=== PATIENT | female | born 1955 | race Two or more races ===

== ENCOUNTER 2019-03-14 18:17 | Inpatient (IN) | payer OTHER ==
[~2019-03-14] VITALS: Ht 167.6 cm; Wt 127.6 kg
[2019-03-14] MEDS ORDERED: ATOR40TA59 PO (18:44)
[2019-03-14] MEDS ORDERED: BENZ0.5T32 PEG (18:44)
[2019-03-14] MEDS ORDERED: TRAM50TA PEG (18:44)
[2019-03-14] MEDS ORDERED: POTA20TA4 PEG (18:44)
[2019-03-14] MEDS ORDERED: CETI10TA16 PEG (18:44)
[2019-03-14] MEDS ORDERED: AMLO10TA8 PEG (18:44)
[2019-03-14] MEDS ORDERED: ASEN10TA9 SL (18:44)
[2019-03-14] MEDS ORDERED: MIRT30TA PEG (18:44)
[2019-03-14] MEDS ORDERED: CLOT15CR4 TP (18:44)
[2019-03-14] MEDS ORDERED: RANI150C PO (18:44)
[2019-03-14] MEDS ORDERED: ROPI1TAB2 PEG (18:44)
[2019-03-14] MEDS ORDERED: METF500T16 PEG (18:44)
[2019-03-14] MEDS ORDERED: LEVO125T5 PEG (18:44)
[2019-03-14] MEDS ORDERED: POLY17PO5 PEG (18:44)
[2019-03-14] MEDS ORDERED: FLUO10CA14 PO (18:44)
[2019-03-14] MEDS ORDERED: INSU100I13 SQ (18:44)
[2019-03-14] MEDS ORDERED: GABA-586 PO (18:44)
[2019-03-14] MEDS ORDERED: MELA3TAB56 PEG (18:44)
[2019-03-14] MEDS ORDERED: METO10TA81 PEG (18:44)
[2019-03-14] MEDS ORDERED: CHOL10003 PEG (18:44)
[2019-03-14] MEDS ORDERED: GABA250S6 PEG (19:45)
[2019-03-14] MEDS ORDERED: FLUO20SO2 PO (19:45)
[2019-03-14] MEDS ORDERED: ATOR20TA58 PEG (19:45)
[2019-03-14] MEDS ORDERED: RANI15SY PEG (19:45)
[2019-03-14] MEDS ORDERED: POLYETHYLENE GLYCOL 3350 17 GM PACKET. PEG PRN (19:45)
[2019-03-14] MEDS ORDERED: INSU100V31 SQ (19:45)
[2019-03-14] MEDS ORDERED: MAGNESIUM HYDROXIDE 2,400 MG/30 ML ORAL.SUSP. PEG PRN (20:00)
[2019-03-14] MEDS ORDERED: MAG HYDROX/AL HYDROX/SIMETH 30 ML ORAL.SUSP PO PRN (20:00)
--- NOTE | 2019-03-14 20:41 | PDOC ---
Exam Note: Bradford Note: Please also refer to the separate dictated note~for this date of service dictated separately. Discussed the patient with Nursing staff reviewed the chart.~Reviewed interim history and current functioning. Reviewed vital signs,~Labs/ Radiology~and current medications noted below. Continue current treatment with the changes noted in the dictated addendum note Current Medications: I have reviewed the current psychotropics carefully including drug interactions. Risk benefit ratio favors no change other than as noted in my dictated progress note. KADEN ROSSI MD Mar 14, 2019 20:41
[2019-03-14] MEDS ORDERED: ATORVASTATIN CALCIUM 20 MG TABLET PO SCH (21:00)
[2019-03-14 21:11] LABS: BASO # 0.1 x10^3/uL (0.0-0.2); BASO % 1 % (0-3); EOS # 0.2 x10^3/uL (0.0-0.7); EOS % 2 % (0-3); HEMOGLOBIN 15.5 g/dL (12.0-15.5); LYMPH % 23 % (24-48); MEAN CORPUSCULAR HEMOGLOBIN 32 pg (25-35); MEAN CORPUSCULAR HGB CONC 33 g/dL (31-37); MEAN CORPUSCULAR VOLUME 96 fL (79-100); MONO # 0.7 x10^3/uL (0.0-1.1); MONO % 8 % (0-9); NEUT # 5.7 x10^3uL (1.8-7.7); NEUT % 66 % (31-73); PLATELET COUNT 235 x10^3/uL (140-400); RED BLOOD COUNT 4.91 x10^6/uL (3.50-5.40); RED CELL DISTRIBUTION WIDTH 14.8 % (11.5-14.5); WHITE BLOOD COUNT 8.6 x10^3/uL (4.0-11.0)
[2019-03-14 21:20] LABS: ALBUMIN 3.4 g/dL (3.4-5.0); ALBUMIN/GLOBULIN RATIO 0.7 (1.0-1.7); CREATININE 1.2 mg/dL (0.6-1.0); GFR 45.7; MAGNESIUM 1.6 mg/dL (1.8-2.4); POTASSIUM 4.2 mmol/L (3.5-5.1); TOTAL BILIRUBIN 1.2 mg/dL (0.2-1.0); TOTAL PROTEIN 8.3 g/dL (6.4-8.2)
[2019-03-14 21:31] LABS: BACTERIA,URINE MOD /HPF (0-FEW); BILIRUBIN,URINE NEG (NEG); CLARITY,URINE HAZY; COLOR,URINE YELLOW; GLUCOSE,URINE >=1000 mg/dL (NEG); NITRITE,URINE NEG (NEG); SQUAMOUS EPITHELIAL CELL,UR MOD /LPF; UROBILINOGEN,URINE 0.2 mg/dL (0.2 mg/dL)
[2019-03-14] MEDS: MELATONIN 3 MG TABLET PEG SCH (21:46)
[2019-03-14] MEDS: BENZTROPINE MESYLATE 0.5 MG TABLET PEG SCH (21:46)
[2019-03-14] MEDS: ATORVASTATIN CALCIUM 20 MG TABLET PEG SCH (21:46)
[2019-03-14] MEDS: rOPINIRole 1 MG TABLET. PEG SCH (21:46)
[2019-03-14] MEDS: GABAPENTIN 250 MG/5 ML ORAL SOLUTION. PO SCH (21:46)
[2019-03-14] MEDS: MIRTAZAPINE 30 MG TABLET PEG SCH (21:46)
[2019-03-14] MEDS: CLOTRIMAZOLE 1% TOPICAL CREAM 30GM TUBE. TP SCH (21:47)
[2019-03-14] MEDS: traMADol 50 MG TABLET PEG PRN (21:47)
[2019-03-14] MEDS: INSULIN GLARGINE SYRINGE. SQ SCH (21:48)
[2019-03-15] MEDS: LEVOTHYROXINE 125 MCG TABLET PEG SCH (05:41)
[2019-03-15 05:58] VITALS: BP 167/81
[2019-03-15] MEDS: GABAPENTIN 250 MG/5 ML ORAL SOLUTION. PO SCH ×2 (07:41→20:37)
[2019-03-15] MEDS: POTASSIUM BICARB 20 MEQ EFFERVESCENT TABLET. PEG SCH (07:41)
[2019-03-15] MEDS: metFORMIN 500 MG TABLET PO SCH ×2 (07:41→17:31)
[2019-03-15] MEDS: CHOLECALCIFEROL (VITAMIN D3) 1,000 UNIT TABLET PEG SCH (07:42)
[2019-03-15] MEDS: CETIRIZINE HCL 10 MG TABLET PEG SCH (07:42)
[2019-03-15] MEDS: METOCLOPRAMIDE 5 MG TABLET PEG SCH ×3 (07:42→17:31)
[2019-03-15] MEDS: FAMOTIDINE 20 MG TABLET PEG SCH ×2 (07:42→17:31)
[2019-03-15] MEDS: amLODIPine BESYLATE 5 MG TABLET PEG SCH (07:42)
[2019-03-15] MEDS: CLOTRIMAZOLE 1% TOPICAL CREAM 30GM TUBE. TP SCH ×2 (07:43→20:37)
[2019-03-15] MEDS: INSULIN LISPRO 300 UNITS/3 ML VIAL. SQ SCH ×3 (08:12→17:33)
[2019-03-15] MEDS ORDERED: FLU VAX QS 2019-20 (36MOS+)/PF 0.5 ML SYRINGE. VAX IM ONE (09:00)
[2019-03-15] MEDS: traMADol 50 MG TABLET PEG PRN ×2 (10:12→20:37)
[2019-03-15 11:30] VITALS: BP 136/68
[2019-03-15 11:55] LABS: BGAS PH 7.49 (7.35-7.45)
[2019-03-15 11:57] LABS: HEMATOCRIT 42.9 % (36.0-47.0); HEMOGLOBIN 14.2 g/dL (12.0-15.5); RED BLOOD COUNT 4.48 x10^6/uL (3.50-5.40); RED CELL DISTRIBUTION WIDTH 14.6 % (11.5-14.5); WHITE BLOOD COUNT 6.6 x10^3/uL (4.0-11.0)
[2019-03-15 12:04] LABS: ALBUMIN 3.1 g/dL (3.4-5.0); ALBUMIN/GLOBULIN RATIO 0.7 (1.0-1.7); CALCIUM 9.1 mg/dL (8.5-10.1); CREATININE 1.2 mg/dL (0.6-1.0); GFR 45.7; POTASSIUM 4.3 mmol/L (3.5-5.1); TOTAL BILIRUBIN 1.5 mg/dL (0.2-1.0); TOTAL PROTEIN 7.5 g/dL (6.4-8.2)
[2019-03-15 13:12] LABS: THYROID STIM HORMONE (TSH) 4.152 uIU/mL (0.358-3.740)
--- NOTE | 2019-03-15 16:07 | RAD ---
CT HEAD WO CONTRAST History: Partially resected brain tumor for follow-up. Comparison: None. Technique: Noncontrast CT imaging was performed of the head. Exposure: One or more of the following individualized dose reduction techniques were utilized for this examination: 1. Automated exposure control 2. Adjustment of the mA and/or kV according to patient size 3. Use of iterative reconstruction technique. Findings: No intracranial hemorrhage. No mass effect. No hydrocephalus. Extra-axial spaces are unremarkable. Imaged orbits are unremarkable. Imaged paranasal sinuses are clear. Right mastoid air cells are clear. Postoperative changes left mastoidectomy with surgical clips in the region of the left jugular foramen. Permeative appearance of the left jugular foramen and skull base. Erosive changes extending into the middle ear. Impression: 1. No acute intracranial abnormality. 2. Postoperative changes left mastoidectomy and jugular foramen mass resection with permeative appearance of the skull base. Recommend compares with prior imaging studies. MRI with and without contrast can further better assess if indicated after comparison is made. Electronically signed by: Jamir Arriola DO (03/15/2019 4:04 PM) [id number]
[2019-03-15 16:17] VITALS: BP 118/79
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
[2019-03-15] MEDS: INSULIN GLARGINE SYRINGE. SQ SCH (20:31)
[2019-03-15] MEDS: MELATONIN 3 MG TABLET PEG SCH (20:36)
[2019-03-15] MEDS: MIRTAZAPINE 30 MG TABLET PEG SCH (20:36)
[2019-03-15] MEDS: BENZTROPINE MESYLATE 0.5 MG TABLET PEG SCH (20:37)
[2019-03-15] MEDS: rOPINIRole 1 MG TABLET. PEG SCH (20:37)
--- NOTE | 2019-03-15 20:53 | PDOC ---
Exam Note: Bradford Note: Please also refer to the separate dictated note~for this date of service dictated separately.~Patient seen individually. Discussed the patient with Nursing staff reviewed the chart.~Reviewed interim history and current functioning. Reviewed vital signs,~Labs/ Radiology~and current medications noted below. Continue current treatment with the changes noted in the dictated addendum note Assessment: Vital Signs/I&O: Vital Signs Date Time Temp Pulse Resp B/P (MAP) Pulse Ox O2 Delivery O2 Flow Rate FiO2 03/15/19 20:37 99 03/15/19 16:17 97.6 98 18 118/79 (92) 03/15/19 11:30 NonRebreather Mask 5.0 I & O 03/14/19 03/14/19 03/15/19 15:00 23:00 07:00 Intake Total 120 ml Balance 120 ml Labs: Laboratory Tests Test 03/14/19 20:53 03/14/19 21:46 03/15/19 08:05 03/15/19 11:35 White Blood Count 8.6 x10^3/uL (4.0-11.0) 6.6 x10^3/uL (4.0-11.0) Red Blood Count 4.91 x10^6/uL (3.50-5.40) 4.48 x10^6/uL (3.50-5.40) Hemoglobin 15.5 g/dL (12.0-15.5) 14.2 g/dL (12.0-15.5) Hematocrit 47.0 % (36.0-47.0) 42.9 % (36.0-47.0) Mean Corpuscular Volume 96 fL (79-100) 96 fL (79-100) Mean Corpuscular Hemoglobin 32 pg (25-35) 32 pg (25-35) Mean Corpuscular Hemoglobin Concent 33 g/dL (31-37) 33 g/dL (31-37) Red Cell Distribution Width 14.8 % (11.5-14.5) H 14.6 % (11.5-14.5) H Platelet Count 235 x10^3/uL (140-400) 192 x10^3/uL (140-400) Neutrophils (%) (Auto) 66 % (31-73) Lymphocytes (%) (Auto) 23 % (24-48) L Monocytes (%) (Auto) 8 % (0-9) Eosinophils (%) (Auto) 2 % (0-3) Basophils (%) (Auto) 1 % (0-3) Neutrophils # (Auto) 5.7 x10^3uL (1.8-7.7) Lymphocytes # (Auto) 2.0 x10^3/uL (1.0-4.8) Monocytes # (Auto) 0.7 x10^3/uL (0.0-1.1) Eosinophils # (Auto) 0.2 x10^3/uL (0.0-0.7) Basophils # (Auto) 0.1 x10^3/uL (0.0-0.2) Sodium Level 139 mmol/L (136-145) 138 mmol/L (136-145) Potassium Level 4.2 mmol/L (3.5-5.1) 4.3 mmol/L (3.5-5.1) Chloride Level 101 mmol/L (98-107) 99 mmol/L (98-107) Carbon Dioxide Level 28 mmol/L (21-32) 29 mmol/L (21-32) Anion Gap 10 (6-14) 10 (6-14) Blood Urea Nitrogen 22 mg/dL (7-20) H 21 mg/dL (7-20) H Creatinine 1.2 mg/dL (0.6-1.0) H 1.2 mg/dL (0.6-1.0) H Estimated GFR (Cockcroft-Gault) 45.7 45.7 BUN/Creatinine Ratio 18 (6-20) 18 (6-20) Glucose Level 262 mg/dL (70-99) H 223 mg/dL (70-99) H Calcium Level 9.0 mg/dL (8.5-10.1) 9.1 mg/dL (8.5-10.1) Magnesium Level 1.6 mg/dL (1.8-2.4) L Iron Level 54 ug/dL (50-170) Total Iron Binding Capacity 310 ug/dL (250-450) Iron Saturation 17 % (15-34) Total Bilirubin 1.2 mg/dL (0.2-1.0) H 1.5 mg/dL (0.2-1.0) H Aspartate Amino Transferase (AST) 17 U/L (15-37) 15 U/L (15-37) Alanine Aminotransferase (ALT) 18 U/L (14-59) 15 U/L (14-59) Alkaline Phosphatase 101 U/L (46-116) 85 U/L (46-116) Total Protein 8.3 g/dL (6.4-8.2) H 7.5 g/dL (6.4-8.2) Albumin 3.4 g/dL (3.4-5.0) 3.1 g/dL (3.4-5.0) L Albumin/Globulin Ratio 0.7 (1.0-1.7) L 0.7 (1.0-1.7) L Triglycerides Level 141 mg/dL (0-150) Cholesterol Level 153 mg/dL (0-200) LDL Cholesterol, Calculated 59 mg/dL (0-100) VLDL Cholesterol, Calculated 28 mg/dL (0-40) Non-HDL Cholesterol Calculated 87 mg/dL (0-129) HDL Cholesterol 66 mg/dL (40-60) H Cholesterol/HDL Ratio 2.0 Vitamin B12 Level 284 pg/mL (247-911) 25-Hydroxy Vitamin D Total 21.3 ng/mL (30-100) L Thyroid Stimulating Hormone (TSH) 4.152 uIU/mL (0.358-3.740) Treponema pallidum Antibody Nonreactive (Nonreactive) Glucose (Fingerstick) 304 mg/dL (70-99) H 298 mg/dL (70-99) H Test 03/15/19 11:40 03/15/19 12:43 03/15/19 17:17 03/15/19 19:05 Blood pH 7.49 (7.35-7.45) H Blood Gas PCO2 33 mmHg (35-45) L Blood Gas PO2 90 mmHg (80-100) Blood Gas HCO3 25 mmol/L (22-26) Arterial Bld O2 Saturation (Calc) 98 % (92-99) FiO2 21 % Glucose (Fingerstick) 164 mg/dL (70-99) H 155 mg/dL (70-99) H 208 mg/dL (70-99) H Current Medications: Meds: Current Medications Medications (Trade) Dose Ordered Sig/Earnest Route PRN Reason Start Time Stop Time Status Last Admin Dose Admin Amlodipine Besylate (Norvasc) 5 mg DAILY PEG 03/15/19 09:00 03/15/19 07:42 Cetirizine HCl (ZyrTEC) 10 mg DAILY PEG 03/15/19 09:00 03/15/19 07:42 Vitamin D (Vitamin D3) 2,000 unit DAILY PEG 03/15/19 09:00 03/15/19 07:42 Clotrimazole (Lotrimin) 1 kleber BID TP 03/14/19 21:00 03/15/19 20:37 Gabapentin (Neurontin Oral Soln) 500 mg BID PO 03/14/19 21:00 03/15/19 20:37 Levothyroxine Sodium (Synthroid) 125 mcg DAILY06 PEG 03/15/19 06:00 03/15/19 05:41 Metformin HCl (Glucophage) 500 mg BIDWMEALS PO 03/15/19 08:00 03/15/19 17:31 Metoclopramide HCl (Reglan) 5 mg TIDAC PEG 03/15/19 07:30 03/15/19 17:31 Potassium Bicarbonate (Potassium Effervescent Tablet) 20 meq DAILY PEG 03/15/19 09:00 03/15/19 07:41 Ropinirole HCl (Requip) 1 mg QHS PEG 03/14/19 21:00 03/15/19 20:37 Insulin Human Lispro (HumaLOG) 4 units TIDAC SQ 03/15/19 07:30 03/15/19 17:33 Insulin Glargine (Lantus Syringe) 6 unit QHS SQ 03/14/19 21:00 03/15/19 20:31 Famotidine (Pepcid) 20 mg BIDBFRMEAL PEG 03/15/19 07:30 03/15/19 17:31 Benztropine Mesylate (Cogentin) 0.5 mg QHS PEG 03/14/19 21:00 03/15/19 20:37 Fluoxetine HCl (PROzac ORAL SOLN) 10 mg DAILY PEG 03/15/19 09:00 03/15/19 07:43 Melatonin (Melatonin) 3 mg QHS PEG 03/14/19 21:00 03/15/19 20:36 Mirtazapine (Remeron) 30 mg QHS PEG 03/14/19 21:00 03/15/19 20:36 Atorvastatin Calcium (Lipitor) 20 mg QHS PEG 03/14/19 21:14 03/14/19 21:46 I have reviewed the current psychotropics carefully including drug interactions. Risk benefit ratio favors no change other than as noted in my dictated progress note. Diagnosis: Problems: (1) Major depressive disorder, recurrent episode (2) Anxiety disorder KADEN ROSSI MD Mar 15, 2019 20:53
[2019-03-16 00:48] VITALS: BP 0/81
[2019-03-16 06:00] VITALS: BP 173/90
[2019-03-16] MEDS: LEVOTHYROXINE 125 MCG TABLET PEG SCH (06:01)
[2019-03-16 06:07] LABS: HEMOGLOBIN A1C 8.7 % (4.8-5.6); THYROXINE 9.3 ug/dL (4.5-12.0)
[2019-03-16] MEDS: amLODIPine BESYLATE 5 MG TABLET PEG SCH (08:34)
[2019-03-16] MEDS: metFORMIN 500 MG TABLET PO SCH ×2 (08:34→17:00)
[2019-03-16] MEDS: FAMOTIDINE 20 MG TABLET PEG SCH ×2 (08:34→16:30)
[2019-03-16] MEDS: CETIRIZINE HCL 10 MG TABLET PEG SCH (08:34)
[2019-03-16] MEDS: METOCLOPRAMIDE 5 MG TABLET PEG SCH ×3 (08:35→16:30)
[2019-03-16] MEDS: CHOLECALCIFEROL (VITAMIN D3) 1,000 UNIT TABLET PEG SCH (08:35)
[2019-03-16] MEDS: POTASSIUM BICARB 20 MEQ EFFERVESCENT TABLET. PEG SCH (08:35)
[2019-03-16] MEDS: CLOTRIMAZOLE 1% TOPICAL CREAM 30GM TUBE. TP SCH ×2 (08:36→21:00)
[2019-03-16] MEDS: INSULIN LISPRO 300 UNITS/3 ML VIAL. SQ SCH ×3 (08:39→16:30)
[2019-03-16] MEDS: GABAPENTIN 250 MG/5 ML ORAL SOLUTION. PO SCH ×2 (08:44→20:05)
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
--- NOTE | 2019-03-16 15:13 | RAD ---
Esophagram 03/16/2019 CLINICAL HISTORY: The patient tried hanging herself yesterday with difficulty swallowing today. TECHNIQUE: An esophagram was performed under fluoroscopic control. The total fluoroscopic time is 3.5 minutes. 36 digital spot radiographs were obtained. FINDINGS: A PA radiograph of the chest was obtained as a clinical dermatologist. This demonstrates the cardiac silhouette to be borderline enlarged. The thoracic aorta is mildly tortuous. Left lower lobe subsegmental atelectasis and/or infiltrate is noted. There may be a small left pleural effusion. No pneumothorax is seen. Degenerative changes are seen involving the thoracic spine. The mucosal pattern of the hypopharynx and esophagus is within normal limits. The patient demonstrates mild penetration with swallowing the thin liquid barium. No aspiration is seen. Surgical clips are seen throughout the neck. There is prominence of the cricopharyngeus muscle without evidence of obstruction of flow of the barium into the cervical esophagus. Tertiary contractions of the esophagus are seen consistent with moderate to severe esophageal dysmotility. The GE junction is within normal limits. The patient was unable to be evaluated for reflux due to her limited mobility. IMPRESSION: 1. Mild laryngeal penetration. 2. Moderate to severe esophageal dysmotility. Electronically signed by: Minh Rothman MD (03/16/2019 3:10 PM) [id number]
[2019-03-16 16:01] VITALS: BP 149/85
[2019-03-16] MEDS: MIRTAZAPINE 30 MG TABLET PEG SCH (20:04)
[2019-03-16] MEDS: BENZTROPINE MESYLATE 0.5 MG TABLET PEG SCH (20:04)
[2019-03-16] MEDS: MELATONIN 3 MG TABLET PEG SCH (20:05)
[2019-03-16] MEDS: ATORVASTATIN CALCIUM 20 MG TABLET PEG SCH (20:05)
[2019-03-16] MEDS: rOPINIRole 1 MG TABLET. PEG SCH (20:05)
[2019-03-16] MEDS: INSULIN GLARGINE SYRINGE. SQ SCH (20:06)
--- NOTE | 2019-03-16 20:25 | PDOC ---
Exam Note: Bradford Note: Please also refer to the separate dictated note~for this date of service dictated separately.~Patient seen individually. Discussed the patient with Nursing staff reviewed the chart.~Reviewed interim history and current functioning. Reviewed vital signs,~Labs/ Radiology~and current medications noted below. Continue current treatment with the changes noted in the dictated addendum note Assessment: Vital Signs/I&O: Vital Signs Date Time Temp Pulse Resp B/P (MAP) Pulse Ox O2 Delivery O2 Flow Rate FiO2 03/16/19 16:01 98.1 116 20 149/85 (106) 94 03/15/19 11:30 NonRebreather Mask 5.0 I & O 03/15/19 03/15/19 03/16/19 15:00 23:00 07:00 Intake Total 300 ml 320 ml 80 ml Balance 300 ml 320 ml 80 ml Labs: Laboratory Tests Test 03/16/19 07:36 03/16/19 13:24 03/16/19 17:25 03/16/19 19:10 Glucose (Fingerstick) 176 mg/dL (70-99) H 248 mg/dL (70-99) H 255 mg/dL (70-99) H 323 mg/dL (70-99) H Current Medications: I have reviewed the current psychotropics carefully including drug interactions. Risk benefit ratio favors no change other than as noted in my dictated progress note. Diagnosis: Problems: (1) Anxiety disorder (2) Major depressive disorder, recurrent episode KADEN ROSSI MD Mar 16, 2019 20:25
[2019-03-17 05:33] VITALS: BP 168/74
[2019-03-17] MEDS: LEVOTHYROXINE 125 MCG TABLET PEG SCH (05:48)
[2019-03-17] MEDS: INSULIN LISPRO 300 UNITS/3 ML VIAL. SQ SCH ×3 (07:30→16:30)
[2019-03-17] MEDS: POTASSIUM BICARB 20 MEQ EFFERVESCENT TABLET. PEG SCH (08:47)
[2019-03-17] MEDS: metFORMIN 500 MG TABLET PO SCH ×2 (08:48→17:00)
[2019-03-17] MEDS: CETIRIZINE HCL 10 MG TABLET PEG SCH (08:48)
[2019-03-17] MEDS: METOCLOPRAMIDE 5 MG TABLET PEG SCH ×3 (08:48→16:30)
[2019-03-17] MEDS: FAMOTIDINE 20 MG TABLET PEG SCH ×2 (08:48→16:30)
[2019-03-17] MEDS: CHOLECALCIFEROL (VITAMIN D3) 1,000 UNIT TABLET PEG SCH (08:48)
[2019-03-17] MEDS: amLODIPine BESYLATE 5 MG TABLET PEG SCH (08:48)
[2019-03-17] MEDS: ARIPiprazole 5 MG TABLET PO SCH (08:55)
[2019-03-17] MEDS: GABAPENTIN 250 MG/5 ML ORAL SOLUTION. PO SCH ×2 (08:55→23:39)
[2019-03-17] MEDS: CLOTRIMAZOLE 1% TOPICAL CREAM 30GM TUBE. TP SCH ×2 (09:00→21:00)
[2019-03-17 15:47] VITALS: BP 157/73
[2019-03-17] MEDS: BENZTROPINE MESYLATE 0.5 MG TABLET PEG SCH (21:00)
[2019-03-17] MEDS: INSULIN GLARGINE SYRINGE. SQ SCH (21:00)
[2019-03-17] MEDS: ATORVASTATIN CALCIUM 20 MG TABLET PEG SCH (21:00)
[2019-03-17] MEDS: MELATONIN 3 MG TABLET PEG SCH (23:40)
[2019-03-17] MEDS: MIRTAZAPINE 30 MG TABLET PEG SCH (23:40)
[2019-03-17] MEDS: rOPINIRole 1 MG TABLET. PEG SCH (23:40)
[2019-03-18] MEDS: LEVOTHYROXINE 125 MCG TABLET PEG SCH (05:49)
[2019-03-18 05:58] VITALS: BP 166/89
[2019-03-18] MEDS: INSULIN LISPRO 300 UNITS/3 ML VIAL. SQ SCH ×3 (07:30→16:30)
[2019-03-18] MEDS: CLOTRIMAZOLE 1% TOPICAL CREAM 30GM TUBE. TP SCH ×2 (09:00→21:17)
[2019-03-18] MEDS: POTASSIUM BICARB 20 MEQ EFFERVESCENT TABLET. PEG SCH (09:00)
[2019-03-18] MEDS: GABAPENTIN 250 MG/5 ML ORAL SOLUTION. PO SCH ×2 (10:07→21:17)
[2019-03-18] MEDS: ARIPiprazole 5 MG TABLET PO SCH (10:07)
[2019-03-18] MEDS: FAMOTIDINE 20 MG TABLET PEG SCH ×2 (10:07→16:30)
[2019-03-18] MEDS: CHOLECALCIFEROL (VITAMIN D3) 1,000 UNIT TABLET PEG SCH (10:07)
[2019-03-18] MEDS: amLODIPine BESYLATE 5 MG TABLET PEG SCH (10:07)
[2019-03-18] MEDS: CETIRIZINE HCL 10 MG TABLET PEG SCH (10:07)
[2019-03-18] MEDS: metFORMIN 500 MG TABLET PO SCH ×2 (10:07→17:00)
[2019-03-18] MEDS: METOCLOPRAMIDE 5 MG TABLET PEG SCH ×3 (10:08→16:30)
[2019-03-18 16:11] VITALS: BP 145/82
[2019-03-18] MEDS: MELATONIN 3 MG TABLET PEG SCH (21:17)
[2019-03-18] MEDS: rOPINIRole 1 MG TABLET. PEG SCH (21:18)
[2019-03-18] MEDS: ATORVASTATIN CALCIUM 20 MG TABLET PEG SCH (21:18)
[2019-03-18] MEDS: MIRTAZAPINE 30 MG TABLET PEG SCH (21:18)
[2019-03-18] MEDS: BENZTROPINE MESYLATE 0.5 MG TABLET PEG SCH (21:18)
[2019-03-18] MEDS: traMADol 50 MG TABLET PEG PRN (21:21)
[2019-03-18] MEDS: INSULIN GLARGINE SYRINGE. SQ SCH (21:21)
--- NOTE | 2019-03-18 21:51 | PDOC ---
Exam Note: Bradford Note: This is a late entry for DOS 03/17/2019. Please also refer to the separate dictated note~for this date of service dictated separately.~Patient seen individually. Discussed the patient with Nursing staff reviewed the chart.~Reviewed interim history and current functioning. Reviewed vital signs,~Labs/ Radiology~and current medications noted below. Continue current treatment with the changes noted in the dictated addendum note Assessment: Vital Signs/I&O: Vital Signs Date Time Temp Pulse Resp B/P (MAP) Pulse Ox O2 Delivery O2 Flow Rate FiO2 03/18/19 16:11 97.4 85 20 145/82 (103) 98 03/17/19 05:33 Room Air 03/15/19 11:30 5.0 I & O 03/17/19 03/17/19 03/18/19 15:00 23:00 07:00 Intake Total 120 ml 0 ml 240 ml Balance 120 ml 0 ml 240 ml Labs: Laboratory Tests Test 03/18/19 07:26 03/18/19 12:37 03/18/19 17:54 03/18/19 20:10 Glucose (Fingerstick) 270 mg/dL (70-99) H 338 mg/dL (70-99) H 291 mg/dL (70-99) H 293 mg/dL (70-99) H Current Medications: I have reviewed the current psychotropics carefully including drug interactions. Risk benefit ratio favors no change other than as noted in my dictated progress note. Diagnosis: Problems: (1) Anxiety disorder (2) Major depressive disorder, recurrent episode KADEN ROSSI MD Mar 18, 2019 21:51
[2019-03-19 05:53] VITALS: BP 159/93
[2019-03-19] MEDS: LEVOTHYROXINE 125 MCG TABLET PEG SCH (06:00)
[2019-03-19] MEDS: CLOTRIMAZOLE 1% TOPICAL CREAM 30GM TUBE. TP SCH ×2 (09:00→21:27)
[2019-03-19] MEDS: metFORMIN 500 MG TABLET PO SCH ×2 (09:35→17:20)
[2019-03-19] MEDS: FAMOTIDINE 20 MG TABLET PEG SCH ×2 (09:35→17:20)
[2019-03-19] MEDS: INSULIN LISPRO 300 UNITS/3 ML VIAL. SQ SCH ×3 (09:35→17:17)
[2019-03-19] MEDS: METOCLOPRAMIDE 5 MG TABLET PEG SCH ×3 (09:35→17:20)
[2019-03-19] MEDS: amLODIPine BESYLATE 5 MG TABLET PEG SCH (09:36)
[2019-03-19] MEDS: POTASSIUM BICARB 20 MEQ EFFERVESCENT TABLET. PEG SCH (09:37)
[2019-03-19] MEDS: CHOLECALCIFEROL (VITAMIN D3) 1,000 UNIT TABLET PEG SCH (09:38)
[2019-03-19] MEDS: ARIPiprazole 5 MG TABLET PO SCH (09:39)
[2019-03-19] MEDS: GABAPENTIN 250 MG/5 ML ORAL SOLUTION. PO SCH ×2 (09:39→21:28)
--- NOTE | 2019-03-19 10:33 | PN ---
DATE: 03/16/2019 PSYCHIATRIC PROGRESS NOTE This late entry 03/16/2019 covers elements not covered in my initial note. SUBJECTIVE: I met with the patient evening of 03/16/2019. Per JOSETTE Walker, the patient slept 7-1/2 hours previous night. She has a PEG tube. Albumin 5. She has been somewhat withdrawn, depressed. Complains of feeling hopeless. Denies active suicidal ideation. REVIEW OF SYSTEMS: Impaired ambulation in wheelchair, difficulty swallowing due to her esophageal problems. No CV, system symptoms on review. MENTAL STATUS EXAM: Reasonably oriented. Speech has some latency, low in volume, coherent, abstraction fair, computation impaired, language function intact, attention span short. Mood and affect still somewhat withdrawn. LABORATORY DATA: Reviewed. IMPRESSION: Major depressive disorder with psychotic features; anxiety disorder, unspecified. PLAN: The patient is currently on Prozac 10 mg a day. We will increase to 20 mg a day. Maintain Remeron 30 mg at bedtime, melatonin 3 mg at bedtime. She is on benztropine 0.5 mg at bedtime, may add Abilify to augment the Prozac and as an atypical antipsychotic that we could use via the PEG tube. KADEN ROSSI MD DR: LAWSON/dimitri JOB#: [id number] / [id number]
[2019-03-19] MEDS: LORazepam INTENSOL 2 MG/ML BOTTLE SL PRN ×2 (13:06→20:57)
[2019-03-19 16:02] VITALS: BP 137/90
--- NOTE | 2019-03-19 20:24 | PDOC ---
Exam Note: Bradford Note: Please also refer to the separate dictated note~for this date of service dictated separately.~Patient seen individually. Discussed the patient with Nursing staff reviewed the chart.~Reviewed interim history and current functioning. Reviewed vital signs,~Labs/ Radiology~and current medications noted below. Continue current treatment with the changes noted in the dictated addendum note Assessment: Vital Signs/I&O: Vital Signs Date Time Temp Pulse Resp B/P (MAP) Pulse Ox O2 Delivery O2 Flow Rate FiO2 03/19/19 16:02 97.6 111 16 137/90 (106) 98 03/17/19 05:33 Room Air 03/15/19 11:30 5.0 I & O 0 03/18/19 03/18/19 03/19/19 15:00 23:00 07:00 Intake Total 480 ml 0 ml Balance 480 ml 0 ml Labs: Laboratory Tests Test 03/19/19 08:04 03/19/19 11:50 03/19/19 17:10 Glucose (Fingerstick) 261 mg/dL (70-99) H 309 mg/dL (70-99) H 192 mg/dL (70-99) H Current Medications: Meds: Current Medications Medications (Trade) Dose Ordered Sig/Earnest Route PRN Reason Start Time Stop Time Status Last Admin Dose Admin Lorazepam (Ativan Intensol) 0.5 mg PRN Q2HR PRN SL ANXIETY / AGITATION 03/19/19 11:15 03/19/19 13:06 I have reviewed the current psychotropics carefully including drug interactions. Risk benefit ratio favors no change other than as noted in my dictated progress note. Diagnosis: Problems: (1) Anxiety disorder (2) Major depressive disorder, recurrent episode KADEN ROSSI MD Mar 19, 2019 20:24
[2019-03-19] MEDS: INSULIN GLARGINE SYRINGE. SQ SCH (21:02)
[2019-03-19] MEDS: MIRTAZAPINE ODT 30 MG TAB.RAPDIS. PEG SCH (21:27)
[2019-03-19] MEDS: BENZTROPINE MESYLATE 0.5 MG TABLET PEG SCH (21:27)
[2019-03-19] MEDS: rOPINIRole 1 MG TABLET. PEG SCH (21:27)
[2019-03-19] MEDS: ATORVASTATIN CALCIUM 20 MG TABLET PEG SCH (21:27)
[2019-03-19] MEDS: MELATONIN 3 MG TABLET PEG SCH (21:28)
[2019-03-19] MEDS: traMADol 50 MG TABLET PEG PRN (21:30)
--- NOTE | 2019-03-20 03:11 | PN ---
DATE: 03/18/2019 PSYCHIATRIC PROGRESS NOTE This late entry 03/18/2019 covers elements not covered in my initial note. SUBJECTIVE: I met with the patient at length the evening of 03/18/2019. Discussed with nursing staff at length, reviewed the chart. The patient has again had a very dramatic day. She took some silverware from the dining room and tried to cut her wrist under the table despite being on one-on-one status. She continues to minimize and rationalize this and her judgment remains impaired. She is wanting to leave the hospital because she states she signed herself in. She has previously tried to strangulate herself and now tried to slash her wrists and in between refusing all treatments and interventions because staff would not permit her to eat orally consequent to marked aspiration risk and secondary to esophageal problems. As previously mentioned, her power of manager multimedia, which she has previously designated, should be activated to help for the health decisions. REVIEW OF SYSTEMS: Ambulation impaired, in wheelchair. No CV, or pulmonary system symptoms on review. MENTAL STATUS EXAM: Reasonably oriented. Speech has some latency, coherent. Abstraction fair, computation impaired, language function intact, attention span short. Mood and affect withdrawn, depressed. LABORATORY DATA: Reviewed. IMPRESSION: Major depressive disorder, recurrent with possible psychotic features; anxiety disorder, unspecified. Rest unchanged. PLAN: Increase Abilify to 10 mg a day. Continue rest of the psychotropics. Prozac was previously increased. Social service staff to coordinate power of manager multimedia activation or transfer back to the [facility]. We initially took the patient since the [facility] had no beds available for her. MAN Lennox ROSSI MD DR: LAWSON/dimitri JOB#: [id number] / [id number]
--- NOTE | 2019-03-20 03:51 | PN ---
DATE: 03/17/2019 PSYCHIATRIC PROGRESS NOTE This late entry of 03/17 covers elements not covered in my initial note. SUBJECTIVE: I met with the patient at length on the evening of 03/17. The patient slept 6-1/2 hours the previous night. She refused her meds and labs, and refusing to get her PEG tube feeding because staff had contacted [facility] and they informed the staff that the patient was not to have anything orally. The patient states she just wants some food in her mouth to taste and spit out. She states she understands the risks of aspiration, but does not care about this. She remains on one-on-one status, but is extremely depressed, has great difficulty accepting the consequences of her actions, and her judgment in this respect is impaired. It would be beneficial to activate her power of cooler conveyor loader that has been previously designated to help her make rational decisions in her own care. She did try to strangulate herself shortly after admission, following which she was placed on one-on-one status. She rationalizes this, minimizes what she did, limited insight. REVIEW OF SYSTEMS: Impaired ambulation. No CV, , pulmonary, eye system symptoms on review. MENTAL STATUS EXAMINATION: Reasonably oriented. Speech is coherent, abstraction fair, computation somewhat impaired, language function intact. Mood and affect depressed. She is quite paranoid of the staff. LABORATORY DATA: Reviewed. IMPRESSION: Major depressive disorder, recurrent, severe with possible psychotic features; anxiety disorder, unspecified; posttraumatic stress disorder. PLAN: I had a lengthy discussion with the patient. I have discussed with Johnie RN, nursing staff that she is permitted to have ice cubes, perhaps we could make these flavored to help satisfy some of her need to be able to taste something, and staff will work with the related specialty staff to come up with a plan about this. We continue to encourage her to take her psychotropics. Prozac was increased and she is on Abilify to augment the Prozac and, as an atypical antipsychotic, Remeron and melatonin; we will adjust as clinically indicated. MAN Lennox ROSSI MD DR: LAWSON/dimitri JOB#: [id number] / [id number]
[2019-03-20] MEDS: LEVOTHYROXINE 125 MCG TABLET PEG SCH (05:55)
[2019-03-20 06:18] VITALS: BP 170/92
[2019-03-20] MEDS: GABAPENTIN 250 MG/5 ML ORAL SOLUTION. PO SCH ×2 (10:05→21:07)
[2019-03-20] MEDS: CETIRIZINE 5 MG/5 ML ORAL SOLUTION. PEG SCH (10:05)
[2019-03-20] MEDS: amLODIPine BESYLATE 5 MG TABLET PEG SCH (10:06)
[2019-03-20] MEDS: ARIPiprazole 10 MG TABLET PO SCH (10:06)
[2019-03-20] MEDS: FAMOTIDINE 20 MG TABLET PEG SCH ×2 (10:06→18:05)
[2019-03-20] MEDS: POTASSIUM BICARB 20 MEQ EFFERVESCENT TABLET. PEG SCH (10:06)
[2019-03-20] MEDS: CHOLECALCIFEROL (VITAMIN D3) 1,000 UNIT TABLET PEG SCH (10:06)
[2019-03-20] MEDS: METOCLOPRAMIDE 5 MG TABLET PEG SCH ×3 (10:07→18:05)
[2019-03-20] MEDS: CLOTRIMAZOLE 1% TOPICAL CREAM 30GM TUBE. TP SCH ×2 (10:07→21:08)
[2019-03-20] MEDS: metFORMIN 500 MG TABLET PO SCH ×2 (10:07→18:06)
[2019-03-20] MEDS: LORazepam INTENSOL 2 MG/ML BOTTLE SL PRN ×3 (10:11→18:36)
[2019-03-20] MEDS: INSULIN LISPRO 300 UNITS/3 ML VIAL. SQ SCH ×3 (10:12→18:10)
[2019-03-20 15:47] VITALS: BP 138/81
--- NOTE | 2019-03-20 20:48 | PDOC ---
Exam Note: Bradford Note: Please also refer to the separate dictated note~for this date of service dictated separately.~Patient seen individually. Discussed the patient with Nursing staff reviewed the chart.~Reviewed interim history and current functioning. Reviewed vital signs,~Labs/ Radiology~and current medications noted below. Continue current treatment with the changes noted in the dictated addendum note Assessment: Vital Signs/I&O: Vital Signs Date Time Temp Pulse Resp B/P (MAP) Pulse Ox O2 Delivery O2 Flow Rate FiO2 03/20/19 15:47 97.6 97 16 138/81 (100) 97 03/20/19 06:18 Room Air 03/15/19 11:30 5.0 I & O 0 03/19/19 03/19/19 03/20/19 15:00 23:00 07:00 Intake Total 0 ml 0 ml Balance 0 ml 0 ml Labs: Laboratory Tests Test 03/20/19 07:31 03/20/19 13:33 03/20/19 18:06 03/20/19 19:11 Glucose (Fingerstick) 243 mg/dL (70-99) H 210 mg/dL (70-99) H 142 mg/dL (70-99) H 158 mg/dL (70-99) H Current Medications: Meds: Current Medications Medications (Trade) Dose Ordered Sig/Earnest Route PRN Reason Start Time Stop Time Status Last Admin Dose Admin Cetirizine HCl (ZyrTEC ORAL SOLN) 10 mg DAILY PEG 03/20/19 09:00 03/20/19 10:05 Mirtazapine (Remeron Jes-Tab) 30 mg QHS PEG 03/19/19 21:00 03/19/19 21:27 Aripiprazole (Abilify) 10 mg DAILY PO 03/20/19 09:00 03/22/19 23:00 03/20/19 10:06 Fluvoxamine Maleate (Luvox) 25 mg DAILY PO 03/20/19 09:00 03/23/19 08:59 03/20/19 10:05 I have reviewed the current psychotropics carefully including drug interactions. Risk benefit ratio favors no change other than as noted in my dictated progress note. Diagnosis: Problems: (1) Anxiety disorder (2) Major depressive disorder, recurrent episode KADEN ROSSI MD Mar 20, 2019 20:48
[2019-03-20] MEDS: INSULIN GLARGINE SYRINGE. SQ SCH (21:06)
[2019-03-20] MEDS: ATORVASTATIN CALCIUM 20 MG TABLET PEG SCH (21:08)
[2019-03-20] MEDS: BENZTROPINE MESYLATE 0.5 MG TABLET PEG SCH (21:08)
[2019-03-20] MEDS: MIRTAZAPINE ODT 30 MG TAB.RAPDIS. PEG SCH (21:08)
[2019-03-20] MEDS: MELATONIN 3 MG TABLET PEG SCH (21:08)
[2019-03-20] MEDS: rOPINIRole 1 MG TABLET. PEG SCH (21:08)
[2019-03-21 05:53] VITALS: BP 163/83
[2019-03-21] MEDS: LEVOTHYROXINE 125 MCG TABLET PEG SCH (06:05)
[2019-03-21 08:11] LABS: BASO % 1 % (0-3); EOS # 0.1 x10^3/uL (0.0-0.7); EOS % 3 % (0-3); HEMATOCRIT 40.5 % (36.0-47.0); HEMOGLOBIN 13.3 g/dL (12.0-15.5); LYMPH # 1.2 x10^3/uL (1.0-4.8); LYMPH % 28 % (24-48); MEAN CORPUSCULAR HEMOGLOBIN 32 pg (25-35); MEAN CORPUSCULAR HGB CONC 33 g/dL (31-37); MEAN CORPUSCULAR VOLUME 96 fL (79-100); MONO # 0.4 x10^3/uL (0.0-1.1); MONO % 10 % (0-9); NEUT # 2.6 x10^3uL (1.8-7.7); NEUT % 59 % (31-73); PLATELET COUNT 163 x10^3/uL (140-400); RED BLOOD COUNT 4.22 x10^6/uL (3.50-5.40); WHITE BLOOD COUNT 4.4 x10^3/uL (4.0-11.0)
[2019-03-21 08:16] LABS: ALBUMIN/GLOBULIN RATIO 0.8 (1.0-1.7); CREATININE 1.1 mg/dL (0.6-1.0); GFR 50.5; POTASSIUM 3.8 mmol/L (3.5-5.1); TOTAL BILIRUBIN 0.9 mg/dL (0.2-1.0)
[2019-03-21] MEDS: CETIRIZINE 5 MG/5 ML ORAL SOLUTION. PEG SCH (09:00)
[2019-03-21] MEDS: LORazepam INTENSOL 2 MG/ML BOTTLE SL PRN ×3 (09:06→17:59)
[2019-03-21] MEDS: GABAPENTIN 250 MG/5 ML ORAL SOLUTION. PO SCH ×2 (09:07→20:52)
[2019-03-21] MEDS: POTASSIUM BICARB 20 MEQ EFFERVESCENT TABLET. PEG SCH (09:07)
[2019-03-21] MEDS: CHOLECALCIFEROL (VITAMIN D3) 1,000 UNIT TABLET PEG SCH (09:08)
[2019-03-21] MEDS: ARIPiprazole 10 MG TABLET PO SCH (09:09)
[2019-03-21] MEDS: METOCLOPRAMIDE 5 MG TABLET PEG SCH ×3 (09:09→18:12)
[2019-03-21] MEDS: FAMOTIDINE 20 MG TABLET PEG SCH ×2 (09:09→18:12)
[2019-03-21] MEDS: amLODIPine BESYLATE 5 MG TABLET PEG SCH (09:09)
[2019-03-21] MEDS: metFORMIN 500 MG TABLET PO SCH ×2 (09:09→18:12)
[2019-03-21] MEDS: CLOTRIMAZOLE 1% TOPICAL CREAM 30GM TUBE. TP SCH ×2 (09:10→20:51)
[2019-03-21] MEDS: INSULIN LISPRO 300 UNITS/3 ML VIAL. SQ SCH ×3 (09:13→18:02)
[2019-03-21 16:04] VITALS: BP 153/76
--- NOTE | 2019-03-21 19:05 | PN ---
DATE: 03/19/2019 PSYCHIATRIC PROGRESS NOTE This late entry 03/19/2019 covers elements not covered in my initial note. SUBJECTIVE: I met with the patient evening of 03/19/2019. Discussed with nursing staff throughout the day. The patient had tried to cut her wrist the day before. She remains on one-on-one status, was complaining regarding one of the male nursing surgical services director's room has been changed. She remains extremely obsessive, anxious, minimizes, being depressed, rationalizes her behaviors and blames others for it and only she does is react to what is thrown at her. REVIEW OF SYSTEMS: Ambulation impaired. No CV, , pulmonary, eye system symptoms on review. MENTAL STATUS EXAM: Reasonably oriented. Speech is coherent, abstraction fair, computation impaired, language function intact, attention span short. Mood and affect remains anxious, labile. LABORATORY DATA: Reviewed. IMPRESSION: Unchanged from initial note. PLAN: Change Prozac to Luvox 25 mg a day for 3 days, then 50 mg a day. Abilify is currently 10 mg a day, may need to increase this further. Rest unchanged for now. MAN Lennox ROSSI MD DR: LAWSON/dimitri JOB#: [id number] / [id number]
--- NOTE | 2019-03-21 19:06 | PN ---
DATE: 03/20/2019 PSYCHIATRIC PROGRESS NOTE This late entry 03/20/2019 covers elements not covered in my initial note. SUBJECTIVE: I met with the patient in the evening of 03/20/2019. Per JOSETTE Young, the patient slept 6-1/4 hours previous night. She has been anxious, received Ativan x 2, and is being given a stress ball to help with this. She complains of hearing voices in her left ear and states these are command hallucinations telling her to end her life, but she does not follow through with it. She remains on one-on-one status. REVIEW OF SYSTEMS: Ambulation impaired, in wheelchair. No CV, , pulmonary, eye system symptoms on review. Reliability varies. MENTAL STATUS EXAM: Oriented reasonably. Speech has some latency, low in volume, coherent, abstraction fair, computation impaired, language function intact, attention span short. Mood and affect quite obsessive, anxious, labile, but subjectively states she feels better. LABORATORY DATA: Reviewed. IMPRESSION: Major depressive disorder with psychotic features, obsessive-compulsive disorder; anxiety disorder, unspecified; rule out bipolar disorder, mixed. PLAN: Continue to gradually increase the Luvox. Maintain rest of the psychotropics. Increase Abilify to 15 mg a day after 2 days of 10 mg. Rest unchanged. MAN Lennox ROSSI MD DR: LAWSON/dimitri JOB#: [id number] / [id number]
--- NOTE | 2019-03-21 20:38 | PDOC ---
Exam Note: Bradford Note: Please also refer to the separate dictated note~for this date of service dictated separately.~Patient seen individually. Discussed the patient with Nursing staff reviewed the chart.~Reviewed interim history and current functioning. Reviewed vital signs,~Labs/ Radiology~and current medications noted below. Continue current treatment with the changes noted in the dictated addendum note Assessment: Vital Signs/I&O: Vital Signs Date Time Temp Pulse Resp B/P (MAP) Pulse Ox O2 Delivery O2 Flow Rate FiO2 03/21/19 16:04 97.3 116 16 153/76 (101) 97 03/20/19 06:18 Room Air 03/15/19 11:30 5.0 I & O 03/20/19 03/20/19 03/21/19 15:00 23:00 07:00 Intake Total 372 ml 375 ml Balance 372 ml 375 ml Labs: Laboratory Tests Test 03/21/19 06:40 03/21/19 08:07 03/21/19 12:19 03/21/19 16:49 White Blood Count 4.4 x10^3/uL (4.0-11.0) Red Blood Count 4.22 x10^6/uL (3.50-5.40) Hemoglobin 13.3 g/dL (12.0-15.5) Hematocrit 40.5 % (36.0-47.0) Mean Corpuscular Volume 96 fL (79-100) Mean Corpuscular Hemoglobin 32 pg (25-35) Mean Corpuscular Hemoglobin Concent 33 g/dL (31-37) Red Cell Distribution Width 14.0 % (11.5-14.5) Platelet Count 163 x10^3/uL (140-400) Neutrophils (%) (Auto) 59 % (31-73) Lymphocytes (%) (Auto) 28 % (24-48) Monocytes (%) (Auto) 10 % (0-9) H Eosinophils (%) (Auto) 3 % (0-3) Basophils (%) (Auto) 1 % (0-3) Neutrophils # (Auto) 2.6 x10^3uL (1.8-7.7) Lymphocytes # (Auto) 1.2 x10^3/uL (1.0-4.8) Monocytes # (Auto) 0.4 x10^3/uL (0.0-1.1) Eosinophils # (Auto) 0.1 x10^3/uL (0.0-0.7) Basophils # (Auto) 0.0 x10^3/uL (0.0-0.2) Sodium Level 141 mmol/L (136-145) Potassium Level 3.8 mmol/L (3.5-5.1) Chloride Level 103 mmol/L (98-107) Carbon Dioxide Level 29 mmol/L (21-32) Anion Gap 9 (6-14) Blood Urea Nitrogen 27 mg/dL (7-20) H Creatinine 1.1 mg/dL (0.6-1.0) H Estimated GFR (Cockcroft-Gault) 50.5 BUN/Creatinine Ratio 25 (6-20) H Glucose Level 175 mg/dL (70-99) H Calcium Level 9.0 mg/dL (8.5-10.1) Magnesium Level 2.0 mg/dL (1.8-2.4) Total Bilirubin 0.9 mg/dL (0.2-1.0) Aspartate Amino Transferase (AST) 19 U/L (15-37) Alanine Aminotransferase (ALT) 12 U/L (14-59) L Alkaline Phosphatase 67 U/L (46-116) Total Protein 7.0 g/dL (6.4-8.2) Albumin 3.0 g/dL (3.4-5.0) L Albumin/Globulin Ratio 0.8 (1.0-1.7) L Glucose (Fingerstick) 193 mg/dL (70-99) H 184 mg/dL (70-99) H 115 mg/dL (70-99) H Test 03/21/19 19:16 Glucose (Fingerstick) 151 mg/dL (70-99) H Current Medications: I have reviewed the current psychotropics carefully including drug interactions. Risk benefit ratio favors no change other than as noted in my dictated progress note. Diagnosis: Problems: (1) Anxiety disorder (2) Major depressive disorder, recurrent episode KADEN ROSSI MD Mar 21, 2019 20:38
[2019-03-21] MEDS: INSULIN GLARGINE SYRINGE. SQ SCH (20:50)
[2019-03-21] MEDS: BENZTROPINE MESYLATE 0.5 MG TABLET PEG SCH (20:52)
[2019-03-21] MEDS: rOPINIRole 1 MG TABLET. PEG SCH (20:52)
[2019-03-21] MEDS: ATORVASTATIN CALCIUM 20 MG TABLET PEG SCH (20:52)
[2019-03-21] MEDS: MELATONIN 3 MG TABLET PEG SCH (20:52)
[2019-03-21] MEDS: MIRTAZAPINE ODT 30 MG TAB.RAPDIS. PEG SCH (20:52)
[2019-03-21] MEDS: traMADol 50 MG TABLET PEG PRN (20:53)
[2019-03-22 05:57] VITALS: BP 166/89
[2019-03-22] MEDS: LEVOTHYROXINE 125 MCG TABLET PEG SCH (06:03)
[2019-03-22] MEDS: CETIRIZINE 5 MG/5 ML ORAL SOLUTION. PEG SCH (09:00)
[2019-03-22] MEDS: GABAPENTIN 250 MG/5 ML ORAL SOLUTION. PO SCH ×2 (09:34→20:56)
[2019-03-22] MEDS: POTASSIUM BICARB 20 MEQ EFFERVESCENT TABLET. PEG SCH (09:34)
[2019-03-22] MEDS: ARIPiprazole 10 MG TABLET PO SCH (09:35)
[2019-03-22] MEDS: METOCLOPRAMIDE 5 MG TABLET PEG SCH ×3 (09:36→17:35)
[2019-03-22] MEDS: CHOLECALCIFEROL (VITAMIN D3) 1,000 UNIT TABLET PEG SCH (09:36)
[2019-03-22] MEDS: FAMOTIDINE 20 MG TABLET PEG SCH ×2 (09:37→17:35)
[2019-03-22] MEDS: metFORMIN 500 MG TABLET PO SCH ×2 (09:37→17:35)
[2019-03-22] MEDS: amLODIPine BESYLATE 5 MG TABLET PEG SCH (09:37)
[2019-03-22] MEDS: CLOTRIMAZOLE 1% TOPICAL CREAM 30GM TUBE. TP SCH ×2 (09:38→20:56)
[2019-03-22] MEDS: INSULIN LISPRO 300 UNITS/3 ML VIAL. SQ SCH ×3 (09:44→17:41)
[2019-03-22] MEDS: LORazepam INTENSOL 2 MG/ML BOTTLE SL PRN ×2 (09:53→17:35)
[2019-03-22 16:41] VITALS: BP 147/79
--- NOTE | 2019-03-22 20:38 | PDOC ---
Exam Note: Bradford Note: Please also refer to the separate dictated note~for this date of service dictated separately.~Patient seen individually. Discussed the patient with Nursing staff reviewed the chart.~Reviewed interim history and current functioning. Reviewed vital signs,~Labs/ Radiology~and current medications noted below. Continue current treatment with the changes noted in the dictated addendum note Assessment: Vital Signs/I&O: Vital Signs Date Time Temp Pulse Resp B/P (MAP) Pulse Ox O2 Delivery O2 Flow Rate FiO2 03/22/19 16:41 98.2 96 20 147/79 (101) 97 03/22/19 05:57 Room Air I & O 03/21/19 03/21/19 03/22/19 15:00 23:00 07:00 Intake Total 422 ml 357 ml Balance 422 ml 357 ml Labs: Laboratory Tests Test 03/22/19 07:17 03/22/19 13:00 03/22/19 16:49 03/22/19 19:12 Glucose (Fingerstick) 148 mg/dL (70-99) H 212 mg/dL (70-99) H 167 mg/dL (70-99) H 214 mg/dL (70-99) H Current Medications: I have reviewed the current psychotropics carefully including drug interactions. Risk benefit ratio favors no change other than as noted in my dictated progress note. Diagnosis: Problems: (1) Anxiety disorder (2) Major depressive disorder, recurrent episode KADEN ROSSI MD Mar 22, 2019 20:38
[2019-03-22] MEDS: ATORVASTATIN CALCIUM 20 MG TABLET PEG SCH (20:55)
[2019-03-22] MEDS: MIRTAZAPINE ODT 30 MG TAB.RAPDIS. PEG SCH (20:55)
[2019-03-22] MEDS: MELATONIN 3 MG TABLET PEG SCH (20:55)
[2019-03-22] MEDS: BENZTROPINE MESYLATE 0.5 MG TABLET PEG SCH (20:55)
[2019-03-22] MEDS: rOPINIRole 1 MG TABLET. PEG SCH (20:55)
[2019-03-22] MEDS: INSULIN GLARGINE SYRINGE. SQ SCH (21:00)
[2019-03-23] MEDS: LEVOTHYROXINE 125 MCG TABLET PEG SCH (06:30)
[2019-03-23 07:00] VITALS: BP 118/79
[2019-03-23] MEDS: ARIPiprazole 15 MG TABLET PO SCH (09:00)
[2019-03-23] MEDS: POTASSIUM BICARB 20 MEQ EFFERVESCENT TABLET. PEG SCH (09:17)
[2019-03-23] MEDS: metFORMIN 500 MG TABLET PO SCH ×2 (09:17→17:29)
[2019-03-23] MEDS: amLODIPine BESYLATE 5 MG TABLET PEG SCH (09:17)
[2019-03-23] MEDS: CHOLECALCIFEROL (VITAMIN D3) 1,000 UNIT TABLET PEG SCH (09:18)
[2019-03-23] MEDS: FAMOTIDINE 20 MG TABLET PEG SCH ×2 (09:18→17:30)
[2019-03-23] MEDS: METOCLOPRAMIDE 5 MG TABLET PEG SCH ×3 (09:18→17:29)
[2019-03-23] MEDS: GABAPENTIN 250 MG/5 ML ORAL SOLUTION. PO SCH ×2 (09:18→20:19)
[2019-03-23] MEDS: CLOTRIMAZOLE 1% TOPICAL CREAM 30GM TUBE. TP SCH ×2 (09:19→20:18)
[2019-03-23] MEDS: CETIRIZINE 5 MG/5 ML ORAL SOLUTION. PEG SCH (09:19)
[2019-03-23] MEDS: INSULIN LISPRO 300 UNITS/3 ML VIAL. SQ SCH ×3 (09:20→17:32)
[2019-03-23] MEDS: LORazepam INTENSOL 2 MG/ML BOTTLE SL PRN ×2 (09:39→16:02)
--- NOTE | 2019-03-23 13:01 | PN ---
DATE: 03/21/2019 PSYCHIATRIC PROGRESS NOTE This late entry 03/21/2019 covers elements not covered in my initial note. SUBJECTIVE: I met with the patient in the evening of 03/21/2019. Per JOSETTE Shah, the patient slept 8 hours previous night. She continues to be depressed, states she still hears voices, mainly in her left ear, which is the deaf ear and these are command hallucinations telling her to hurt herself, but she does not follow through with this. She received Ativan at 0900, 12:55 p.m., which seemed to help. REVIEW OF SYSTEMS: Ambulation impaired. No CV, , pulmonary, eye system symptoms on review. MENTAL STATUS EXAM: The patient is reasonably oriented. Speech has some latency, coherent. Abstraction fair, computation impaired, language function intact, attention span short. Mood and affect remain somewhat anxious, labile, but improved. LABORATORY DATA: Reviewed. IMPRESSION: Major depressive disorder with psychotic features, obsessive-compulsive disorder; anxiety disorder, unspecified; rule out bipolar disorder with psychotic features. Rest unchanged. PLAN: Continue current psychotropics. Luvox will be increased gradually to 50 mg a day on 03/23/2019 and we will increase Abilify to 15 mg a day on the as well. Maintain Remeron, melatonin and Cogentin for now. Consider mood stabilizer depending on how she does. MAN Lennox ROSSI MD DR: LAWSON/dimitri JOB#: [id number] / [id number]
[2019-03-23 16:00] VITALS: BP 136/85
--- NOTE | 2019-03-23 19:22 | PN ---
DATE: 03/22/2019 PSYCHIATRIC PROGRESS NOTE This late entry 03/22/2019 covers elements not covered in my initial note. SUBJECTIVE: I met with the patient evening of 03/22/2019 and staffed at a treatment team meeting with the entire team in the morning. The patient slept 7 hours previous night. Subjectively, she states that depression is better, but still has auditory hallucinations that are command hallucinations through the left ear telling her to hurt herself, but she is resisting them. She remains on one-on-one status. REVIEW OF SYSTEMS: Ambulation impaired. No CV, , pulmonary, eye system symptoms on review. MENTAL STATUS EXAM: Reasonably oriented. Speech has some latency, coherent. Abstraction fair, computation impaired, language function intact. Mood and affect is still depressed, anxious, psychotic, but improving. LABORATORY DATA: Reviewed. IMPRESSION: Major depressive disorder with psychotic features, rule out bipolar disorder, mixed with psychotic features; borderline personality disorder. Rest unchanged. PLAN: Continue current psychotropics. Increase Abilify along with Luvox gradually. Rest unchanged for now. Consider mood stabilizer. MAN Lennox ROSSI MD DR: LAWSON/dimitri JOB#: [id number] / [id number]
[2019-03-23] MEDS: MELATONIN 3 MG TABLET PEG SCH (20:18)
[2019-03-23] MEDS: BENZTROPINE MESYLATE 0.5 MG TABLET PEG SCH (20:18)
[2019-03-23] MEDS: ATORVASTATIN CALCIUM 20 MG TABLET PEG SCH (20:18)
[2019-03-23] MEDS: rOPINIRole 1 MG TABLET. PEG SCH (20:19)
[2019-03-23] MEDS: MIRTAZAPINE ODT 30 MG TAB.RAPDIS. PEG SCH (20:19)
[2019-03-23] MEDS: INSULIN GLARGINE SYRINGE. SQ SCH (20:47)
--- NOTE | 2019-03-23 20:52 | PDOC ---
Exam Note: Bradford Note: Please also refer to the separate dictated note~for this date of service dictated separately.~Patient seen individually. Discussed the patient with Nursing staff reviewed the chart.~Reviewed interim history and current functioning. Reviewed vital signs,~Labs/ Radiology~and current medications noted below. Continue current treatment with the changes noted in the dictated addendum note Assessment: Vital Signs/I&O: Vital Signs Date Time Temp Pulse Resp B/P (MAP) Pulse Ox O2 Delivery O2 Flow Rate FiO2 03/23/19 16:00 98.3 102 16 136/85 (102) 97 03/22/19 05:57 Room Air I & O 03/22/19 03/22/19 03/23/19 15:00 23:00 07:00 Intake Total 523 ml 342 ml 240 ml Balance 523 ml 342 ml 240 ml Labs: Laboratory Tests Test 03/23/19 07:27 03/23/19 12:10 03/23/19 17:24 03/23/19 19:27 Glucose (Fingerstick) 170 mg/dL (70-99) H 183 mg/dL (70-99) H 174 mg/dL (70-99) H 192 mg/dL (70-99) H Current Medications: Meds: Current Medications Medications (Trade) Dose Ordered Sig/Earnest Route PRN Reason Start Time Stop Time Status Last Admin Dose Admin Fluvoxamine Maleate (Luvox) 50 mg DAILY PO 03/23/19 09:00 03/23/19 09:18 Aripiprazole (Abilify) 15 mg DAILY PO 03/23/19 09:00 03/24/19 09:01 03/23/19 09:00 I have reviewed the current psychotropics carefully including drug interactions. Risk benefit ratio favors no change other than as noted in my dictated progress note. Diagnosis: Problems: (1) Anxiety disorder (2) Major depressive disorder, recurrent episode KADEN ROSSI MD Mar 23, 2019 20:52
[2019-03-24 05:14] VITALS: BP 154/85
[2019-03-24] MEDS: LEVOTHYROXINE 125 MCG TABLET PEG SCH (05:39)
[2019-03-24] MEDS: CLOTRIMAZOLE 1% TOPICAL CREAM 30GM TUBE. TP SCH ×2 (09:00→20:50)
[2019-03-24] MEDS: ARIPiprazole 15 MG TABLET PO SCH (09:07)
[2019-03-24] MEDS: FAMOTIDINE 20 MG TABLET PEG SCH ×2 (09:08→16:46)
[2019-03-24] MEDS: amLODIPine BESYLATE 5 MG TABLET PEG SCH (09:08)
[2019-03-24] MEDS: metFORMIN 500 MG TABLET PO SCH ×2 (09:08→16:47)
[2019-03-24] MEDS: CHOLECALCIFEROL (VITAMIN D3) 1,000 UNIT TABLET PEG SCH (09:08)
[2019-03-24] MEDS: POTASSIUM BICARB 20 MEQ EFFERVESCENT TABLET. PEG SCH (09:08)
[2019-03-24] MEDS: METOCLOPRAMIDE 5 MG TABLET PEG SCH ×3 (09:08→16:46)
[2019-03-24] MEDS: CETIRIZINE 5 MG/5 ML ORAL SOLUTION. PEG SCH (09:11)
[2019-03-24] MEDS: GABAPENTIN 250 MG/5 ML ORAL SOLUTION. PO SCH ×2 (09:16→20:45)
[2019-03-24] MEDS: INSULIN LISPRO 300 UNITS/3 ML VIAL. SQ SCH ×3 (09:18→17:21)
[2019-03-24] MEDS: LORazepam INTENSOL 2 MG/ML BOTTLE SL PRN (12:23)
[2019-03-24 15:56] VITALS: BP 163/93
[2019-03-24] MEDS: traMADol 50 MG TABLET PEG PRN (16:47)
--- NOTE | 2019-03-24 20:41 | PDOC ---
Exam Note: Bradford Note: Please also refer to the separate dictated note~for this date of service dictated separately.~Patient seen individually. Discussed the patient with Nursing staff reviewed the chart.~Reviewed interim history and current functioning. Reviewed vital signs,~Labs/ Radiology~and current medications noted below. Continue current treatment with the changes noted in the dictated addendum note Assessment: Vital Signs/I&O: Vital Signs Date Time Temp Pulse Resp B/P (MAP) Pulse Ox O2 Delivery O2 Flow Rate FiO2 03/24/19 18:01 97 03/24/19 15:56 98.3 94 20 163/93 (116) 03/24/19 05:14 Room Air I & O 03/23/19 03/23/19 03/24/19 15:00 23:00 07:00 Intake Total 0 ml 120 ml Balance 0 ml 120 ml Labs: Laboratory Tests Test 03/24/19 07:23 03/24/19 11:58 03/24/19 17:12 03/24/19 19:23 Glucose (Fingerstick) 180 mg/dL (70-99) H 283 mg/dL (70-99) H 145 mg/dL (70-99) H 240 mg/dL (70-99) H Current Medications: I have reviewed the current psychotropics carefully including drug interactions. Risk benefit ratio favors no change other than as noted in my dictated progress note. Diagnosis: Problems: (1) Anxiety disorder (2) Major depressive disorder, recurrent episode KADEN ROSSI MD Mar 24, 2019 20:41
[2019-03-24] MEDS: rOPINIRole 1 MG TABLET. PEG SCH (20:45)
[2019-03-24] MEDS: ATORVASTATIN CALCIUM 20 MG TABLET PEG SCH (20:45)
[2019-03-24] MEDS: MELATONIN 3 MG TABLET PEG SCH (20:45)
[2019-03-24] MEDS: traZODone 50 MG TABLET. PO SCH (20:46)
[2019-03-24] MEDS: INSULIN GLARGINE SYRINGE. SQ SCH (20:50)
[2019-03-24] MEDS ORDERED: traZODone 50 MG TABLET. PO PRN (21:00)
[2019-03-25] MEDS: LEVOTHYROXINE 125 MCG TABLET PEG SCH (05:47)
[2019-03-25 06:28] VITALS: BP 132/84
[2019-03-25] MEDS: INSULIN LISPRO 300 UNITS/3 ML VIAL. SQ SCH ×3 (08:28→17:12)
[2019-03-25] MEDS: FAMOTIDINE 20 MG TABLET PEG SCH ×2 (08:29→17:10)
[2019-03-25] MEDS: METOCLOPRAMIDE 5 MG TABLET PEG SCH ×3 (08:29→17:10)
[2019-03-25] MEDS: metFORMIN 500 MG TABLET PO SCH ×2 (08:29→17:10)
[2019-03-25] MEDS: CHOLECALCIFEROL (VITAMIN D3) 1,000 UNIT TABLET PEG SCH (08:30)
[2019-03-25] MEDS: amLODIPine BESYLATE 5 MG TABLET PEG SCH (08:30)
[2019-03-25] MEDS: POTASSIUM BICARB 20 MEQ EFFERVESCENT TABLET. PEG SCH (08:30)
[2019-03-25] MEDS: CETIRIZINE 5 MG/5 ML ORAL SOLUTION. PEG SCH (08:31)
[2019-03-25] MEDS: GABAPENTIN 250 MG/5 ML ORAL SOLUTION. PO SCH ×2 (08:33→22:00)
[2019-03-25] MEDS: buPROPion 100 MG TABLET PO SCH ×3 (08:47→22:00)
[2019-03-25] MEDS ORDERED: ARIPiprazole 10 MG TABLET PO SCH (09:00)
[2019-03-25] MEDS: CLOTRIMAZOLE 1% TOPICAL CREAM 30GM TUBE. TP SCH ×2 (09:00→21:59)
[2019-03-25] MEDS ORDERED: buPROPion XL 150 MG TAB.ER.24H PO SCH (09:00)
[2019-03-25] MEDS: LORazepam INTENSOL 2 MG/ML BOTTLE SL PRN (09:06)
--- NOTE | 2019-03-25 15:40 | PN ---
DATE: 03/23/2019 PSYCHIATRIC PROGRESS NOTE This late entry 03/23/2019 covers elements not covered in my initial note. SUBJECTIVE: I met with the patient at length in the evening of 03/23/2019. Per JOSETTE Rolon, patient slept 6-1/4 hours previous night. She has got her glasses back. She signed a safety contract before getting her glasses back and her walker back. Denies active suicidal ideation. She talked at length about seeing a dark haired gentleman in a suit who gives her command hallucinations through her left ear and this person told her to strangle herself when she did on the unit and then take the spoon to cut her wrist and she was just responding to the request. She received Ativan at 9:30 a.m. and 1600. REVIEW OF SYSTEMS: Ambulation impaired, in wheelchair. No CV, , pulmonary, eye system symptoms on review. MENTAL STATUS EXAM: Reasonably oriented. Speech has some latency, coherent. Abstraction fair, computation impaired, language function intact, attention span short. Mood and affect remain somewhat anxious, labile. She was still questioning why she should not respond to the command hallucinations and we addressed this. LABORATORY DATA: Reviewed. IMPRESSION: Major depressive disorder with psychotic features; anxiety disorder, unspecified; obsessive-compulsive disorder, rule out bipolar disorder, unspecified. The patient is on PEG tube feeding. PLAN: Increase Abilify to 15 mg a day on 03/23/2019 and 2 days later to 20 mg a day. Continue Luvox, Cogentin, but we may stop the Cogentin in due course and maintain Remeron, melatonin, Ativan p.r.n. MAN Lennox ROSSI MD DR: LAWSON/dimitri JOB#: [id number] / [id number]
[2019-03-25 16:07] VITALS: BP 122/69
--- NOTE | 2019-03-25 20:31 | PDOC ---
Exam Note: Bradford Note: Please also refer to the separate dictated note~for this date of service dictated separately.~Patient seen individually. Discussed the patient with Nursing staff reviewed the chart.~Reviewed interim history and current functioning. Reviewed vital signs,~Labs/ Radiology~and current medications noted below. Continue current treatment with the changes noted in the dictated addendum note Assessment: Vital Signs/I&O: Vital Signs Date Time Temp Pulse Resp B/P (MAP) Pulse Ox O2 Delivery O2 Flow Rate FiO2 03/25/19 16:07 97.8 81 18 122/69 (86) 96 03/24/19 05:14 Room Air I & O 03/24/19 03/24/19 03/25/19 15:00 23:00 07:00 Intake Total 0 ml 160 ml Balance 0 ml 160 ml Labs: Laboratory Tests Test 03/25/19 07:29 03/25/19 12:01 03/25/19 17:08 03/25/19 19:20 Glucose (Fingerstick) 184 mg/dL (70-99) H 250 mg/dL (70-99) H 228 mg/dL (70-99) H 197 mg/dL (70-99) H Current Medications: Meds: Current Medications Medications (Trade) Dose Ordered Sig/Earnest Route PRN Reason Start Time Stop Time Status Last Admin Dose Admin Aripiprazole (Abilify) 20 mg DAILY PO 03/25/19 09:00 03/25/19 08:34 Trazodone HCl (Desyrel) 50 mg QHS PO 03/24/19 21:00 03/24/19 20:46 Bupropion HCl (Wellbutrin) 50 mg [id number] PO 03/25/19 09:00 03/25/19 13:22 I have reviewed the current psychotropics carefully including drug interactions. Risk benefit ratio favors no change other than as noted in my dictated progress note. Diagnosis: Problems: (1) Anxiety disorder (2) Major depressive disorder, recurrent episode KADEN ROSSI MD Mar 25, 2019 20:31
[2019-03-25] MEDS: ATORVASTATIN CALCIUM 20 MG TABLET PEG SCH (22:01)
[2019-03-25] MEDS: rOPINIRole 1 MG TABLET. PEG SCH (22:01)
[2019-03-25] MEDS: traZODone 50 MG TABLET. PO SCH (22:01)
[2019-03-25] MEDS: MELATONIN 3 MG TABLET PEG SCH (22:01)
[2019-03-25] MEDS: traMADol 50 MG TABLET PEG PRN (22:15)
[2019-03-25] MEDS: INSULIN GLARGINE SYRINGE. SQ SCH (22:15)
--- NOTE | 2019-03-26 00:06 | PN ---
DATE: 03/24/2019 PSYCHIATRIC PROGRESS NOTE This late entry of 03/24 covers elements not covered in my initial note. SUBJECTIVE: I met with the patient on the evening of 03/24. The patient slept 6-3/4 hours the previous night. She continues to state she sees a man dressed in a black suit who is telling her to hurt herself at times, but she does not follow through with this. She was making sarcastic statements towards nursing staff, tearful at times. 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 She was talking about the questionable auditory and visual hallucinations as perhaps the man who was the love of her life and who on her 's birthday. It is difficult to follow through with some of her conversation at times. Apparently, he this year. REVIEW OF SYSTEMS: Ambulation impaired, in wheelchair. No CV, , pulmonary, eye system symptoms on review. MENTAL STATUS EXAMINATION: Reasonably oriented. Speech has some latency, coherent. Abstraction fair, computation impaired, language function intact, attention span short. Mood and affect remain somewhat anxious, labile; at times, depressed. We had a lengthy discussion about her psychosis and inability to control her response to this. LABORATORY DATA: Reviewed. IMPRESSION: Bipolar disorder, mixed with psychotic features; history of major depressive disorder with psychotic features. PLAN: Stop Cogentin 0.5 mg at bedtime, start Wellbutrin-XL 150 mg a day. Change Remeron to trazodone 50 mg at bedtime, may repeat x 1 for insomnia. Rest unchanged for now. Luvox has been increased for her OCD symptoms. Abilify, increasing to 20 mg a day on 03/25; melatonin 3 mg at bedtime. Consider adding a mood stabilizer depending on her progress. KADEN ROSSI MD DR: LAWSON/dimitri JOB#: [id number] / [id number]
[2019-03-26] MEDS ORDERED: traZODone 50 MG TABLET. PEG PRN (04:15)
[2019-03-26 05:45] VITALS: BP 127/78
[2019-03-26] MEDS: LEVOTHYROXINE 125 MCG TABLET PEG SCH (05:45)
[2019-03-26] MEDS: CHOLECALCIFEROL (VITAMIN D3) 1,000 UNIT TABLET PEG SCH (08:50)
[2019-03-26] MEDS: buPROPion 100 MG TABLET PEG SCH ×3 (08:50→21:10)
[2019-03-26] MEDS: FAMOTIDINE 20 MG TABLET PEG SCH ×2 (08:50→17:32)
[2019-03-26] MEDS: metFORMIN 500 MG TABLET PO SCH ×2 (08:50→17:32)
[2019-03-26] MEDS: METOCLOPRAMIDE 5 MG TABLET PEG SCH ×3 (08:50→17:32)
[2019-03-26] MEDS: POTASSIUM BICARB 20 MEQ EFFERVESCENT TABLET. PEG SCH (08:51)
[2019-03-26] MEDS: amLODIPine BESYLATE 5 MG TABLET PEG SCH (08:51)
[2019-03-26] MEDS: ARIPiprazole 10 MG TABLET PEG SCH (08:51)
[2019-03-26] MEDS: GABAPENTIN 250 MG/5 ML ORAL SOLUTION. PEG SCH ×2 (08:52→21:28)
[2019-03-26] MEDS: CETIRIZINE 5 MG/5 ML ORAL SOLUTION. PEG SCH (08:52)
[2019-03-26] MEDS: INSULIN LISPRO 300 UNITS/3 ML VIAL. SQ SCH ×3 (08:54→17:33)
[2019-03-26] MEDS: CLOTRIMAZOLE 1% TOPICAL CREAM 30GM TUBE. TP SCH ×2 (08:55→21:00)
[2019-03-26 15:37] VITALS: BP 133/63
--- NOTE | 2019-03-26 20:06 | PDOC ---
Exam Note: Bradford Note: Please also refer to the separate dictated note~for this date of service dictated separately.~Patient seen individually. Discussed the patient with Nursing staff reviewed the chart.~Reviewed interim history and current functioning. Reviewed vital signs,~Labs/ Radiology~and current medications noted below. Continue current treatment with the changes noted in the dictated addendum note Assessment: Vital Signs/I&O: Vital Signs Date Time Temp Pulse Resp B/P (MAP) Pulse Ox O2 Delivery O2 Flow Rate FiO2 03/26/19 15:37 98.2 100 20 133/63 (86) 99 03/26/19 05:45 Room Air I & O 03/25/19 03/25/19 03/26/19 15:00 23:00 07:00 Intake Total 0 ml 50 ml 240 ml Balance 0 ml 50 ml 240 ml Labs: Laboratory Tests Test 03/26/19 07:21 03/26/19 11:44 03/26/19 16:28 Glucose (Fingerstick) 173 mg/dL (70-99) H 282 mg/dL (70-99) H 236 mg/dL (70-99) H Current Medications: Meds: Current Medications Medications (Trade) Dose Ordered Sig/Earnest Route PRN Reason Start Time Stop Time Status Last Admin Dose Admin Aripiprazole (Abilify) 20 mg DAILY PEG 03/26/19 09:00 03/28/19 09:01 03/26/19 08:51 Bupropion HCl (Wellbutrin) 50 mg [id number] PEG 03/26/19 09:00 03/26/19 12:52 Fluvoxamine Maleate (Luvox) 50 mg DAILY PEG 03/26/19 09:00 03/26/19 08:49 Gabapentin (Neurontin Oral Soln) 500 mg BID PEG 03/26/19 09:00 03/26/19 08:52 I have reviewed the current psychotropics carefully including drug interactions. Risk benefit ratio favors no change other than as noted in my dictated progress note. Diagnosis: Problems: (1) Anxiety disorder (2) Major depressive disorder, recurrent episode KADEN ROSSI MD Mar 26, 2019 20:06
[2019-03-26] MEDS: MELATONIN 3 MG TABLET PEG SCH (21:09)
[2019-03-26] MEDS: ATORVASTATIN CALCIUM 20 MG TABLET PEG SCH (21:09)
[2019-03-26] MEDS: traZODone 50 MG TABLET. PEG SCH (21:09)
[2019-03-26] MEDS: rOPINIRole 1 MG TABLET. PEG SCH (21:10)
[2019-03-26] MEDS: INSULIN GLARGINE SYRINGE. SQ SCH (21:14)
[2019-03-26] MEDS: LORazepam INTENSOL 2 MG/ML BOTTLE SL PRN (21:21)
--- NOTE | 2019-03-27 00:59 | PN ---
DATE: 03/25/2019 PSYCHIATRIC PROGRESS NOTE This late entry 03/25/2019 covers elements not covered in my initial note. SUBJECTIVE: I met with the patient evening of 03/25/2019 at some length. The patient slept 7-1/2 hours previous night. She has been journaling to express her emotions and remains on one-on-one status. She still states she sees a man in black talking to her, but less frequently as compared to previously. She states he still tells her to hurt herself, but she is able to ignore him. REVIEW OF SYSTEMS: Ambulation impaired, in wheelchair. No CV, , PULMONARY, EYE system symptoms on review. MENTAL STATUS EXAM: Reasonably oriented. Speech is coherent, has some latency. Abstraction fair, computation impaired, language function intact, attention span short. Mood and affect still depressed, withdrawn. Remains psychotic, obsessive, but less so than before. LABORATORY DATA: Reviewed. IMPRESSION: Probable bipolar disorder, mixed with psychotic features; major depressive disorder with psychotic features. PLAN: The patient is currently on Wellbutrin 50 mg 3 times a day; trazodone 50 mg at bedtime, may repeat x 1; Luvox 50 mg a day; Abilify is being increased to 20 mg a day; Remeron 30 mg at bedtime; melatonin 3 mg at bedtime. Adjust further as clinically indicated. MAN Lennox ROSSI MD DR: LAWSON/dimitri JOB#: [id number] / [id number]
[2019-03-27] MEDS: LEVOTHYROXINE 125 MCG TABLET PEG SCH (05:34)
[2019-03-27 06:19] VITALS: BP 139/78
[2019-03-27 07:17] LABS: BASO % 1 % (0-3); EOS # 0.1 x10^3/uL (0.0-0.7); EOS % 3 % (0-3); HEMATOCRIT 40.7 % (36.0-47.0); HEMOGLOBIN 13.3 g/dL (12.0-15.5); LYMPH # 0.9 x10^3/uL (1.0-4.8); LYMPH % 22 % (24-48); MEAN CORPUSCULAR HEMOGLOBIN 31 pg (25-35); MEAN CORPUSCULAR HGB CONC 33 g/dL (31-37); MEAN CORPUSCULAR VOLUME 95 fL (79-100); MONO # 0.4 x10^3/uL (0.0-1.1); MONO % 9 % (0-9); NEUT # 2.8 x10^3uL (1.8-7.7); NEUT % 66 % (31-73); PLATELET COUNT 189 x10^3/uL (140-400); RED BLOOD COUNT 4.27 x10^6/uL (3.50-5.40); RED CELL DISTRIBUTION WIDTH 14.3 % (11.5-14.5); WHITE BLOOD COUNT 4.3 x10^3/uL (4.0-11.0)
[2019-03-27 07:28] LABS: ALBUMIN 3.1 g/dL (3.4-5.0); ALBUMIN/GLOBULIN RATIO 0.8 (1.0-1.7); CALCIUM 8.9 mg/dL (8.5-10.1); GFR 56.4; POTASSIUM 3.9 mmol/L (3.5-5.1); TOTAL BILIRUBIN 0.9 mg/dL (0.2-1.0); TOTAL PROTEIN 7.1 g/dL (6.4-8.2)
[2019-03-27] MEDS: metFORMIN 500 MG TABLET PO SCH ×2 (09:36→17:20)
[2019-03-27] MEDS: FAMOTIDINE 20 MG TABLET PEG SCH ×2 (09:36→17:20)
[2019-03-27] MEDS: amLODIPine BESYLATE 5 MG TABLET PEG SCH (09:36)
[2019-03-27] MEDS: METOCLOPRAMIDE 5 MG TABLET PEG SCH ×3 (09:36→17:20)
[2019-03-27] MEDS: buPROPion 100 MG TABLET PEG SCH ×3 (09:36→20:28)
[2019-03-27] MEDS: CHOLECALCIFEROL (VITAMIN D3) 1,000 UNIT TABLET PEG SCH (09:37)
[2019-03-27] MEDS: ARIPiprazole 10 MG TABLET PEG SCH (09:37)
[2019-03-27] MEDS: POTASSIUM BICARB 20 MEQ EFFERVESCENT TABLET. PEG SCH (09:38)
[2019-03-27] MEDS: CETIRIZINE 5 MG/5 ML ORAL SOLUTION. PEG SCH (09:39)
[2019-03-27] MEDS: CLOTRIMAZOLE 1% TOPICAL CREAM 30GM TUBE. TP SCH ×2 (09:39→20:31)
[2019-03-27] MEDS: GABAPENTIN 250 MG/5 ML ORAL SOLUTION. PEG SCH ×2 (09:45→20:28)
[2019-03-27] MEDS: INSULIN LISPRO 300 UNITS/3 ML VIAL. SQ SCH ×3 (09:47→17:26)
--- NOTE | 2019-03-27 14:53 | PN ---
DATE: 03/26/2019 PSYCHIATRIC PROGRESS NOTE This late entry 03/26/2019 covers elements not covered in my initial note. SUBJECTIVE: I met with the patient evening of 03/26/2019. Per JOSETTE Rolon, the patient slept 6-1/2 hours. She has had an improved mood. Tearful at one time. Ativan received at 12:45 p.m. She still states she sees a man dressed in black talking to her, telling her to hurt herself, but less intense and she is quite verbal about this as I met with her individually in the evening and also talked about seeing a mouse. REVIEW OF SYSTEMS: Ambulation impaired, in wheelchair. No CV, , pulmonary, eye system symptoms on review. MENTAL STATUS EXAM: Reasonably oriented. Speech is coherent, has some latency. Abstraction fair, computation impaired, language function intact, attention span short. Mood and affect showing some improvement. She has been journaling, which is therapeutic for her. LABORATORY DATA: Reviewed. IMPRESSION: Unchanged from initial note. PLAN: After she has been on Abilify 20 mg a day for 3 days, we will increase to 25 mg a day. Rest unchanged for now. Adjust the Luvox gradually. KDAEN ROSSI MD DR: LAWSON/dimitri JOB#: [id number] / [id number]
[2019-03-27 16:09] VITALS: BP 108/69
--- NOTE | 2019-03-27 19:53 | PDOC ---
Exam Note: Bradford Note: Please also refer to the separate dictated note~for this date of service dictated separately.~Patient seen individually. Discussed the patient with Nursing staff reviewed the chart.~Reviewed interim history and current functioning. Reviewed vital signs,~Labs/ Radiology~and current medications noted below. Continue current treatment with the changes noted in the dictated addendum note Assessment: Vital Signs/I&O: Vital Signs Date Time Temp Pulse Resp B/P (MAP) Pulse Ox O2 Delivery O2 Flow Rate FiO2 03/27/19 16:09 97.0 73 18 108/69 (82) 90 03/26/19 05:45 Room Air I & O 03/26/19 03/26/19 03/27/19 15:00 23:00 07:00 Intake Total 120 ml Balance 120 ml Labs: Laboratory Tests Test 03/27/19 06:37 03/27/19 07:38 03/27/19 11:57 03/27/19 17:24 White Blood Count 4.3 x10^3/uL (4.0-11.0) Red Blood Count 4.27 x10^6/uL (3.50-5.40) Hemoglobin 13.3 g/dL (12.0-15.5) Hematocrit 40.7 % (36.0-47.0) Mean Corpuscular Volume 95 fL (79-100) Mean Corpuscular Hemoglobin 31 pg (25-35) Mean Corpuscular Hemoglobin Concent 33 g/dL (31-37) Red Cell Distribution Width 14.3 % (11.5-14.5) Platelet Count 189 x10^3/uL (140-400) Neutrophils (%) (Auto) 66 % (31-73) Lymphocytes (%) (Auto) 22 % (24-48) L Monocytes (%) (Auto) 9 % (0-9) Eosinophils (%) (Auto) 3 % (0-3) Basophils (%) (Auto) 1 % (0-3) Neutrophils # (Auto) 2.8 x10^3uL (1.8-7.7) Lymphocytes # (Auto) 0.9 x10^3/uL (1.0-4.8) L Monocytes # (Auto) 0.4 x10^3/uL (0.0-1.1) Eosinophils # (Auto) 0.1 x10^3/uL (0.0-0.7) Basophils # (Auto) 0.0 x10^3/uL (0.0-0.2) Sodium Level 144 mmol/L (136-145) Potassium Level 3.9 mmol/L (3.5-5.1) Chloride Level 105 mmol/L (98-107) Carbon Dioxide Level 30 mmol/L (21-32) Anion Gap 9 (6-14) Blood Urea Nitrogen 22 mg/dL (7-20) H Creatinine 1.0 mg/dL (0.6-1.0) Estimated GFR (Cockcroft-Gault) 56.4 BUN/Creatinine Ratio 22 (6-20) H Glucose Level 220 mg/dL (70-99) H Calcium Level 8.9 mg/dL (8.5-10.1) Total Bilirubin 0.9 mg/dL (0.2-1.0) Aspartate Amino Transferase (AST) 16 U/L (15-37) Alanine Aminotransferase (ALT) 12 U/L (14-59) L Alkaline Phosphatase 79 U/L (46-116) Total Protein 7.1 g/dL (6.4-8.2) Albumin 3.1 g/dL (3.4-5.0) L Albumin/Globulin Ratio 0.8 (1.0-1.7) L Glucose (Fingerstick) 233 mg/dL (70-99) H 287 mg/dL (70-99) H 135 mg/dL (70-99) H Test 03/27/19 19:15 Glucose (Fingerstick) 226 mg/dL (70-99) H Current Medications: Meds: Current Medications Medications (Trade) Dose Ordered Sig/Earnest Route PRN Reason Start Time Stop Time Status Last Admin Dose Admin Trazodone HCl (Desyrel) 50 mg QHS PEG 03/26/19 21:00 03/26/19 21:09 I have reviewed the current psychotropics carefully including drug interactions. Risk benefit ratio favors no change other than as noted in my dictated progress note. Diagnosis: Problems: (1) Anxiety disorder (2) Major depressive disorder, recurrent episode KADEN ROSSI MD Mar 27, 2019 19:53
[2019-03-27] MEDS: rOPINIRole 1 MG TABLET. PEG SCH (20:27)
[2019-03-27] MEDS: MELATONIN 3 MG TABLET PEG SCH (20:27)
[2019-03-27] MEDS: ATORVASTATIN CALCIUM 20 MG TABLET PEG SCH (20:28)
[2019-03-27] MEDS: traZODone 50 MG TABLET. PEG SCH (20:28)
[2019-03-27] MEDS: LORazepam INTENSOL 2 MG/ML BOTTLE SL PRN (20:32)
[2019-03-27] MEDS: INSULIN GLARGINE SYRINGE. SQ SCH (20:55)
[2019-03-28] MEDS: LORazepam INTENSOL 2 MG/ML BOTTLE SL PRN (04:45)
[2019-03-28] MEDS: LEVOTHYROXINE 125 MCG TABLET PEG SCH (05:03)
[2019-03-28 06:08] VITALS: BP 143/86
[2019-03-28] MEDS: METOCLOPRAMIDE 5 MG TABLET PEG SCH ×3 (08:55→16:34)
[2019-03-28] MEDS: FAMOTIDINE 20 MG TABLET PEG SCH ×2 (08:55→16:34)
[2019-03-28] MEDS: ARIPiprazole 10 MG TABLET PEG SCH (08:56)
[2019-03-28] MEDS: metFORMIN 500 MG TABLET PO SCH ×2 (08:56→16:35)
[2019-03-28] MEDS: FUROSEMIDE 40 MG TABLET PEG SCH ×2 (08:57→14:44)
[2019-03-28] MEDS: GABAPENTIN 250 MG/5 ML ORAL SOLUTION. PEG SCH ×2 (08:57→20:34)
[2019-03-28] MEDS: amLODIPine BESYLATE 5 MG TABLET PEG SCH (08:57)
[2019-03-28] MEDS: POTASSIUM BICARB 20 MEQ EFFERVESCENT TABLET. PEG SCH (08:58)
[2019-03-28] MEDS: buPROPion 100 MG TABLET PEG SCH ×3 (08:58→20:33)
[2019-03-28] MEDS: CLOTRIMAZOLE 1% TOPICAL CREAM 30GM TUBE. TP SCH ×2 (08:58→20:34)
[2019-03-28] MEDS: CETIRIZINE 5 MG/5 ML ORAL SOLUTION. PEG SCH (08:58)
[2019-03-28] MEDS: CHOLECALCIFEROL (VITAMIN D3) 1,000 UNIT TABLET PEG SCH (08:58)
[2019-03-28] MEDS: INSULIN LISPRO 300 UNITS/3 ML VIAL. SQ SCH ×3 (09:27→16:30)
[2019-03-28 16:28] VITALS: BP 142/77
--- NOTE | 2019-03-28 19:52 | PDOC ---
Exam Note: Bradford Note: Please also refer to the separate dictated note~for this date of service dictated separately.~Patient seen individually. Discussed the patient with Nursing staff reviewed the chart.~Reviewed interim history and current functioning. Reviewed vital signs,~Labs/ Radiology~and current medications noted below. Continue current treatment with the changes noted in the dictated addendum note Assessment: Vital Signs/I&O: Vital Signs Date Time Temp Pulse Resp B/P (MAP) Pulse Ox O2 Delivery O2 Flow Rate FiO2 03/28/19 16:28 98.3 82 16 142/77 (98) 95 03/26/19 05:45 Room Air I & O 03/27/19 03/27/19 03/28/19 15:00 23:00 07:00 Intake Total 593 ml 513 ml Balance 593 ml 513 ml Labs: Laboratory Tests Test 03/28/19 08:07 03/28/19 12:02 03/28/19 16:33 03/28/19 19:03 Glucose (Fingerstick) 205 mg/dL (70-99) H 272 mg/dL (70-99) H 215 mg/dL (70-99) H 310 mg/dL (70-99) H Current Medications: Meds: Current Medications Medications (Trade) Dose Ordered Sig/Earnest Route PRN Reason Start Time Stop Time Status Last Admin Dose Admin Furosemide (Lasix) 40 mg [id number] PEG 03/28/19 09:00 03/28/19 14:44 I have reviewed the current psychotropics carefully including drug interactions. Risk benefit ratio favors no change other than as noted in my dictated progress note. Diagnosis: Problems: (1) Anxiety disorder (2) Major depressive disorder, recurrent episode KADEN ROSSI MD Mar 28, 2019 19:52
[2019-03-28] MEDS: VALPROATE ACID 250 MG/5 ML ORAL SOLUTION PEG SCH (20:33)
[2019-03-28] MEDS: rOPINIRole 1 MG TABLET. PEG SCH (20:33)
[2019-03-28] MEDS: traZODone 50 MG TABLET. PEG SCH (20:34)
[2019-03-28] MEDS: MELATONIN 3 MG TABLET PEG SCH (20:34)
[2019-03-28] MEDS: ATORVASTATIN CALCIUM 20 MG TABLET PEG SCH (20:34)
[2019-03-28] MEDS: INSULIN GLARGINE SYRINGE. SQ SCH (20:40)
[2019-03-28] MEDS ORDERED: DIVALPROEX 125 MG CAP.SPRINK PO SCH (21:00)
--- NOTE | 2019-03-29 01:31 | PN ---
DATE: 03/27/2019 PSYCHIATRIC PROGRESS NOTE. This late entry of 03/27/2019 covers the elements not covered in my initial note. SUBJECTIVE: I met with the patient in the evening. Per JOSETTE Rhodes, the patient slept 6-1/2 hours previous night. She remains on one-on-one status. States she still sees a man and a mouse and they are telling her to do things, but she is not reacting to them. She states she wants to be home with her , frustrated about being here, has difficulty conceptualizing how her ongoing psychiatric symptoms make it where she needs to be inpatient until she is stabilizes secondary to the command hallucinations asking her to kill herself. REVIEW OF SYSTEMS: Ambulation impaired. No CV, , pulmonary, eye system symptoms on review. She is somewhat hard of hearing. MENTAL STATUS EXAM: Reasonably oriented. Speech is coherent, has some latency. Abstraction fair, computation impaired, language function intact. Mood and affect remain somewhat withdrawn, at times a little anxious. LABORATORY DATA: Reviewed. IMPRESSION: Unchanged from initial note. PLAN: We are gradually increasing the Abilify. Luvox has been adjusted. She remains on Wellbutrin. May consider a mood stabilizer and if psychotic symptoms persist, we may change the Abilify to Clozaril. KADEN ROSSI MD DR: LAWSON/dimitri JOB#: [id number] / [id number]
[2019-03-29] MEDS: LEVOTHYROXINE 125 MCG TABLET PEG SCH (05:28)
[2019-03-29 05:58] VITALS: BP 138/82
[2019-03-29] MEDS: CLOTRIMAZOLE 1% TOPICAL CREAM 30GM TUBE. TP SCH ×2 (08:51→20:59)
[2019-03-29] MEDS: VALPROATE ACID 250 MG/5 ML ORAL SOLUTION PEG SCH ×2 (08:52→20:58)
[2019-03-29] MEDS: ARIPiprazole 10 MG TABLET PEG SCH (08:53)
[2019-03-29] MEDS: buPROPion 100 MG TABLET PEG SCH ×3 (08:54→21:01)
[2019-03-29] MEDS: POTASSIUM BICARB 20 MEQ EFFERVESCENT TABLET. PEG SCH (08:55)
[2019-03-29] MEDS: amLODIPine BESYLATE 5 MG TABLET PEG SCH (08:56)
[2019-03-29] MEDS: METOCLOPRAMIDE 5 MG TABLET PEG SCH ×3 (08:57→16:32)
[2019-03-29] MEDS: metFORMIN 500 MG TABLET PO SCH ×2 (08:57→16:32)
[2019-03-29] MEDS: FUROSEMIDE 40 MG TABLET PEG SCH ×2 (08:58→13:50)
[2019-03-29] MEDS: CHOLECALCIFEROL (VITAMIN D3) 1,000 UNIT TABLET PEG SCH (08:58)
[2019-03-29] MEDS: FAMOTIDINE 20 MG TABLET PEG SCH ×2 (08:58→16:32)
[2019-03-29] MEDS: GABAPENTIN 250 MG/5 ML ORAL SOLUTION. PEG SCH ×2 (09:00→20:57)
[2019-03-29] MEDS: CETIRIZINE 5 MG/5 ML ORAL SOLUTION. PEG SCH (09:00)
[2019-03-29] MEDS: INSULIN LISPRO 300 UNITS/3 ML VIAL. SQ SCH ×3 (09:05→16:36)
[2019-03-29 16:02] VITALS: BP 137/86
--- NOTE | 2019-03-29 19:58 | PDOC ---
Exam Note: Bradford Note: Please also refer to the separate dictated note~for this date of service dictated separately.~Patient seen individually. Discussed the patient with Nursing staff reviewed the chart.~Reviewed interim history and current functioning. Reviewed vital signs,~Labs/ Radiology~and current medications noted below. Continue current treatment with the changes noted in the dictated addendum note Assessment: Vital Signs/I&O: Vital Signs Date Time Temp Pulse Resp B/P (MAP) Pulse Ox O2 Delivery O2 Flow Rate FiO2 03/29/19 16:02 97.8 98 20 137/86 (103) 95 03/26/19 05:45 Room Air I & O 03/28/19 03/28/19 03/29/19 15:00 23:00 07:00 Intake Total 604 ml 297 ml Balance 604 ml 297 ml Labs: Laboratory Tests Test 03/29/19 07:32 03/29/19 17:02 03/29/19 19:17 Glucose (Fingerstick) 156 mg/dL (70-99) H 173 mg/dL (70-99) H 176 mg/dL (70-99) H Current Medications: Meds: Current Medications Medications (Trade) Dose Ordered Sig/Earnest Route PRN Reason Start Time Stop Time Status Last Admin Dose Admin Aripiprazole (Abilify) 25 mg DAILY PEG 03/29/19 09:00 03/29/19 08:53 Valproic Acid (Depakene) 250 mg BID PEG 03/28/19 21:00 03/29/19 08:52 I have reviewed the current psychotropics carefully including drug interactions. Risk benefit ratio favors no change other than as noted in my dictated progress note. Diagnosis: Problems: (1) Anxiety disorder (2) Major depressive disorder, recurrent episode KADEN ROSSI MD Mar 29, 2019 19:58
[2019-03-29] MEDS: ATORVASTATIN CALCIUM 20 MG TABLET PEG SCH (20:57)
[2019-03-29] MEDS: MELATONIN 3 MG TABLET PEG SCH (20:57)
[2019-03-29] MEDS: INSULIN GLARGINE SYRINGE. SQ SCH (20:57)
[2019-03-29] MEDS: rOPINIRole 1 MG TABLET. PEG SCH (20:57)
[2019-03-29] MEDS: traZODone 50 MG TABLET. PEG SCH (20:57)
[2019-03-30 06:01] VITALS: BP 136/82
[2019-03-30] MEDS: LEVOTHYROXINE 125 MCG TABLET PEG SCH (06:17)
[2019-03-30 06:40] LABS: CREATININE 1.1 mg/dL (0.6-1.0); GFR 50.5; POTASSIUM 3.3 mmol/L (3.5-5.1)
[2019-03-30] MEDS: CLOTRIMAZOLE 1% TOPICAL CREAM 30GM TUBE. TP SCH ×2 (09:20→20:13)
[2019-03-30] MEDS: FUROSEMIDE 40 MG TABLET PEG SCH ×2 (09:21→12:15)
[2019-03-30] MEDS: VALPROATE ACID 250 MG/5 ML ORAL SOLUTION PEG SCH ×2 (09:21→20:12)
[2019-03-30] MEDS: buPROPion 100 MG TABLET PEG SCH ×3 (09:22→20:12)
[2019-03-30] MEDS: CHOLECALCIFEROL (VITAMIN D3) 1,000 UNIT TABLET PEG SCH (09:23)
[2019-03-30] MEDS: amLODIPine BESYLATE 5 MG TABLET PEG SCH (09:23)
[2019-03-30] MEDS: metFORMIN 500 MG TABLET PO SCH ×2 (09:23→16:36)
[2019-03-30] MEDS: POTASSIUM BICARB 20 MEQ EFFERVESCENT TABLET. PEG SCH (09:23)
[2019-03-30] MEDS: FAMOTIDINE 20 MG TABLET PEG SCH ×2 (09:23→16:36)
[2019-03-30] MEDS: METOCLOPRAMIDE 5 MG TABLET PEG SCH ×3 (09:24→16:36)
[2019-03-30] MEDS: ARIPiprazole 10 MG TABLET PEG SCH (09:24)
[2019-03-30] MEDS: CETIRIZINE 5 MG/5 ML ORAL SOLUTION. PEG SCH (09:25)
[2019-03-30] MEDS: GABAPENTIN 250 MG/5 ML ORAL SOLUTION. PEG SCH ×2 (09:25→20:13)
[2019-03-30] MEDS: INSULIN LISPRO 300 UNITS/3 ML VIAL. SQ SCH ×3 (09:27→16:43)
[2019-03-30 16:16] VITALS: BP 134/83
[2019-03-30] MEDS: LORazepam INTENSOL 2 MG/ML BOTTLE SL PRN (16:36)
[2019-03-30] MEDS: rOPINIRole 1 MG TABLET. PEG SCH (20:13)
[2019-03-30] MEDS: MELATONIN 3 MG TABLET PEG SCH (20:13)
[2019-03-30] MEDS: traZODone 50 MG TABLET. PEG SCH (20:13)
[2019-03-30] MEDS: ATORVASTATIN CALCIUM 20 MG TABLET PEG SCH (20:13)
[2019-03-30] MEDS: INSULIN GLARGINE SYRINGE. SQ SCH (20:17)
--- NOTE | 2019-03-30 20:33 | PDOC ---
Exam Note: [place] Note: Please also refer to the separate dictated note~for this date of service dictated separately.~Patient seen individually. Discussed the patient with Nursing staff reviewed the chart.~Reviewed interim history and current functioning. Reviewed vital signs,~Labs/ Radiology~and current medications noted below. Continue current treatment with the changes noted in the dictated addendum note Assessment: Vital Signs/I&O: Vital Signs Date Time Temp Pulse Resp B/P (MAP) Pulse Ox O2 Delivery O2 Flow Rate FiO2 03/30/19 16:16 98.5 93 18 134/83 (100) 97 Room Air I & O 03/29/19 03/29/19 03/30/19 15:00 23:00 07:00 Intake Total 772 ml 327 ml Balance 772 ml 327 ml Labs: Laboratory Tests Test 03/30/19 06:09 03/30/19 07:06 03/30/19 11:49 03/30/19 16:42 Sodium Level 143 mmol/L (136-145) Potassium Level 3.3 mmol/L (3.5-5.1) L Chloride Level 103 mmol/L (98-107) Carbon Dioxide Level 31 mmol/L (21-32) Anion Gap 9 (6-14) Blood Urea Nitrogen 22 mg/dL (7-20) H Creatinine 1.1 mg/dL (0.6-1.0) H Estimated GFR (Cockcroft-Gault) 50.5 Glucose Level 202 mg/dL (70-99) H Calcium Level 9.0 mg/dL (8.5-10.1) Glucose (Fingerstick) 216 mg/dL (70-99) H 211 mg/dL (70-99) H 179 mg/dL (70-99) H Test 03/30/19 19:12 Glucose (Fingerstick) 178 mg/dL (70-99) H Current Medications: I have reviewed the current psychotropics carefully including drug interactions. Risk benefit ratio favors no change other than as noted in my dictated progress note. Diagnosis: Problems: (1) Anxiety disorder (2) Major depressive disorder, recurrent episode KADEN ROSSI MD Mar 30, 2019 20:33
--- NOTE | 2019-03-30 23:38 | PN ---
DATE: 03/28/2019 PSYCHIATRIC PROGRESS NOTE This late entry 03/28/2019 covers the elements not covered in my initial note. SUBJECTIVE: I met with the patient in the evening. Per JOSETTE Shah, the patient slept 6 hours previous night. She relates in the past, she was on Wellbutrin and had mouth swelling, but seems to be tolerating it quite well at this time. She has been talking about seeing 25 people in the room, one group telling her to hang herself, second group telling her to garcia into the nursing station and take an overdose of medications, third group telling her to strangle herself, but she is not reacting to them. REVIEW OF SYSTEMS: Ambulation impaired, in wheelchair. No CV, , pulmonary, eye system symptoms on review. MENTAL STATUS EXAM: Reasonably oriented. Speech has some latency, coherent. Abstraction fair, computation impaired, language function intact, attention span short. Mood and affect remains labile. LABORATORY DATA: Reviewed. IMPRESSION: Bipolar disorder, mixed with psychotic features; schizoaffective disorder, bipolar type, mixed with psychotic features; anxiety disorder, unspecified personality disorder, unspecified. PLAN: Start Depakote liquid 250 mg twice a day as a mood stabilizer. CBC, CMP, valproic acid level, ammonia level in 3 days. Rest unchanged for now. MAN Lennox ROSSI MD DR: LAWSON/dimitri JOB#: [id number] / [id number]
[2019-03-31] MEDS: traMADol 50 MG TABLET PEG PRN ×2 (01:29→12:37)
--- NOTE | 2019-03-31 02:39 | PN ---
DATE: 03/29/2019 PSYCHIATRIC PROGRESS NOTE This late entry 03/29/2019 covers the elements not covered in my initial note. SUBJECTIVE: I met with the patient in the evening and staffed at a treatment team meeting with the entire team in the morning. The patient slept 7 hours previous night. Remains on one-on-one status. Meds are being given by PEG tube. She continues to have some auditory and visual hallucinations, but little improved. Also discussed with Rosana, social service staff at length after Rosana had one-on-one meeting with the patient. REVIEW OF SYSTEMS: Still positive for the hallucinations. Impaired ambulation. No CV, , pulmonary, eye system symptoms on review. MENTAL STATUS EXAM: Reasonably oriented. Speech is coherent, abstraction fair, computation impaired, language function intact. Mood and affect remain somewhat anxious, labile, but improved. LABORATORY DATA: Reviewed. IMPRESSION: Unchanged from initial note. PLAN: No change from initial note. KADEN ROSSI MD DR: LAWSON/dimitri JOB#: [id number] / [id number]
[2019-03-31 05:55] VITALS: BP 114/73
[2019-03-31] MEDS: LEVOTHYROXINE 125 MCG TABLET PEG SCH (06:07)
[2019-03-31] MEDS: INSULIN LISPRO 300 UNITS/3 ML VIAL. SQ SCH ×3 (08:45→17:26)
[2019-03-31] MEDS: CETIRIZINE 5 MG/5 ML ORAL SOLUTION. PEG SCH (08:48)
[2019-03-31] MEDS: buPROPion 100 MG TABLET PEG SCH ×3 (08:49→20:42)
[2019-03-31] MEDS: VALPROATE ACID 250 MG/5 ML ORAL SOLUTION PEG SCH ×2 (08:49→20:43)
[2019-03-31] MEDS: metFORMIN 500 MG TABLET PO SCH ×2 (08:50→17:32)
[2019-03-31] MEDS: CHOLECALCIFEROL (VITAMIN D3) 1,000 UNIT TABLET PEG SCH (08:52)
[2019-03-31] MEDS: amLODIPine BESYLATE 5 MG TABLET PEG SCH (08:52)
[2019-03-31] MEDS: ARIPiprazole 10 MG TABLET PEG SCH (08:52)
[2019-03-31] MEDS: POTASSIUM BICARB 20 MEQ EFFERVESCENT TABLET. PEG SCH ×2 (08:52→20:42)
[2019-03-31] MEDS: FAMOTIDINE 20 MG TABLET PEG SCH ×2 (08:53→17:28)
[2019-03-31] MEDS: FUROSEMIDE 40 MG TABLET PEG SCH ×2 (08:53→14:03)
[2019-03-31] MEDS: METOCLOPRAMIDE 5 MG TABLET PEG SCH ×3 (08:53→17:28)
[2019-03-31] MEDS: GABAPENTIN 250 MG/5 ML ORAL SOLUTION. PEG SCH ×2 (08:55→20:43)
[2019-03-31] MEDS: CLOTRIMAZOLE 1% TOPICAL CREAM 30GM TUBE. TP SCH ×2 (08:56→21:00)
[2019-03-31 15:55] VITALS: BP 139/76
[2019-03-31] MEDS ORDERED: POTASSIUM BICARB 20 MEQ EFFERVESCENT TABLET. PEG ONE (17:30)
--- NOTE | 2019-03-31 20:36 | PDOC ---
Exam Note: [place] Note: Please also refer to the separate dictated note~for this date of service dictated separately.~Patient seen individually. Discussed the patient with Nursing staff reviewed the chart.~Reviewed interim history and current functioning. Reviewed vital signs,~Labs/ Radiology~and current medications noted below. Continue current treatment with the changes noted in the dictated addendum note Assessment: Vital Signs/I&O: Vital Signs Date Time Temp Pulse Resp B/P (MAP) Pulse Ox O2 Delivery O2 Flow Rate FiO2 03/31/19 15:55 98.2 91 16 139/76 (97) 98 03/31/19 14:19 Room Air I & O 03/30/19 03/30/19 03/31/19 15:00 23:00 07:00 Intake Total 772 ml 60 ml Balance 772 ml 60 ml Labs: Laboratory Tests Test 03/31/19 07:55 03/31/19 12:07 03/31/19 16:49 03/31/19 19:06 Glucose (Fingerstick) 190 mg/dL (70-99) H 190 mg/dL (70-99) H 184 mg/dL (70-99) H 161 mg/dL (70-99) H Current Medications: Meds: Current Medications Medications (Trade) Dose Ordered Sig/Earnest Route PRN Reason Start Time Stop Time Status Last Admin Dose Admin Potassium Bicarbonate (Potassium Effervescent Tablet) 40 meq 1X ONCE PEG 03/31/19 17:30 03/31/19 17:31 DC 03/31/19 17:32 I have reviewed the current psychotropics carefully including drug interactions. Risk benefit ratio favors no change other than as noted in my dictated progress note. Diagnosis: Problems: (1) Anxiety disorder (2) Major depressive disorder, recurrent episode KADEN ROSSI MD Mar 31, 2019 20:36
[2019-03-31] MEDS: ATORVASTATIN CALCIUM 20 MG TABLET PEG SCH (20:41)
[2019-03-31] MEDS: LORazepam INTENSOL 2 MG/ML BOTTLE SL PRN (20:41)
[2019-03-31] MEDS: rOPINIRole 1 MG TABLET. PEG SCH (20:42)
[2019-03-31] MEDS: traZODone 50 MG TABLET. PEG SCH (20:42)
[2019-03-31] MEDS: MELATONIN 3 MG TABLET PEG SCH (20:43)
[2019-03-31] MEDS: INSULIN GLARGINE SYRINGE. SQ SCH (20:54)
[2019-03-31] MEDS: PRAZOSIN 1 MG CAPSULE. PO SCH (21:00)
[2019-04-01 05:45] VITALS: BP 127/71
[2019-04-01] MEDS: LEVOTHYROXINE 125 MCG TABLET PEG SCH (07:30)
[2019-04-01] MEDS: METOCLOPRAMIDE 5 MG TABLET PEG SCH ×3 (07:30→18:17)
[2019-04-01] MEDS: amLODIPine BESYLATE 5 MG TABLET PEG SCH (07:31)
[2019-04-01] MEDS: FAMOTIDINE 20 MG TABLET PEG SCH ×2 (07:31→14:46)
[2019-04-01] MEDS: metOLazone 5 MG TABLET FT SCH (07:33)
[2019-04-01] MEDS: INSULIN LISPRO 300 UNITS/3 ML VIAL. SQ SCH ×3 (07:39→18:14)
[2019-04-01 08:35] LABS: BASO % 1 % (0-3); EOS # 0.1 x10^3/uL (0.0-0.7); EOS % 2 % (0-3); HEMATOCRIT 39.8 % (36.0-47.0); HEMOGLOBIN 13.2 g/dL (12.0-15.5); LYMPH # 1.1 x10^3/uL (1.0-4.8); LYMPH % 23 % (24-48); MEAN CORPUSCULAR HEMOGLOBIN 31 pg (25-35); MEAN CORPUSCULAR HGB CONC 33 g/dL (31-37); MEAN CORPUSCULAR VOLUME 94 fL (79-100); MONO # 0.4 x10^3/uL (0.0-1.1); MONO % 9 % (0-9); NEUT # 3.1 x10^3uL (1.8-7.7); NEUT % 64 % (31-73); PLATELET COUNT 196 x10^3/uL (140-400); RED BLOOD COUNT 4.23 x10^6/uL (3.50-5.40); RED CELL DISTRIBUTION WIDTH 13.6 % (11.5-14.5); WHITE BLOOD COUNT 4.8 x10^3/uL (4.0-11.0)
[2019-04-01 08:57] LABS: ALBUMIN 3.2 g/dL (3.4-5.0); ALBUMIN/GLOBULIN RATIO 0.8 (1.0-1.7); ALK PHOS 69 U/L (46-116); ALT (SGPT) 13 U/L (14-59); ANION GAP 5 (6-14); AST (SGOT) 16 U/L (15-37); BLOOD UREA NITROGEN 21 mg/dL (7-20); BUN/CREATININE RATIO 16 (6-20); CALCIUM 9.1 mg/dL (8.5-10.1); CARBON DIOXIDE 37 mmol/L (21-32); CHLORIDE 100 mmol/L (98-107); CREATININE 1.3 mg/dL (0.6-1.0); GFR 41.6; GLUCOSE 183 mg/dL (70-99); POTASSIUM 3.9 mmol/L (3.5-5.1); SODIUM 142 mmol/L (136-145); TOTAL BILIRUBIN 0.9 mg/dL (0.2-1.0); TOTAL PROTEIN 7.4 g/dL (6.4-8.2)
[2019-04-01 08:59] LABS: VAL ACID 22 mcg/mL (50-100)
[2019-04-01] MEDS: CETIRIZINE 5 MG/5 ML ORAL SOLUTION. PEG SCH (09:00)
[2019-04-01] MEDS: ARIPiprazole 10 MG TABLET PEG SCH (10:00)
[2019-04-01] MEDS: buPROPion 100 MG TABLET PEG SCH ×3 (10:01→20:05)
[2019-04-01] MEDS: VALPROATE ACID 250 MG/5 ML ORAL SOLUTION PEG SCH ×2 (10:02→20:05)
[2019-04-01] MEDS: metFORMIN 500 MG TABLET PO SCH ×2 (10:02→18:16)
[2019-04-01] MEDS: FUROSEMIDE 40 MG TABLET PEG SCH ×2 (10:03→14:33)
[2019-04-01] MEDS: GABAPENTIN 250 MG/5 ML ORAL SOLUTION. PEG SCH ×2 (10:03→20:06)
[2019-04-01] MEDS: CHOLECALCIFEROL (VITAMIN D3) 1,000 UNIT TABLET PEG SCH (10:04)
[2019-04-01] MEDS: POTASSIUM BICARB 20 MEQ EFFERVESCENT TABLET. PEG SCH ×3 (10:04→20:06)
[2019-04-01] MEDS: CLOTRIMAZOLE 1% TOPICAL CREAM 30GM TUBE. TP SCH ×2 (10:05→20:07)
[2019-04-01 15:35] VITALS: BP 153/83
--- NOTE | 2019-04-01 19:54 | PDOC ---
Exam Note: Bradford Note: Please also refer to the separate dictated note~for this date of service dictated separately.~Patient seen individually. Discussed the patient with Nursing staff reviewed the chart.~Reviewed interim history and current functioning. Reviewed vital signs,~Labs/ Radiology~and current medications noted below. Continue current treatment with the changes noted in the dictated addendum note Assessment: Vital Signs/I&O: Vital Signs Date Time Temp Pulse Resp B/P (MAP) Pulse Ox O2 Delivery O2 Flow Rate FiO2 04/01/19 15:35 97.6 103 16 153/83 (106) 96 03/31/19 14:19 Room Air I & O 03/31/19 03/31/19 04/01/19 14:59 22:59 06:59 Intake Total 764 ml 757 ml Balance 764 ml 757 ml Labs: Laboratory Tests Test 04/01/19 07:24 04/01/19 08:03 04/01/19 12:01 04/01/19 17:08 Glucose (Fingerstick) 185 mg/dL (70-99) H 134 mg/dL (70-99) H 136 mg/dL (70-99) H White Blood Count 4.8 x10^3/uL (4.0-11.0) Red Blood Count 4.23 x10^6/uL (3.50-5.40) Hemoglobin 13.2 g/dL (12.0-15.5) Hematocrit 39.8 % (36.0-47.0) Mean Corpuscular Volume 94 fL (79-100) Mean Corpuscular Hemoglobin 31 pg (25-35) Mean Corpuscular Hemoglobin Concent 33 g/dL (31-37) Red Cell Distribution Width 13.6 % (11.5-14.5) Platelet Count 196 x10^3/uL (140-400) Neutrophils (%) (Auto) 64 % (31-73) Lymphocytes (%) (Auto) 23 % (24-48) L Monocytes (%) (Auto) 9 % (0-9) Eosinophils (%) (Auto) 2 % (0-3) Basophils (%) (Auto) 1 % (0-3) Neutrophils # (Auto) 3.1 x10^3uL (1.8-7.7) Lymphocytes # (Auto) 1.1 x10^3/uL (1.0-4.8) Monocytes # (Auto) 0.4 x10^3/uL (0.0-1.1) Eosinophils # (Auto) 0.1 x10^3/uL (0.0-0.7) Basophils # (Auto) 0.0 x10^3/uL (0.0-0.2) Sodium Level 142 mmol/L (136-145) Potassium Level 3.9 mmol/L (3.5-5.1) Chloride Level 100 mmol/L (98-107) Carbon Dioxide Level 37 mmol/L (21-32) H Anion Gap 5 (6-14) L Blood Urea Nitrogen 21 mg/dL (7-20) H Creatinine 1.3 mg/dL (0.6-1.0) H Estimated GFR (Cockcroft-Gault) 41.6 BUN/Creatinine Ratio 16 (6-20) Glucose Level 183 mg/dL (70-99) H Calcium Level 9.1 mg/dL (8.5-10.1) Total Bilirubin 0.9 mg/dL (0.2-1.0) Aspartate Amino Transferase (AST) 16 U/L (15-37) Alanine Aminotransferase (ALT) 13 U/L (14-59) L Alkaline Phosphatase 69 U/L (46-116) Ammonia < 10 mcmol/L (11-34) L Total Protein 7.4 g/dL (6.4-8.2) Albumin 3.2 g/dL (3.4-5.0) L Albumin/Globulin Ratio 0.8 (1.0-1.7) L Valproic Acid Level 22 mcg/mL (50-100) L Valproic Acid Last Dose Date 03/31/19 Valproic Acid Last Dose Time 2100 Test 04/01/19 19:32 Glucose (Fingerstick) 159 mg/dL (70-99) H Current Medications: Meds: Current Medications Medications (Trade) Dose Ordered Sig/Earnest Route PRN Reason Start Time Stop Time Status Last Admin Dose Admin Metolazone (Zaroxolyn) 5 mg DAILY@0830 FT 04/01/19 08:30 04/01/19 07:33 Potassium Bicarbonate (Potassium Effervescent Tablet) 20 meq TID PEG 03/31/19 21:00 04/01/19 14:32 Prazosin HCl (Minipress) 1 mg HS PO 03/31/19 21:00 04/01/19 22:00 03/31/19 21:00 I have reviewed the current psychotropics carefully including drug interactions. Risk benefit ratio favors no change other than as noted in my dictated progress note. Diagnosis: Problems: (1) Anxiety disorder (2) Major depressive disorder, recurrent episode KADEN ROSSI MD Apr 01, 2019 19:54
[2019-04-01] MEDS: ATORVASTATIN CALCIUM 20 MG TABLET PEG SCH (20:05)
[2019-04-01] MEDS: rOPINIRole 1 MG TABLET. PEG SCH (20:05)
[2019-04-01] MEDS: MELATONIN 3 MG TABLET PEG SCH (20:06)
[2019-04-01] MEDS: traZODone 50 MG TABLET. PEG SCH (20:06)
[2019-04-01] MEDS: PRAZOSIN 1 MG CAPSULE. PO SCH (20:07)
[2019-04-01] MEDS: INSULIN GLARGINE SYRINGE. SQ SCH (20:08)
--- NOTE | 2019-04-01 21:12 | PN ---
DATE: 03/30/2019 PSYCHIATRIC PROGRESS NOTE This late entry 03/30/2019 covers the elements not covered in my initial note. SUBJECTIVE: I met with the patient in the evening. Per JOSETTE Forte, the patient slept 7-1/4 hours previous night. Also discussed with [facility] staff for a lengthy discussion with the patient. The patient has contracted not to hurt herself. States she is able to keep her mind away from the hallucinations and was "beyond the silva" after she got her own clothes back. She slept 7-1/4 hours previous night. She does get anxious, received Ativan x 2. Labs and valproic acid level will be checked on 04/01/2019. REVIEW OF SYSTEMS: Ambulation impaired with assistance. No CV, , pulmonary, eye system symptoms on review. MENTAL STATUS EXAM: Reasonably oriented. Speech is coherent, abstraction fair, computation impaired, language function intact. She is still having some hallucinations, auditory and visual command, but denies she would act what they are telling her to try to hurt herself and states they are less intense. No CV, , pulmonary, eye system symptoms on review. MENTAL STATUS EXAM: Oriented. Speech has some latency, coherent. Abstraction fair, computation impaired, language function intact. Mood and affect, intermittently withdrawn. LABORATORY DATA: Reviewed. IMPRESSION: Unchanged from initial note. PLAN: No change from initial note. Follow labs. Adjust Depakote to reach therapeutic level. MAN Lennox ROSSI MD DR: LAWSON/dimitri JOB#: [id number] / [id number]
[2019-04-02 06:02] VITALS: BP 138/73
[2019-04-02] MEDS: LEVOTHYROXINE 125 MCG TABLET PEG SCH (06:09)
[2019-04-02 07:37] LABS: CALCIUM 9.2 mg/dL (8.5-10.1); CREATININE 1.4 mg/dL (0.6-1.0); GFR 38.2
[2019-04-02 07:50] LABS: POTASSIUM 2.7 mmol/L (3.5-5.1)
[2019-04-02] MEDS ORDERED: POTASSIUM BICARB 20 MEQ EFFERVESCENT TABLET. PEG ONE ×3 (08:15→10:00)
[2019-04-02] MEDS: POTASSIUM BICARB 20 MEQ EFFERVESCENT TABLET. PEG SCH ×3 (08:20→20:02)
[2019-04-02] MEDS: VALPROATE ACID 250 MG/5 ML ORAL SOLUTION PEG SCH ×2 (08:21→20:01)
[2019-04-02] MEDS: ARIPiprazole 15 MG TABLET PEG SCH (08:21)
[2019-04-02] MEDS: METOCLOPRAMIDE 5 MG TABLET PEG SCH ×3 (08:22→17:21)
[2019-04-02] MEDS: FAMOTIDINE 20 MG TABLET PEG SCH ×2 (08:22→17:21)
[2019-04-02] MEDS: GABAPENTIN 250 MG/5 ML ORAL SOLUTION. PEG SCH ×2 (08:22→20:02)
[2019-04-02] MEDS: metFORMIN 500 MG TABLET PO SCH ×2 (08:23→17:21)
[2019-04-02] MEDS: metOLazone 5 MG TABLET FT SCH (08:23)
[2019-04-02] MEDS: CHOLECALCIFEROL (VITAMIN D3) 1,000 UNIT TABLET PEG SCH (08:23)
[2019-04-02] MEDS: buPROPion 100 MG TABLET PEG SCH ×3 (08:23→20:02)
[2019-04-02] MEDS: CETIRIZINE 5 MG/5 ML ORAL SOLUTION. PEG SCH (08:24)
[2019-04-02] MEDS: FUROSEMIDE 40 MG TABLET PEG SCH ×2 (08:24→12:53)
[2019-04-02] MEDS: amLODIPine BESYLATE 5 MG TABLET PEG SCH (08:24)
[2019-04-02] MEDS: INSULIN LISPRO 300 UNITS/3 ML VIAL. SQ SCH ×3 (08:28→17:23)
[2019-04-02] MEDS: CLOTRIMAZOLE 1% TOPICAL CREAM 30GM TUBE. TP SCH ×2 (08:30→21:00)
[2019-04-02] MEDS: MAG HYDROX/AL HYDROX/SIMETH 30 ML ORAL.SUSP PEG PRN (10:26)
[2019-04-02 12:24] LABS: CALCIUM 9.4 mg/dL (8.5-10.1); CREATININE 1.5 mg/dL (0.6-1.0); GFR 35.3
[2019-04-02 12:30] LABS: POTASSIUM 4.1 mmol/L (3.5-5.1)
--- NOTE | 2019-04-02 14:02 | TX PLAN ---
Interdisciplinary Tx Plan Admission Information Mar 14, 2019 at 18:57 Legal Status (on Admission): Voluntary Verified Code Status: Full Code Allergies: Coded Allergies: Penicillins (Verified Allergy, Unknown, 03/14/19) Pork/Porcine Containing Products (Verified Allergy, Unknown, 03/14/19) aspirin (Verified Allergy, Unknown, 03/14/19) codeine (Verified Allergy, Unknown, 03/14/19) dobutamine (Verified Allergy, Unknown, 03/14/19) ibuprofen (Verified Allergy, Unknown, 03/14/19) insulin glargine (Verified Allergy, Unknown, 03/14/19) meperidine (Verified Allergy, Unknown, 03/14/19) morphine (Verified Allergy, Unknown, 03/14/19) salmeterol (Verified Allergy, Unknown, 03/14/19) Diagnoses Reasons for Admission: Depressed, Suicidal attempt, Anxiety/Panic, Suicidal ideation, Poor impulse control, Other Problems Active Problems: Medication non-compliance Actively SI with threats/attempts 1:1 for SI attempt hours after admission Discharge Criteria Discharge Criteria: Able meet basic life need, No need for close observ., Able to meet health needs, Adequate arrangements @DC, Verbal commit aftercare, Adequate self-care, Verbal commit med comply, Improved behavior, Improved mood/thought Identified Problems/Hx/Goals Objectives/Short-Term Goals Short Term Goals: Dec. Anxiety/Panic, Dec. Hallucination/Delus, Decrease Isolation, Dec. Symp. Depression, Improved Social Skills, Medication Stabilization, Monitor Med Effects, No Suicidal/Buffy. ideation, Promote Coping Skill Short Term Goals in Patient's: I want to go home. Decrease these hallucinations and thoughts of self-harm Interventions/Frequency Staff Interventions/Frequency&: Psychiatrist to see pt at least 3x per week. Die Stamping Press Operator to see pt at least 2x per week. Nursing to complete 15 minute checks daily Encourage participation in group activities History Social: N/A Community Follow-up [facility] Community Provider/Family Inpu: Family is not involved. Treatment Plan Explained Patient/Quenching Car Operator had this treatment plan explained to him/her as indicated by the signature below and has been given the opportunity to ask questions and make suggestions: Date: Patient/Quenching Car Operator Signature: Patient/Quenching Car Operator Decline: No (Pt is her own guardian.) Team Members Signatures Team Members Psychiatrist Date Nursing Date CM/SW Date Activity Therapy Date Other Date Other Date [facility],DANIEL Apr 02, 2019 14:02
--- NOTE | 2019-04-02 15:31 | PN ---
DATE: 03/31/2019 PSYCHIATRIC PROGRESS NOTE This late entry 03/31 covers elements not covered in my initial note. SUBJECTIVE: I met with the patient evening of 03/31. The patient slept 7-1/2 hours previous night. She remains somewhat withdrawn, still has some intermittent hallucinations, gets anxious, received Ativan to help with this. REVIEW OF SYSTEMS: Ambulation impaired. No CV, , pulmonary, eye system symptoms on review. MENTAL STATUS EXAM: Reasonably oriented. Speech has some latency, coherent. Abstraction fair, computation impaired, language function intact. Mood and affect withdrawn, still psychotic. Denies active suicidal ideation, but the command hallucinations still tell her to hurt herself. She states she keeps herself busy so that she can ignore him. LABORATORY DATA: Reviewed. IMPRESSION: Major depressive disorder with psychotic features, probable bipolar disorder, mixed with psychotic features. Rest unchanged, personality disorder, history of posttraumatic stress disorder. PLAN: Start prazosin 1 mg at bedtime for PTSD, increasing in 2 days to 2 mg at bedtime. Continue rest unchanged. Adjust Depakote to reach therapeutic level. Rest unchanged from initial note. MAN Lennox ROSSI MD DR: LAWSON/dimitri JOB#: [id number] / [id number]
[2019-04-02 15:50] VITALS: BP 110/75
--- NOTE | 2019-04-02 15:58 | PN ---
DATE: 04/01/2019 PSYCHIATRIC PROGRESS NOTE This late entry 04/01/2019 covers elements not covered in my initial note. SUBJECTIVE: I met with the patient evening of 04/01/2019. The patient slept 6-1/4 hours previous night. She states she sees a small mouse and has been hearing voices and then was telling nursing staff that she wishes she would not do anything stupid so that her discharge is canceled before she goes home. I have addressed this at length with her. REVIEW OF SYSTEMS: Impaired ambulation. She is wearing her own clothes, not onesie. No CV, , pulmonary, eye system symptoms on review. MENTAL STATUS EXAM: Oriented to herself and situation. Speech is coherent, has some latency. Abstraction fair, computation impaired, language function intact. Mood and affect remains somewhat anxious, labile, withdrawn at times. LABORATORY DATA: Reviewed. IMPRESSION: Major depressive disorder, recurrent with psychotic features, probable bipolar disorder, mixed with psychotic features, personality disorder, posttraumatic stress disorder. PLAN: The patient's valproic acid level is 22, subtherapeutic. She is on Depakote 250 b.i.d., we will increase to 300-500 b.i.d. Check CBC, CMP, valproic acid level in 3 days. Increase Luvox from 50 mg daily to 75 mg a day and Abilify from 25 mg a day to 30 mg a day on account of her ongoing psychosis. Continue rest unchanged for now and she is on line of sight checks not one-on-one. Denies active suicidal ideation. KADEN ROSSI MD DR: LAWSON/dimitri JOB#: [id number] / [id number]
--- NOTE | 2019-04-02 19:49 | PDOC ---
Exam Note: Bradford Note: Please also refer to the separate dictated note~for this date of service dictated separately.~Patient seen individually. Discussed the patient with Nursing staff reviewed the chart.~Reviewed interim history and current functioning. Reviewed vital signs,~Labs/ Radiology~and current medications noted below. Continue current treatment with the changes noted in the dictated addendum note Assessment: Vital Signs/I&O: Vital Signs Date Time Temp Pulse Resp B/P (MAP) Pulse Ox O2 Delivery O2 Flow Rate FiO2 04/02/19 15:50 97.9 100 18 110/75 (87) 96 04/02/19 06:02 Room Air I & O 04/01/19 04/01/19 04/02/19 14:59 22:59 06:59 Intake Total 0 ml 1274 ml Balance 0 ml 1274 ml Labs: Laboratory Tests Test 04/02/19 06:47 04/02/19 07:22 04/02/19 12:09 04/02/19 17:03 Sodium Level 140 mmol/L (136-145) 139 mmol/L (136-145) Potassium Level 2.7 mmol/L (3.5-5.1) #*L 4.1 mmol/L (3.5-5.1) # Chloride Level 94 mmol/L (98-107) L 92 mmol/L (98-107) L Carbon Dioxide Level 35 mmol/L (21-32) H 39 mmol/L (21-32) H Anion Gap 11 (6-14) 8 (6-14) Blood Urea Nitrogen 19 mg/dL (7-20) 19 mg/dL (7-20) Creatinine 1.4 mg/dL (0.6-1.0) H 1.5 mg/dL (0.6-1.0) H Estimated GFR (Cockcroft-Gault) 38.2 35.3 Glucose Level 183 mg/dL (70-99) H 202 mg/dL (70-99) H Calcium Level 9.2 mg/dL (8.5-10.1) 9.4 mg/dL (8.5-10.1) Glucose (Fingerstick) 179 mg/dL (70-99) H 183 mg/dL (70-99) H Test 04/02/19 19:04 Glucose (Fingerstick) 169 mg/dL (70-99) H Current Medications: Meds: Current Medications Medications (Trade) Dose Ordered Sig/Earnest Route PRN Reason Start Time Stop Time Status Last Admin Dose Admin Fluvoxamine Maleate (Luvox) 75 mg DAILY PEG 04/02/19 09:00 04/02/19 08:22 Aripiprazole (Abilify) 30 mg DAILY PEG 04/02/19 09:00 04/02/19 08:21 Valproic Acid (Depakene) 500 mg BID PEG 04/02/19 09:00 04/02/19 08:21 Potassium Bicarbonate (Potassium Effervescent Tablet) 40 meq 1X ONCE PEG 04/02/19 08:15 04/02/19 08:16 DC 04/02/19 08:20 Potassium Bicarbonate (Potassium Effervescent Tablet) 40 meq 1X ONCE PEG 04/02/19 09:00 04/02/19 09:01 DC 04/02/19 09:24 Potassium Bicarbonate (Potassium Effervescent Tablet) 40 meq 1X ONCE PEG 04/02/19 10:00 04/02/19 10:01 DC 04/02/19 10:24 I have reviewed the current psychotropics carefully including drug interactions. Risk benefit ratio favors no change other than as noted in my dictated progress note. Diagnosis: Problems: (1) Anxiety disorder (2) Major depressive disorder, recurrent episode KADEN ROSSI MD Apr 02, 2019 19:49
[2019-04-02] MEDS: INSULIN GLARGINE SYRINGE. SQ SCH (20:00)
[2019-04-02] MEDS: rOPINIRole 1 MG TABLET. PEG SCH (20:02)
[2019-04-02] MEDS: traZODone 50 MG TABLET. PEG SCH (20:02)
[2019-04-02] MEDS: MELATONIN 3 MG TABLET PEG SCH (20:03)
[2019-04-02] MEDS: ATORVASTATIN CALCIUM 20 MG TABLET PEG SCH (20:03)
[2019-04-02] MEDS: PRAZOSIN 1 MG CAPSULE. PO SCH (20:08)
[2019-04-03 06:07] VITALS: BP_SYST 107; BP_SYST 137; BP_DIAS 65; BP_DIAS 75
[2019-04-03] MEDS: LEVOTHYROXINE 125 MCG TABLET PEG SCH (06:10)
[2019-04-03 06:49] LABS: CALCIUM 9.1 mg/dL (8.5-10.1); CREATININE 1.4 mg/dL (0.6-1.0); GFR 38.2; POTASSIUM 3.1 mmol/L (3.5-5.1)
[2019-04-03] MEDS: CLOTRIMAZOLE 1% TOPICAL CREAM 30GM TUBE. TP SCH ×2 (08:32→21:52)
[2019-04-03] MEDS: GABAPENTIN 250 MG/5 ML ORAL SOLUTION. PEG SCH ×2 (08:32→21:52)
[2019-04-03] MEDS: traMADol 50 MG TABLET PEG PRN (08:32)
[2019-04-03] MEDS: POTASSIUM BICARB 20 MEQ EFFERVESCENT TABLET. PEG SCH (08:33)
[2019-04-03] MEDS: VALPROATE ACID 250 MG/5 ML ORAL SOLUTION PEG SCH ×2 (08:33→21:23)
[2019-04-03] MEDS: ARIPiprazole 15 MG TABLET PEG SCH (08:33)
[2019-04-03] MEDS: CHOLECALCIFEROL (VITAMIN D3) 1,000 UNIT TABLET PEG SCH (08:33)
[2019-04-03] MEDS: FAMOTIDINE 20 MG TABLET PEG SCH ×2 (08:34→16:49)
[2019-04-03] MEDS: METOCLOPRAMIDE 5 MG TABLET PEG SCH ×3 (08:34→16:49)
[2019-04-03] MEDS: metFORMIN 500 MG TABLET PO SCH (08:34)
[2019-04-03] MEDS: amLODIPine BESYLATE 5 MG TABLET PEG SCH (08:34)
[2019-04-03] MEDS: FUROSEMIDE 40 MG TABLET PEG SCH ×2 (08:34→14:19)
[2019-04-03] MEDS: CETIRIZINE 5 MG/5 ML ORAL SOLUTION. PEG SCH (08:35)
[2019-04-03] MEDS: metOLazone 2.5 MG TABLET FT SCH (08:37)
[2019-04-03] MEDS: INSULIN LISPRO 300 UNITS/3 ML VIAL. SQ SCH ×3 (08:53→16:53)
[2019-04-03] MEDS: buPROPion 100 MG TABLET PEG SCH ×4 (08:53→21:25)
[2019-04-03 16:01] VITALS: BP 118/74
--- NOTE | 2019-04-03 19:51 | PDOC ---
Exam Note: Bradfrod Note: Please also refer to the separate dictated note~for this date of service dictated separately.~Patient seen individually. Discussed the patient with Nursing staff reviewed the chart.~Reviewed interim history and current functioning. Reviewed vital signs,~Labs/ Radiology~and current medications noted below. Continue current treatment with the changes noted in the dictated addendum note Assessment: Vital Signs/I&O: Vital Signs Date Time Temp Pulse Resp B/P (MAP) Pulse Ox O2 Delivery O2 Flow Rate FiO2 04/03/19 16:01 97.6 81 18 118/74 (89) 94 Room Air I & O 04/02/19 04/02/19 04/03/19 15:00 23:00 07:00 Intake Total 782 ml 337 ml 0 ml Balance 782 ml 337 ml 0 ml Labs: Laboratory Tests Test 04/03/19 06:30 04/03/19 08:02 04/03/19 12:04 04/03/19 16:50 Sodium Level 141 mmol/L (136-145) Potassium Level 3.1 mmol/L (3.5-5.1) #L Chloride Level 93 mmol/L (98-107) L Carbon Dioxide Level 42 mmol/L (21-32) H Anion Gap 6 (6-14) Blood Urea Nitrogen 23 mg/dL (7-20) H Creatinine 1.4 mg/dL (0.6-1.0) H Estimated GFR (Cockcroft-Gault) 38.2 Glucose Level 202 mg/dL (70-99) H Calcium Level 9.1 mg/dL (8.5-10.1) Glucose (Fingerstick) 199 mg/dL (70-99) H 185 mg/dL (70-99) H 173 mg/dL (70-99) H Test 04/03/19 18:55 Glucose (Fingerstick) 190 mg/dL (70-99) H Current Medications: Meds: Current Medications Medications (Trade) Dose Ordered Sig/Earnest Route PRN Reason Start Time Stop Time Status Last Admin Dose Admin Prazosin HCl (Minipress) 2 mg HS PO 04/02/19 21:00 04/02/19 20:08 Metolazone (Zaroxolyn) 2.5 mg DAILY@0830 FT 04/03/19 08:30 04/03/19 08:37 Potassium Bicarbonate (Potassium Effervescent Tablet) 40 meq BID PEG 04/02/19 21:00 04/03/19 14:57 DC 04/03/19 08:33 I have reviewed the current psychotropics carefully including drug interactions. Risk benefit ratio favors no change other than as noted in my dictated progress note. Diagnosis: Problems: (1) Anxiety disorder (2) Major depressive disorder, recurrent episode KADEN ROSSI MD Apr 03, 2019 19:51
[2019-04-03] MEDS ORDERED: POTASSIUM CHLORIDE 20 MEQ TABLET.ER. PO SCH (21:00)
[2019-04-03] MEDS: MELATONIN 3 MG TABLET PEG SCH (21:21)
[2019-04-03] MEDS: ATORVASTATIN CALCIUM 20 MG TABLET PEG SCH (21:23)
[2019-04-03] MEDS: PRAZOSIN 1 MG CAPSULE. PO SCH (21:24)
[2019-04-03] MEDS: traZODone 50 MG TABLET. PEG SCH (21:24)
[2019-04-03] MEDS: rOPINIRole 1 MG TABLET. PEG SCH (21:52)
[2019-04-03] MEDS: POTASSIUM CHLORIDE 20 MEQ TABLET.ER. PO SCH (21:53)
[2019-04-03] MEDS: INSULIN GLARGINE SYRINGE. SQ SCH (22:02)
[2019-04-03] MEDS ORDERED: CLOTRIMAZOLE 1% TOPICAL CREAM 30GM TUBE. TP PRN (22:15)
--- NOTE | 2019-04-03 23:20 | PN ---
DATE: 04/02/2019 This late entry, 04/02/2019, covers the elements not covered in my initial note. SUBJECTIVE: I met with the patient in the evening. Per JOSETTE Sal, the patient slept reasonably previous night. She has been anxious. Potassium is low, being supplemented. Denies hallucinations and active suicidal ideation, but gets overwhelmed with extra stimuli, which was quite evident on the unit on 04/02/2019. REVIEW OF SYSTEMS: No CV, , pulmonary, or eye system symptoms on review. Gait unsteady. MENTAL STATUS EXAM: Oriented reasonably. Speech has some latency, coherent. Abstraction fair, computation impaired, language function intact, and attention span short. Mood and affect remain somewhat anxious, labile. LABORATORY DATA: Reviewed. IMPRESSION: Unchanged from initial note. PLAN: No change from initial note. We have gradually increased the Depakene to reach therapeutic level. Luvox is being adjusted for OCD. Abilify for psychosis. MAN Lennox ROSSI MD DR: LAWSON/dimitri JOB#: [id number] / [id number]
[2019-04-04] MEDS: LEVOTHYROXINE 125 MCG TABLET PEG SCH (06:05)
[2019-04-04 06:29] VITALS: BP 123/72
[2019-04-04 06:39] LABS: CREATININE 1.6 mg/dL (0.6-1.0); GFR 32.8
[2019-04-04 06:41] LABS: POTASSIUM 2.9 mmol/L (3.5-5.1)
[2019-04-04] MEDS ORDERED: POTASSIUM CHLORIDE 20 MEQ TABLET.ER. PO ONE ×3 (07:00→09:00)
[2019-04-04] MEDS: FAMOTIDINE 20 MG TABLET PEG SCH ×4 (07:30→17:33)
[2019-04-04] MEDS: METOCLOPRAMIDE 5 MG TABLET PEG SCH ×3 (08:00→17:33)
[2019-04-04] MEDS: VALPROATE ACID 250 MG/5 ML ORAL SOLUTION PEG SCH ×2 (09:03→21:19)
[2019-04-04] MEDS: SPIRONOLACTONE 25 MG TABLET PO SCH (09:04)
[2019-04-04] MEDS: metOLazone 2.5 MG TABLET FT SCH (09:04)
[2019-04-04] MEDS: buPROPion 100 MG TABLET PEG SCH ×3 (09:04→21:18)
[2019-04-04] MEDS: CHOLECALCIFEROL (VITAMIN D3) 1,000 UNIT TABLET PEG SCH (09:04)
[2019-04-04] MEDS: ARIPiprazole 15 MG TABLET PEG SCH (09:04)
[2019-04-04] MEDS: amLODIPine BESYLATE 5 MG TABLET PEG SCH (09:05)
[2019-04-04] MEDS: FUROSEMIDE 40 MG TABLET PEG SCH ×2 (09:05→13:07)
[2019-04-04] MEDS: POTASSIUM CHLORIDE 20 MEQ TABLET.ER. PO SCH ×3 (09:05→21:17)
[2019-04-04] MEDS: GABAPENTIN 250 MG/5 ML ORAL SOLUTION. PEG SCH ×2 (09:11→21:18)
[2019-04-04] MEDS: INSULIN LISPRO 300 UNITS/3 ML VIAL. SQ SCH ×3 (09:13→17:34)
[2019-04-04] MEDS: CETIRIZINE 5 MG/5 ML ORAL SOLUTION. PEG SCH (09:13)
[2019-04-04 10:36] LABS: ALBUMIN 3.2 g/dL (3.4-5.0); ALBUMIN/GLOBULIN RATIO 0.7 (1.0-1.7); CALCIUM 9.3 mg/dL (8.5-10.1); CREATININE 1.6 mg/dL (0.6-1.0); GFR 32.8; POTASSIUM 3.4 mmol/L (3.5-5.1); TOTAL PROTEIN 8.1 g/dL (6.4-8.2)
[2019-04-04 15:39] VITALS: BP 144/79
--- NOTE | 2019-04-04 16:21 | PN ---
DATE: 04/03/2019 PSYCHIATRIC PROGRESS NOTE This late entry 04/03/2019 covers elements not covered in my initial note. SUBJECTIVE: I met with the patient in the evening and staffed at a treatment team meeting with the entire team earlier in the day. Per nursing report, the patient slept 7 hours previous night. Appetite is better. The patient is talking about hearing voices this morning telling her to kill herself. She is also experiencing recurrent visual hallucinations. She remains somewhat obsessive, labile, anxious and after staff in [facility] service staff addressed this with her and to discuss postponing discharge consequent to her active hallucinations and suicidal ideation, she was extremely upset feeling things were done unfairly and I addressed this with her at some length in the evening. REVIEW OF SYSTEMS: Ambulation impaired. No CV, , pulmonary, eye system symptoms on review. MENTAL STATUS EXAM: Reasonably oriented. Speech has some latency, coherent. Abstraction fair. Computation impaired. Language function intact. Attention span short. Mood and affect labile. IMPRESSION: Unchanged from initial note. PLAN: After the patient has been on 75 mg Luvox three doses, we will increase to 100 mg a day. We will check labs level on the Depakote on 04/04/2019, adjust to reach therapeutic level. She remains on line of sight. Nursing staff reported to be "gamey" and we will address this in psychotherapy. Postpone the discharge. Rest unchanged for now. She will be getting [facility]. KADEN ROSSI MD DR: LAWSON/dimitri JOB#: [id number] / [id number]
--- NOTE | 2019-04-04 19:49 | PDOC ---
Exam Note: Bradford Note: Please also refer to the separate dictated note~for this date of service dictated separately.~Patient seen individually. Discussed the patient with Nursing staff reviewed the chart.~Reviewed interim history and current functioning. Reviewed vital signs,~Labs/ Radiology~and current medications noted below. Continue current treatment with the changes noted in the dictated addendum note Assessment: Vital Signs/I&O: Vital Signs Date Time Temp Pulse Resp B/P (MAP) Pulse Ox O2 Delivery O2 Flow Rate FiO2 04/04/19 15:39 98.2 65 16 144/79 (100) 97 04/03/19 16:01 Room Air I & O 04/03/19 04/03/19 04/04/19 15:00 23:00 07:00 Intake Total 297 ml 210 ml Balance 297 ml 210 ml Labs: Laboratory Tests Test 04/04/19 05:58 04/04/19 07:30 04/04/19 09:56 04/04/19 11:56 Sodium Level 141 mmol/L (136-145) 142 mmol/L (136-145) Potassium Level 2.9 mmol/L (3.5-5.1) *L 3.4 mmol/L (3.5-5.1) L Chloride Level 93 mmol/L (98-107) L 94 mmol/L (98-107) L Carbon Dioxide Level 42 mmol/L (21-32) H 44 mmol/L (21-32) H Anion Gap 6 (6-14) 4 (6-14) L Blood Urea Nitrogen 25 mg/dL (7-20) H 25 mg/dL (7-20) H Creatinine 1.6 mg/dL (0.6-1.0) H 1.6 mg/dL (0.6-1.0) H Estimated GFR (Cockcroft-Gault) 32.8 32.8 Glucose Level 192 mg/dL (70-99) H 218 mg/dL (70-99) H Calcium Level 9.0 mg/dL (8.5-10.1) 9.3 mg/dL (8.5-10.1) Glucose (Fingerstick) 184 mg/dL (70-99) H 237 mg/dL (70-99) H BUN/Creatinine Ratio 16 (6-20) Total Bilirubin 1.0 mg/dL (0.2-1.0) Aspartate Amino Transferase (AST) 17 U/L (15-37) Alanine Aminotransferase (ALT) 15 U/L (14-59) Alkaline Phosphatase 66 U/L (46-116) Total Protein 8.1 g/dL (6.4-8.2) Albumin 3.2 g/dL (3.4-5.0) L Albumin/Globulin Ratio 0.7 (1.0-1.7) L Test 04/04/19 16:34 04/04/19 19:11 Glucose (Fingerstick) 172 mg/dL (70-99) H 214 mg/dL (70-99) H Current Medications: Meds: Current Medications Medications (Trade) Dose Ordered Sig/Earnest Route PRN Reason Start Time Stop Time Status Last Admin Dose Admin Spironolactone (Aldactone) 25 mg DAILY PO 04/04/19 09:00 04/04/19 09:04 Potassium Chloride (Klor-Con) 40 meq TID PO 04/03/19 21:00 04/04/19 13:04 Potassium Chloride (Klor-Con) 40 meq 1X ONCE PO 04/04/19 07:00 04/04/19 07:05 DC 04/04/19 07:17 Potassium Chloride (Klor-Con) 40 meq 1X ONCE PO 04/04/19 08:00 04/04/19 08:01 DC 04/04/19 08:00 Potassium Chloride (Klor-Con) 40 meq 1X ONCE PO 04/04/19 09:00 04/04/19 09:01 DC 04/04/19 09:06 I have reviewed the current psychotropics carefully including drug interactions. Risk benefit ratio favors no change other than as noted in my dictated progress note. Diagnosis: Problems: (1) Anxiety disorder (2) Major depressive disorder, recurrent episode KADEN ROSSI MD Apr 04, 2019 19:49
[2019-04-04] MEDS: PRAZOSIN 1 MG CAPSULE. PO SCH (21:17)
[2019-04-04] MEDS: traZODone 50 MG TABLET. PEG SCH (21:18)
[2019-04-04] MEDS: rOPINIRole 1 MG TABLET. PEG SCH (21:18)
[2019-04-04] MEDS: MELATONIN 3 MG TABLET PEG SCH (21:18)
[2019-04-04] MEDS: ATORVASTATIN CALCIUM 20 MG TABLET PEG SCH (21:18)
[2019-04-04] MEDS: INSULIN GLARGINE SYRINGE. SQ SCH (21:28)
[2019-04-05 05:45] VITALS: BP 131/75
[2019-04-05] MEDS: LEVOTHYROXINE 125 MCG TABLET PEG SCH (06:44)
[2019-04-05] MEDS: INSULIN LISPRO 300 UNITS/3 ML VIAL. SQ SCH ×3 (07:30→17:07)
[2019-04-05 08:27] LABS: BASO % 1 % (0-3); EOS # 0.1 x10^3/uL (0.0-0.7); EOS % 2 % (0-3); HEMATOCRIT 40.9 % (36.0-47.0); HEMOGLOBIN 13.5 g/dL (12.0-15.5); LYMPH # 1.2 x10^3/uL (1.0-4.8); LYMPH % 25 % (24-48); MEAN CORPUSCULAR HEMOGLOBIN 31 pg (25-35); MEAN CORPUSCULAR HGB CONC 33 g/dL (31-37); MEAN CORPUSCULAR VOLUME 94 fL (79-100); MONO # 0.5 x10^3/uL (0.0-1.1); MONO % 11 % (0-9); NEUT % 62 % (31-73); PLATELET COUNT 204 x10^3/uL (140-400); RED BLOOD COUNT 4.33 x10^6/uL (3.50-5.40); RED CELL DISTRIBUTION WIDTH 13.9 % (11.5-14.5); WHITE BLOOD COUNT 4.9 x10^3/uL (4.0-11.0)
[2019-04-05 08:42] LABS: ALBUMIN 3.2 g/dL (3.4-5.0); ALBUMIN/GLOBULIN RATIO 0.7 (1.0-1.7); ALK PHOS 67 U/L (46-116); ALT (SGPT) 14 U/L (14-59); ANION GAP 6 (6-14); AST (SGOT) 18 U/L (15-37); BLOOD UREA NITROGEN 25 mg/dL (7-20); BUN/CREATININE RATIO 17 (6-20); CALCIUM 9.3 mg/dL (8.5-10.1); CARBON DIOXIDE 42 mmol/L (21-32); CHLORIDE 95 mmol/L (98-107); CREATININE 1.5 mg/dL (0.6-1.0); GFR 35.3; GLUCOSE 188 mg/dL (70-99); SODIUM 143 mmol/L (136-145); TOTAL BILIRUBIN 0.8 mg/dL (0.2-1.0); TOTAL PROTEIN 7.6 g/dL (6.4-8.2)
[2019-04-05 08:52] LABS: POTASSIUM 2.9 mmol/L (3.5-5.1); VAL ACID 49 mcg/mL (50-100)
[2019-04-05] MEDS: CETIRIZINE 5 MG/5 ML ORAL SOLUTION. PEG SCH (09:00)
[2019-04-05] MEDS: FAMOTIDINE 20 MG TABLET PEG SCH ×2 (09:35→17:05)
[2019-04-05] MEDS: metOLazone 2.5 MG TABLET FT SCH (09:36)
[2019-04-05] MEDS: ARIPiprazole 15 MG TABLET PEG SCH (09:36)
[2019-04-05] MEDS: METOCLOPRAMIDE 5 MG TABLET PEG SCH ×3 (09:36→17:05)
[2019-04-05] MEDS: VALPROATE ACID 250 MG/5 ML ORAL SOLUTION PEG SCH ×2 (09:37→20:48)
[2019-04-05] MEDS: FUROSEMIDE 40 MG TABLET PEG SCH ×2 (09:37→14:00)
[2019-04-05] MEDS: GABAPENTIN 250 MG/5 ML ORAL SOLUTION. PEG SCH ×2 (09:38→20:50)
[2019-04-05] MEDS: CHOLECALCIFEROL (VITAMIN D3) 1,000 UNIT TABLET PEG SCH (09:38)
[2019-04-05] MEDS: amLODIPine BESYLATE 5 MG TABLET PEG SCH (09:38)
[2019-04-05] MEDS: SPIRONOLACTONE 25 MG TABLET PO SCH (09:39)
[2019-04-05] MEDS: buPROPion 100 MG TABLET PEG SCH ×3 (09:39→20:46)
[2019-04-05] MEDS: POTASSIUM CHLORIDE 20 MEQ TABLET.ER. PO SCH (09:40)
[2019-04-05] MEDS ORDERED: POTASSIUM CHLORIDE 20 MEQ TABLET.ER. PO SCH (10:00)
[2019-04-05] MEDS ORDERED: POTASSIUM CHLORIDE 20 MEQ TABLET.ER. PO ONE ×2 (10:00→11:00)
--- NOTE | 2019-04-05 10:30 | PN ---
DATE: 04/04/2019 PSYCHIATRIC PROGRESS NOTE This late entry 04/04/2019 covers the elements not covered in my initial note. SUBJECTIVE: Per JOSETTE Rhodes, the patient reportedly had a good day. Denies visual hallucinations, but states she hears the voice of her son. She slept 6 hours previous night, but the son's voice still tells her to hurt herself at times, but she is able to resist this. She also had a 2-hour nap during the day. REVIEW OF SYSTEMS: Ambulation impaired. No CV, , pulmonary, eye system symptoms on review. MENTAL STATUS EXAM: Reasonably oriented. Speech has some latency, coherent. Abstraction fair, computation impaired, and language function intact. Mood and affect remain somewhat withdrawn, anxious, labile at times, and less psychotic. LABORATORY DATA: Reviewed. IMPRESSION: Unchanged from initial note. PLAN: No change from initial note and we may need to increase Abilify if auditory hallucinations persist. KADEN ROSSI MD DR: LAWSON/dimitri JOB#: [id number] / [id number]
--- NOTE | 2019-04-05 10:31 | PN ---
DATE: 04/05/2019 PSYCHIATRIC PROGRESS NOTE This note covers elements not covered in my initial note of 04/05/2019. SUBJECTIVE: I met with the patient in the morning. The patient slept 6-1/4 hours previous night. She states the voices of her son telling her to do things seem to be receding but they are still there in the background. Nevertheless, she states that she is strong enough emotionally not given to those voices. REVIEW OF SYSTEMS: Ambulation impaired. No CV, , pulmonary, eye system symptoms on review. MENTAL STATUS EXAM: Reasonably oriented. Speech has some latency, coherent. Abstraction fair, computation impaired, language function intact. Mood and affect somewhat withdrawn, still depressed, anxious, labile at times, but improved. LABORATORY DATA: Reviewed. IMPRESSION: Unchanged from initial note. PLAN: The patient's valproic acid level this morning is 49, AST, ALT unremarkable. Potassium is 2.9, being addressed by Dr. Up. Given her ongoing psychotic symptoms, we will increase the Abilify to 35 mg a day and Depakote is currently 500 b.i.d. We will increase to 625 b.i.d. Check CBC, CMP, valproic acid level in 3 days. Rest unchanged for now including Wellbutrin, Minipress for PTSD at 2 mg at bedtime, melatonin, trazodone and Neurontin. MAN Lennox ROSSI MD DR: LAWSON/dimitri JOB#: [id number] / [id number]
[2019-04-05] MEDS ORDERED: POTASSIUM BICARB 20 MEQ EFFERVESCENT TABLET. PO SCH ×3 (11:00→14:00)
[2019-04-05] MEDS: MAG HYDROX/AL HYDROX/SIMETH 30 ML ORAL.SUSP PEG PRN (13:05)
[2019-04-05 13:22] LABS: CALCIUM 9.5 mg/dL (8.5-10.1); CREATININE 1.7 mg/dL (0.6-1.0); GFR 30.6; POTASSIUM 3.5 mmol/L (3.5-5.1)
[2019-04-05 16:10] VITALS: BP 158/90
--- NOTE | 2019-04-05 20:35 | PDOC ---
Exam Note: Bradford Note: Please also refer to the separate dictated note~for this date of service dictated separately.~Patient seen individually. Discussed the patient with Nursing staff reviewed the chart.~Reviewed interim history and current functioning. Reviewed vital signs,~Labs/ Radiology~and current medications noted below. Continue current treatment with the changes noted in the dictated addendum note Assessment: Vital Signs/I&O: Vital Signs Date Time Temp Pulse Resp B/P (MAP) Pulse Ox O2 Delivery O2 Flow Rate FiO2 04/05/19 16:10 98.3 79 18 158/90 (112) 94 04/03/19 16:01 Room Air I & O 04/04/19 04/04/19 04/05/19 15:00 23:00 07:00 Intake Total 440 ml 180 ml Balance 440 ml 180 ml Labs: Laboratory Tests Test 04/05/19 07:45 04/05/19 07:55 04/05/19 11:48 04/05/19 13:03 White Blood Count 4.9 x10^3/uL (4.0-11.0) Red Blood Count 4.33 x10^6/uL (3.50-5.40) Hemoglobin 13.5 g/dL (12.0-15.5) Hematocrit 40.9 % (36.0-47.0) Mean Corpuscular Volume 94 fL (79-100) Mean Corpuscular Hemoglobin 31 pg (25-35) Mean Corpuscular Hemoglobin Concent 33 g/dL (31-37) Red Cell Distribution Width 13.9 % (11.5-14.5) Platelet Count 204 x10^3/uL (140-400) Neutrophils (%) (Auto) 62 % (31-73) Lymphocytes (%) (Auto) 25 % (24-48) Monocytes (%) (Auto) 11 % (0-9) H Eosinophils (%) (Auto) 2 % (0-3) Basophils (%) (Auto) 1 % (0-3) Neutrophils # (Auto) 3.0 x10^3uL (1.8-7.7) Lymphocytes # (Auto) 1.2 x10^3/uL (1.0-4.8) Monocytes # (Auto) 0.5 x10^3/uL (0.0-1.1) Eosinophils # (Auto) 0.1 x10^3/uL (0.0-0.7) Basophils # (Auto) 0.0 x10^3/uL (0.0-0.2) Sodium Level 143 mmol/L (136-145) 141 mmol/L (136-145) Potassium Level 2.9 mmol/L (3.5-5.1) *L 3.5 mmol/L (3.5-5.1) Chloride Level 95 mmol/L (98-107) L 94 mmol/L (98-107) L Carbon Dioxide Level 42 mmol/L (21-32) H 42 mmol/L (21-32) H Anion Gap 6 (6-14) 5 (6-14) L Blood Urea Nitrogen 25 mg/dL (7-20) H 26 mg/dL (7-20) H Creatinine 1.5 mg/dL (0.6-1.0) H 1.7 mg/dL (0.6-1.0) H Estimated GFR (Cockcroft-Gault) 35.3 30.6 BUN/Creatinine Ratio 17 (6-20) Glucose Level 188 mg/dL (70-99) H 304 mg/dL (70-99) H Calcium Level 9.3 mg/dL (8.5-10.1) 9.5 mg/dL (8.5-10.1) Total Bilirubin 0.8 mg/dL (0.2-1.0) Aspartate Amino Transferase (AST) 18 U/L (15-37) Alanine Aminotransferase (ALT) 14 U/L (14-59) Alkaline Phosphatase 67 U/L (46-116) Total Protein 7.6 g/dL (6.4-8.2) Albumin 3.2 g/dL (3.4-5.0) L Albumin/Globulin Ratio 0.7 (1.0-1.7) L Valproic Acid Level 49 mcg/mL (50-100) L Valproic Acid Last Dose Date 04/04/19 Valproic Acid Last Dose Time 2100 Glucose (Fingerstick) 187 mg/dL (70-99) H 227 mg/dL (70-99) H Test 04/05/19 17:03 Glucose (Fingerstick) 195 mg/dL (70-99) H Current Medications: Meds: Current Medications Medications (Trade) Dose Ordered Sig/Earnest Route PRN Reason Start Time Stop Time Status Last Admin Dose Admin Fluvoxamine Maleate (Luvox) 100 mg DAILY PEG 04/05/19 09:00 04/05/19 09:37 Potassium Chloride (Klor-Con) 40 meq Q1HR PO 04/05/19 10:00 04/05/19 10:36 DC 04/05/19 09:40 Potassium Bicarbonate (Potassium Effervescent Tablet) 40 meq Q1HR PO 04/05/19 11:00 04/05/19 11:01 DC 04/05/19 11:39 Potassium Bicarbonate (Potassium Effervescent Tablet) 40 meq TID PO 04/05/19 14:00 04/05/19 15:34 DC 04/05/19 15:12 Potassium Bicarbonate (Potassium Effervescent Tablet) 40 meq Q1H PO 04/05/19 12:30 04/05/19 12:42 DC 04/05/19 13:05 I have reviewed the current psychotropics carefully including drug interactions. Risk benefit ratio favors no change other than as noted in my dictated progress note. Diagnosis: Problems: (1) Anxiety disorder (2) Major depressive disorder, recurrent episode KADEN ROSSI MD Apr 05, 2019 20:35
[2019-04-05] MEDS: rOPINIRole 1 MG TABLET. PEG SCH (20:46)
[2019-04-05] MEDS: traZODone 50 MG TABLET. PEG SCH (20:46)
[2019-04-05] MEDS: PRAZOSIN 1 MG CAPSULE. PO SCH (20:47)
[2019-04-05] MEDS: MELATONIN 3 MG TABLET PEG SCH (20:47)
[2019-04-05] MEDS: ATORVASTATIN CALCIUM 20 MG TABLET PEG SCH (20:47)
[2019-04-05] MEDS: INSULIN GLARGINE SYRINGE. SQ SCH (20:54)
[2019-04-06] MEDS: LEVOTHYROXINE 125 MCG TABLET PEG SCH (05:52)
[2019-04-06 06:32] VITALS: BP 126/73
[2019-04-06 07:09] LABS: CALCIUM 9.1 mg/dL (8.5-10.1); CREATININE 1.3 mg/dL (0.6-1.0); GFR 41.6
[2019-04-06 07:23] LABS: POTASSIUM 2.8 mmol/L (3.5-5.1)
[2019-04-06] MEDS ORDERED: POTASSIUM BICARB 20 MEQ EFFERVESCENT TABLET. PEG ONE (07:45)
[2019-04-06] MEDS: VALPROATE ACID 250 MG/5 ML ORAL SOLUTION PEG SCH ×2 (07:58→21:01)
[2019-04-06] MEDS: CETIRIZINE 5 MG/5 ML ORAL SOLUTION. PEG SCH (07:59)
[2019-04-06] MEDS: ARIPiprazole 5 MG TABLET PO SCH (08:00)
[2019-04-06] MEDS: buPROPion 100 MG TABLET PEG SCH ×3 (08:00→20:59)
[2019-04-06] MEDS: FAMOTIDINE 20 MG TABLET PEG SCH ×2 (08:00→16:59)
[2019-04-06] MEDS: ARIPiprazole 15 MG TABLET PEG SCH (08:00)
[2019-04-06] MEDS: METOCLOPRAMIDE 5 MG TABLET PEG SCH ×3 (08:02→16:59)
[2019-04-06] MEDS: CHOLECALCIFEROL (VITAMIN D3) 1,000 UNIT TABLET PEG SCH (08:02)
[2019-04-06] MEDS: amLODIPine BESYLATE 5 MG TABLET PEG SCH (08:02)
[2019-04-06] MEDS: GABAPENTIN 250 MG/5 ML ORAL SOLUTION. PEG SCH ×2 (08:03→21:34)
[2019-04-06] MEDS: INSULIN LISPRO 300 UNITS/3 ML VIAL. SQ SCH ×3 (08:06→17:00)
[2019-04-06] MEDS ORDERED: POTASSIUM BICARB 20 MEQ EFFERVESCENT TABLET. PO ONE ×2 (08:30→09:30)
[2019-04-06] MEDS ORDERED: POTASSIUM CHLORIDE 20 MEQ TABLET.ER. PO ONE ×2 (09:30→12:00)
[2019-04-06 15:04] LABS: CALCIUM 8.9 mg/dL (8.5-10.1); CREATININE 1.6 mg/dL (0.6-1.0); GFR 32.8; POTASSIUM 3.3 mmol/L (3.5-5.1)
[2019-04-06 15:32] VITALS: BP 126/77
[2019-04-06] MEDS: LORazepam INTENSOL 2 MG/ML BOTTLE SL PRN (15:32)
--- NOTE | 2019-04-06 20:03 | PDOC ---
Exam Note: Bradford Note: Please also refer to the separate dictated note~for this date of service dictated separately.~Patient seen individually. Discussed the patient with Nursing staff reviewed the chart.~Reviewed interim history and current functioning. Reviewed vital signs,~Labs/ Radiology~and current medications noted below. Continue current treatment with the changes noted in the dictated addendum note Assessment: Vital Signs/I&O: Vital Signs Date Time Temp Pulse Resp B/P (MAP) Pulse Ox O2 Delivery O2 Flow Rate FiO2 04/06/19 15:32 98.2 84 16 126/77 (93) 95 04/03/19 16:01 Room Air I & O 04/05/19 04/05/19 04/06/19 14:59 22:59 06:59 Intake Total 317 ml 297 ml 115 ml Balance 317 ml 297 ml 115 ml Labs: Laboratory Tests Test 04/06/19 06:20 04/06/19 07:49 04/06/19 12:05 04/06/19 14:45 Sodium Level 145 mmol/L (136-145) 142 mmol/L (136-145) Potassium Level 2.8 mmol/L (3.5-5.1) *L 3.3 mmol/L (3.5-5.1) L Chloride Level 98 mmol/L (98-107) 97 mmol/L (98-107) L Carbon Dioxide Level 45 mmol/L (21-32) H 44 mmol/L (21-32) H Anion Gap 2 (6-14) L 1 (6-14) L Blood Urea Nitrogen 25 mg/dL (7-20) H 26 mg/dL (7-20) H Creatinine 1.3 mg/dL (0.6-1.0) H 1.6 mg/dL (0.6-1.0) H Estimated GFR (Cockcroft-Gault) 41.6 32.8 Glucose Level 190 mg/dL (70-99) H 293 mg/dL (70-99) H Calcium Level 9.1 mg/dL (8.5-10.1) 8.9 mg/dL (8.5-10.1) Glucose (Fingerstick) 175 mg/dL (70-99) H 244 mg/dL (70-99) H Test 04/06/19 19:11 Glucose (Fingerstick) 238 mg/dL (70-99) H Current Medications: Meds: Current Medications Medications (Trade) Dose Ordered Sig/Earnest Route PRN Reason Start Time Stop Time Status Last Admin Dose Admin Aripiprazole (Abilify) 30 mg DAILY PEG 04/06/19 09:00 04/06/19 08:00 Valproic Acid (Depakene) 625 mg BID PEG 04/05/19 21:00 04/06/19 07:58 Aripiprazole (Abilify) 5 mg DAILY PO 04/06/19 09:00 04/06/19 08:00 Potassium Bicarbonate (Potassium Effervescent Tablet) 40 meq 1X ONCE PEG 04/06/19 07:45 04/06/19 07:46 DC 04/06/19 08:03 Potassium Chloride (Klor-Con) 40 meq 1X ONCE PO 04/06/19 09:30 04/06/19 09:31 DC 04/06/19 09:53 Potassium Chloride (Klor-Con) 40 meq 1X ONCE PO 04/06/19 12:00 04/06/19 12:01 DC 04/06/19 10:58 I have reviewed the current psychotropics carefully including drug interactions. Risk benefit ratio favors no change other than as noted in my dictated progress note. Diagnosis: Problems: (1) Anxiety disorder (2) Major depressive disorder, recurrent episode KADEN ROSSI MD Apr 06, 2019 20:03
[2019-04-06] MEDS: traZODone 50 MG TABLET. PEG SCH (20:59)
[2019-04-06] MEDS: ATORVASTATIN CALCIUM 20 MG TABLET PEG SCH (20:59)
[2019-04-06] MEDS: MELATONIN 3 MG TABLET PEG SCH (21:00)
[2019-04-06] MEDS: PRAZOSIN 1 MG CAPSULE. PO SCH (21:00)
[2019-04-06] MEDS: rOPINIRole 1 MG TABLET. PEG SCH (21:01)
[2019-04-06] MEDS: INSULIN GLARGINE SYRINGE. SQ SCH (21:04)
[2019-04-07 05:56] VITALS: BP 118/68
[2019-04-07] MEDS: LEVOTHYROXINE 125 MCG TABLET PEG SCH (06:06)
[2019-04-07 06:48] LABS: CALCIUM 8.8 mg/dL (8.5-10.1); CREATININE 1.2 mg/dL (0.6-1.0); GFR 45.7
[2019-04-07 06:53] LABS: POTASSIUM 2.8 mmol/L (3.5-5.1)
[2019-04-07] MEDS ORDERED: POTASSIUM BICARB 20 MEQ EFFERVESCENT TABLET. PEG ONE (07:00)
[2019-04-07] MEDS: METOCLOPRAMIDE 5 MG TABLET PEG SCH ×3 (07:50→16:52)
[2019-04-07] MEDS: FAMOTIDINE 20 MG TABLET PEG SCH ×2 (07:50→16:52)
[2019-04-07] MEDS: ARIPiprazole 15 MG TABLET PEG SCH (08:47)
[2019-04-07] MEDS: buPROPion 100 MG TABLET PEG SCH ×3 (08:48→21:26)
[2019-04-07] MEDS: ARIPiprazole 5 MG TABLET PO SCH (08:48)
[2019-04-07] MEDS: CHOLECALCIFEROL (VITAMIN D3) 1,000 UNIT TABLET PEG SCH (08:48)
[2019-04-07] MEDS: amLODIPine BESYLATE 5 MG TABLET PEG SCH (08:49)
[2019-04-07] MEDS: VALPROATE ACID 250 MG/5 ML ORAL SOLUTION PEG SCH ×2 (08:49→21:28)
[2019-04-07] MEDS: GABAPENTIN 250 MG/5 ML ORAL SOLUTION. PEG SCH ×2 (08:51→21:27)
[2019-04-07] MEDS: CETIRIZINE 5 MG/5 ML ORAL SOLUTION. PEG SCH (09:11)
[2019-04-07] MEDS: INSULIN LISPRO 300 UNITS/3 ML VIAL. SQ SCH ×3 (09:12→16:54)
[2019-04-07 15:28] LABS: BASO % 1 % (0-3); EOS # 0.1 x10^3/uL (0.0-0.7); EOS % 2 % (0-3); HEMATOCRIT 42.4 % (36.0-47.0); HEMOGLOBIN 13.8 g/dL (12.0-15.5); LYMPH # 1.2 x10^3/uL (1.0-4.8); LYMPH % 18 % (24-48); MEAN CORPUSCULAR HEMOGLOBIN 31 pg (25-35); MEAN CORPUSCULAR HGB CONC 33 g/dL (31-37); MEAN CORPUSCULAR VOLUME 95 fL (79-100); MONO # 0.7 x10^3/uL (0.0-1.1); MONO % 10 % (0-9); NEUT # 4.6 x10^3uL (1.8-7.7); NEUT % 70 % (31-73); PLATELET COUNT 207 x10^3/uL (140-400); RED BLOOD COUNT 4.48 x10^6/uL (3.50-5.40); RED CELL DISTRIBUTION WIDTH 13.7 % (11.5-14.5); WHITE BLOOD COUNT 6.7 x10^3/uL (4.0-11.0)
[2019-04-07 15:48] VITALS: BP 146/85
[2019-04-07 15:49] LABS: ALBUMIN 3.2 g/dL (3.4-5.0); ALBUMIN/GLOBULIN RATIO 0.7 (1.0-1.7); CALCIUM 9.3 mg/dL (8.5-10.1); CREATININE 1.3 mg/dL (0.6-1.0); GFR 41.6; POTASSIUM 3.2 mmol/L (3.5-5.1); TOTAL BILIRUBIN 0.6 mg/dL (0.2-1.0); TOTAL PROTEIN 7.9 g/dL (6.4-8.2)
[2019-04-07] MEDS: traZODone 50 MG TABLET. PEG SCH (21:27)
[2019-04-07] MEDS: PRAZOSIN 1 MG CAPSULE. PO SCH (21:27)
[2019-04-07] MEDS: MELATONIN 3 MG TABLET PEG SCH (21:27)
[2019-04-07] MEDS: ATORVASTATIN CALCIUM 20 MG TABLET PEG SCH (21:27)
[2019-04-07] MEDS: rOPINIRole 1 MG TABLET. PEG SCH (21:27)
[2019-04-07] MEDS: INSULIN GLARGINE SYRINGE. SQ SCH (21:29)
--- NOTE | 2019-04-07 21:51 | PDOC ---
Exam Note: Bradford Note: Please also refer to the separate dictated note~for this date of service dictated separately.~Patient seen individually. Discussed the patient with Nursing staff reviewed the chart.~Reviewed interim history and current functioning. Reviewed vital signs,~Labs/ Radiology~and current medications noted below. Continue current treatment with the changes noted in the dictated addendum note Assessment: Vital Signs/I&O: Vital Signs Date Time Temp Pulse Resp B/P (MAP) Pulse Ox O2 Delivery O2 Flow Rate FiO2 04/07/19 21:27 79 146/85 04/07/19 15:48 98.4 16 94.0 04/07/19 05:56 93 04/03/19 16:01 Room Air I & O 04/06/19 04/06/19 04/07/19 15:00 23:00 07:00 Intake Total 782 ml 337 ml Balance 782 ml 337 ml Labs: Laboratory Tests Test 04/07/19 06:27 04/07/19 07:11 04/07/19 12:11 04/07/19 15:21 Sodium Level 143 mmol/L (136-145) 144 mmol/L (136-145) Potassium Level 2.8 mmol/L (3.5-5.1) *L 3.2 mmol/L (3.5-5.1) L Chloride Level 97 mmol/L (98-107) L 96 mmol/L (98-107) L Carbon Dioxide Level 43 mmol/L (21-32) H 41 mmol/L (21-32) H Anion Gap 3 (6-14) L 7 (6-14) Blood Urea Nitrogen 25 mg/dL (7-20) H 29 mg/dL (7-20) H Creatinine 1.2 mg/dL (0.6-1.0) H 1.3 mg/dL (0.6-1.0) H Estimated GFR (Cockcroft-Gault) 45.7 41.6 Glucose Level 183 mg/dL (70-99) H 236 mg/dL (70-99) H Calcium Level 8.8 mg/dL (8.5-10.1) 9.3 mg/dL (8.5-10.1) Magnesium Level 2.4 mg/dL (1.8-2.4) Glucose (Fingerstick) 190 mg/dL (70-99) H 290 mg/dL (70-99) H White Blood Count 6.7 x10^3/uL (4.0-11.0) Red Blood Count 4.48 x10^6/uL (3.50-5.40) Hemoglobin 13.8 g/dL (12.0-15.5) Hematocrit 42.4 % (36.0-47.0) Mean Corpuscular Volume 95 fL (79-100) Mean Corpuscular Hemoglobin 31 pg (25-35) Mean Corpuscular Hemoglobin Concent 33 g/dL (31-37) Red Cell Distribution Width 13.7 % (11.5-14.5) Platelet Count 207 x10^3/uL (140-400) Neutrophils (%) (Auto) 70 % (31-73) Lymphocytes (%) (Auto) 18 % (24-48) L Monocytes (%) (Auto) 10 % (0-9) H Eosinophils (%) (Auto) 2 % (0-3) Basophils (%) (Auto) 1 % (0-3) Neutrophils # (Auto) 4.6 x10^3uL (1.8-7.7) Lymphocytes # (Auto) 1.2 x10^3/uL (1.0-4.8) Monocytes # (Auto) 0.7 x10^3/uL (0.0-1.1) Eosinophils # (Auto) 0.1 x10^3/uL (0.0-0.7) Basophils # (Auto) 0.0 x10^3/uL (0.0-0.2) BUN/Creatinine Ratio 22 (6-20) H Total Bilirubin 0.6 mg/dL (0.2-1.0) Aspartate Amino Transferase (AST) 26 U/L (15-37) Alanine Aminotransferase (ALT) 19 U/L (14-59) Alkaline Phosphatase 78 U/L (46-116) Total Protein 7.9 g/dL (6.4-8.2) Albumin 3.2 g/dL (3.4-5.0) L Albumin/Globulin Ratio 0.7 (1.0-1.7) L Test 04/07/19 16:52 04/07/19 19:12 Glucose (Fingerstick) 215 mg/dL (70-99) H 244 mg/dL (70-99) H Current Medications: Meds: Current Medications Medications (Trade) Dose Ordered Sig/Earnest Route PRN Reason Start Time Stop Time Status Last Admin Dose Admin Potassium Bicarbonate (Potassium Effervescent Tablet) 40 meq 1X ONCE PEG 04/07/19 07:00 04/07/19 07:05 DC 04/07/19 07:50 I have reviewed the current psychotropics carefully including drug interactions. Risk benefit ratio favors no change other than as noted in my dictated progress note. Diagnosis: Problems: (1) Anxiety disorder (2) Major depressive disorder, recurrent episode KADEN ROSSI MD Apr 07, 2019 21:51
[2019-04-08] MEDS: LEVOTHYROXINE 125 MCG TABLET PEG SCH (05:25)
[2019-04-08 05:54] VITALS: BP 136/66
[2019-04-08 07:01] LABS: BASO % 1 % (0-3); EOS # 0.1 x10^3/uL (0.0-0.7); EOS % 2 % (0-3); HEMATOCRIT 41.4 % (36.0-47.0); HEMOGLOBIN 13.5 g/dL (12.0-15.5); LYMPH # 1.1 x10^3/uL (1.0-4.8); LYMPH % 24 % (24-48); MEAN CORPUSCULAR HEMOGLOBIN 31 pg (25-35); MEAN CORPUSCULAR HGB CONC 33 g/dL (31-37); MEAN CORPUSCULAR VOLUME 95 fL (79-100); MONO # 0.6 x10^3/uL (0.0-1.1); MONO % 12 % (0-9); NEUT # 2.9 x10^3uL (1.8-7.7); NEUT % 62 % (31-73); PLATELET COUNT 169 x10^3/uL (140-400); RED BLOOD COUNT 4.37 x10^6/uL (3.50-5.40); RED CELL DISTRIBUTION WIDTH 13.8 % (11.5-14.5); WHITE BLOOD COUNT 4.7 x10^3/uL (4.0-11.0)
[2019-04-08 07:34] LABS: ALBUMIN 3.1 g/dL (3.4-5.0); ALBUMIN/GLOBULIN RATIO 0.8 (1.0-1.7); ALK PHOS 66 U/L (46-116); ALT (SGPT) 20 U/L (14-59); ANION GAP 6 (6-14); AST (SGOT) 19 U/L (15-37); BLOOD UREA NITROGEN 28 mg/dL (7-20); BUN/CREATININE RATIO 22 (6-20); CALCIUM 8.8 mg/dL (8.5-10.1); CARBON DIOXIDE 42 mmol/L (21-32); CHLORIDE 96 mmol/L (98-107); CREATININE 1.3 mg/dL (0.6-1.0); GFR 41.6; GLUCOSE 190 mg/dL (70-99); SODIUM 144 mmol/L (136-145); TOTAL BILIRUBIN 0.6 mg/dL (0.2-1.0)
[2019-04-08 07:36] LABS: VAL ACID 61 mcg/mL (50-100)
[2019-04-08] MEDS: CETIRIZINE 5 MG/5 ML ORAL SOLUTION. PEG SCH (08:39)
[2019-04-08] MEDS: buPROPion 100 MG TABLET PEG SCH ×3 (08:39→20:33)
[2019-04-08] MEDS: VALPROATE ACID 250 MG/5 ML ORAL SOLUTION PEG SCH ×2 (08:40→20:32)
[2019-04-08] MEDS: INSULIN LISPRO 300 UNITS/3 ML VIAL. SQ SCH ×3 (08:42→16:30)
[2019-04-08] MEDS: METOCLOPRAMIDE 5 MG TABLET PEG SCH ×3 (08:47→16:30)
[2019-04-08] MEDS: FAMOTIDINE 20 MG TABLET PEG SCH ×2 (08:47→16:30)
[2019-04-08] MEDS: amLODIPine BESYLATE 5 MG TABLET PEG SCH (08:47)
[2019-04-08] MEDS: CHOLECALCIFEROL (VITAMIN D3) 1,000 UNIT TABLET PEG SCH (08:47)
[2019-04-08] MEDS: ARIPiprazole 5 MG TABLET PO SCH (08:47)
[2019-04-08] MEDS: ARIPiprazole 15 MG TABLET PEG SCH (08:47)
[2019-04-08] MEDS: GABAPENTIN 250 MG/5 ML ORAL SOLUTION. PEG SCH ×2 (09:00→20:32)
[2019-04-08 16:08] VITALS: BP 119/79
[2019-04-08] MEDS ORDERED: POTASSIUM BICARB 20 MEQ EFFERVESCENT TABLET. PEG ONE (16:30)
[2019-04-08] MEDS: INSULIN GLARGINE SYRINGE. SQ SCH (20:32)
[2019-04-08] MEDS: MELATONIN 3 MG TABLET PEG SCH (20:33)
[2019-04-08] MEDS: rOPINIRole 1 MG TABLET. PEG SCH (20:33)
[2019-04-08] MEDS: ATORVASTATIN CALCIUM 20 MG TABLET PEG SCH (20:33)
[2019-04-08] MEDS: traZODone 50 MG TABLET. PEG SCH (20:33)
[2019-04-08] MEDS: PRAZOSIN 1 MG CAPSULE. PO SCH (20:34)
--- NOTE | 2019-04-08 20:34 | PDOC ---
Exam Note: Bradford Note: Please also refer to the separate dictated note~for this date of service dictated separately.~Patient seen individually. Discussed the patient with Nursing staff reviewed the chart.~Reviewed interim history and current functioning. Reviewed vital signs,~Labs/ Radiology~and current medications noted below. Continue current treatment with the changes noted in the dictated addendum note Assessment: Vital Signs/I&O: Vital Signs Date Time Temp Pulse Resp B/P (MAP) Pulse Ox O2 Delivery O2 Flow Rate FiO2 04/08/19 16:08 97.5 97 16 119/79 (92) 95 04/07/19 15:48 94.0 04/03/19 16:01 Room Air I & O 0 04/07/19 04/07/19 04/08/19 15:00 23:00 07:00 Intake Total 0 ml Balance 0 ml Labs: Laboratory Tests Test 04/08/19 06:42 04/08/19 07:12 04/08/19 12:31 04/08/19 16:35 White Blood Count 4.7 x10^3/uL (4.0-11.0) Red Blood Count 4.37 x10^6/uL (3.50-5.40) Hemoglobin 13.5 g/dL (12.0-15.5) Hematocrit 41.4 % (36.0-47.0) Mean Corpuscular Volume 95 fL (79-100) Mean Corpuscular Hemoglobin 31 pg (25-35) Mean Corpuscular Hemoglobin Concent 33 g/dL (31-37) Red Cell Distribution Width 13.8 % (11.5-14.5) Platelet Count 169 x10^3/uL (140-400) Neutrophils (%) (Auto) 62 % (31-73) Lymphocytes (%) (Auto) 24 % (24-48) Monocytes (%) (Auto) 12 % (0-9) H Eosinophils (%) (Auto) 2 % (0-3) Basophils (%) (Auto) 1 % (0-3) Neutrophils # (Auto) 2.9 x10^3uL (1.8-7.7) Lymphocytes # (Auto) 1.1 x10^3/uL (1.0-4.8) Monocytes # (Auto) 0.6 x10^3/uL (0.0-1.1) Eosinophils # (Auto) 0.1 x10^3/uL (0.0-0.7) Basophils # (Auto) 0.0 x10^3/uL (0.0-0.2) Sodium Level 144 mmol/L (136-145) Potassium Level 3.0 mmol/L (3.5-5.1) L Chloride Level 96 mmol/L (98-107) L Carbon Dioxide Level 42 mmol/L (21-32) H Anion Gap 6 (6-14) Blood Urea Nitrogen 28 mg/dL (7-20) H Creatinine 1.3 mg/dL (0.6-1.0) H Estimated GFR (Cockcroft-Gault) 41.6 BUN/Creatinine Ratio 22 (6-20) H Glucose Level 190 mg/dL (70-99) H Calcium Level 8.8 mg/dL (8.5-10.1) Total Bilirubin 0.6 mg/dL (0.2-1.0) Aspartate Amino Transferase (AST) 19 U/L (15-37) Alanine Aminotransferase (ALT) 20 U/L (14-59) Alkaline Phosphatase 66 U/L (46-116) Total Protein 7.0 g/dL (6.4-8.2) Albumin 3.1 g/dL (3.4-5.0) L Albumin/Globulin Ratio 0.8 (1.0-1.7) L Valproic Acid Level 61 mcg/mL (50-100) Valproic Acid Last Dose Date 04/07/19 Valproic Acid Last Dose Time 2100 Glucose (Fingerstick) 180 mg/dL (70-99) H 237 mg/dL (70-99) H 232 mg/dL (70-99) H Test 04/08/19 19:14 Glucose (Fingerstick) 266 mg/dL (70-99) H Current Medications: Meds: Current Medications Medications (Trade) Dose Ordered Sig/Earnest Route PRN Reason Start Time Stop Time Status Last Admin Dose Admin Potassium Bicarbonate (Potassium Effervescent Tablet) 40 meq 1X ONCE PEG 04/08/19 16:30 04/08/19 16:37 DC 04/08/19 16:30 I have reviewed the current psychotropics carefully including drug interactions. Risk benefit ratio favors no change other than as noted in my dictated progress note. Diagnosis: Problems: (1) Anxiety disorder (2) Major depressive disorder, recurrent episode KADEN ROSSI MD Apr 08, 2019 20:34
[2019-04-08] MEDS ORDERED: POTASSIUM BICARB 20 MEQ EFFERVESCENT TABLET. PEG SCH (21:00)
--- NOTE | 2019-04-09 01:01 | PN ---
DATE: 04/06/2019 PSYCHIATRIC PROGRESS NOTE This late entry 04/06 covers elements not covered in my initial note. SUBJECTIVE: I met with the patient individually. The patient slept 6-1/4 hours previous night. She has been somewhat anxious since her potassium is low. Dr. Up/Dr. Fowler are addressing this. REVIEW OF SYSTEMS: Ambulation impaired. No CV, , pulmonary, eye system symptoms on review. MENTAL STATUS EXAM: Reasonably oriented. Speech is coherent, has some latency. Abstraction fair, computation impaired, language function intact. Mood and affect somewhat withdrawn. LABORATORY DATA: Reviewed. IMPRESSION: Unchanged from initial note. PLAN: No change from initial note. The patient denies active hallucinations for most of the time, but has brief episodes of these, but denies she would act out on the command hallucinations. MAN Lennox ROSSI MD DR: LAWSON/dimitri JOB#: [id number] / [id number]
--- NOTE | 2019-04-09 01:23 | PN ---
DATE: 04/07/2019 PSYCHIATRIC PROGRESS NOTE This late entry 04/07/2019 covers elements not covered in my initial note. SUBJECTIVE: I met with the patient individually. The patient slept 7 hours the previous night. Overall, the patient is doing better. She states she has some distant hallucinations, but no intense command hallucinations. REVIEW OF SYSTEMS: No CV, , pulmonary, eye system symptoms on review. MENTAL STATUS EXAM: Reasonably oriented. Speech is coherent, abstraction fair, computation impaired, language function intact. Mood and affect still somewhat withdrawn, but improved. LABORATORY DATA: Reviewed. IMPRESSION: Unchanged from initial note. PLAN: No change from initial note. MAN Lennox ROSSI MD DR: LAWSON/idmitri JOB#: [id number] / [id number]
[2019-04-09] MEDS: LEVOTHYROXINE 125 MCG TABLET PEG SCH (05:30)
[2019-04-09 06:10] VITALS: BP 181/70
[2019-04-09 06:35] LABS: CALCIUM 8.9 mg/dL (8.5-10.1); CREATININE 1.2 mg/dL (0.6-1.0); GFR 45.7
[2019-04-09 06:45] LABS: POTASSIUM 2.7 mmol/L (3.5-5.1)
[2019-04-09] MEDS ORDERED: POTASSIUM BICARB 20 MEQ EFFERVESCENT TABLET. PEG ONE ×3 (08:00→11:00)
[2019-04-09] MEDS: ARIPiprazole 15 MG TABLET PEG SCH (08:32)
[2019-04-09] MEDS: VALPROATE ACID 250 MG/5 ML ORAL SOLUTION PEG SCH ×2 (08:32→20:16)
[2019-04-09] MEDS: CHOLECALCIFEROL (VITAMIN D3) 1,000 UNIT TABLET PEG SCH (08:33)
[2019-04-09] MEDS: amLODIPine BESYLATE 5 MG TABLET PEG SCH (08:33)
[2019-04-09] MEDS: METOCLOPRAMIDE 5 MG TABLET PEG SCH ×3 (08:33→16:21)
[2019-04-09] MEDS: buPROPion 100 MG TABLET PEG SCH ×3 (08:34→20:17)
[2019-04-09] MEDS: FAMOTIDINE 20 MG TABLET PEG SCH ×2 (08:35→16:21)
[2019-04-09] MEDS: ARIPiprazole 5 MG TABLET PO SCH (08:35)
[2019-04-09] MEDS: CETIRIZINE 5 MG/5 ML ORAL SOLUTION. PEG SCH (08:35)
[2019-04-09] MEDS: GABAPENTIN 250 MG/5 ML ORAL SOLUTION. PEG SCH ×2 (08:35→20:15)
[2019-04-09] MEDS: POTASSIUM CHLORIDE 20 MEQ TABLET.ER. PO SCH ×3 (08:36→10:00)
[2019-04-09] MEDS: INSULIN LISPRO 300 UNITS/3 ML VIAL. SQ SCH ×3 (08:38→17:28)
[2019-04-09] MEDS ORDERED: POTASSIUM CHLORIDE IV ONE (09:00)
[2019-04-09] MEDS ORDERED: POTASSIUM CHLORIDE 40 MEQ PEG ONE ×3 (11:00→20:00)
[2019-04-09 12:30] LABS: CALCIUM 9.3 mg/dL (8.5-10.1); CREATININE 1.3 mg/dL (0.6-1.0); GFR 41.6; POTASSIUM 3.7 mmol/L (3.5-5.1)
[2019-04-09] MEDS ORDERED: POTASSIUM CHLORIDE 20 MEQ TABLET.ER. PO ONE ×2 (13:30→19:30)
[2019-04-09 16:05] VITALS: BP 118/71
[2019-04-09] MEDS: PRAZOSIN 1 MG CAPSULE. PO SCH (20:16)
[2019-04-09] MEDS: rOPINIRole 1 MG TABLET. PEG SCH (20:16)
[2019-04-09] MEDS: traZODone 50 MG TABLET. PEG SCH (20:17)
[2019-04-09] MEDS: MELATONIN 3 MG TABLET PEG SCH (20:17)
[2019-04-09] MEDS: ATORVASTATIN CALCIUM 20 MG TABLET PEG SCH (20:17)
--- NOTE | 2019-04-09 20:52 | PDOC ---
Exam Note: Bradford Note: Please also refer to the separate dictated note~for this date of service dictated separately.~Patient seen individually. Discussed the patient with Nursing staff reviewed the chart.~Reviewed interim history and current functioning. Reviewed vital signs,~Labs/ Radiology~and current medications noted below. Continue current treatment with the changes noted in the dictated addendum note Assessment: Vital Signs/I&O: Vital Signs Date Time Temp Pulse Resp B/P (MAP) Pulse Ox O2 Delivery O2 Flow Rate FiO2 04/09/19 20:16 84 118/71 04/09/19 16:05 98.1 16 94 04/07/19 15:48 94.0 04/03/19 16:01 Room Air I & O 04/08/19 04/08/19 04/09/19 15:00 23:00 07:00 Intake Total 600 ml 400 ml Balance 600 ml 400 ml Labs: Laboratory Tests Test 04/09/19 05:57 04/09/19 08:20 04/09/19 11:54 04/09/19 12:13 Sodium Level 142 mmol/L (136-145) 142 mmol/L (136-145) Potassium Level 2.7 mmol/L (3.5-5.1) *L 3.7 mmol/L (3.5-5.1) # Chloride Level 96 mmol/L (98-107) L 97 mmol/L (98-107) L Carbon Dioxide Level 42 mmol/L (21-32) H 39 mmol/L (21-32) H Anion Gap 4 (6-14) L 6 (6-14) Blood Urea Nitrogen 27 mg/dL (7-20) H 26 mg/dL (7-20) H Creatinine 1.2 mg/dL (0.6-1.0) H 1.3 mg/dL (0.6-1.0) H Estimated GFR (Cockcroft-Gault) 45.7 41.6 Glucose Level 185 mg/dL (70-99) H 250 mg/dL (70-99) H Calcium Level 8.9 mg/dL (8.5-10.1) 9.3 mg/dL (8.5-10.1) Glucose (Fingerstick) 198 mg/dL (70-99) H 248 mg/dL (70-99) H Test 04/09/19 16:58 04/09/19 19:12 Glucose (Fingerstick) 216 mg/dL (70-99) H 226 mg/dL (70-99) H Current Medications: Meds: Current Medications Medications (Trade) Dose Ordered Sig/Earnest Route PRN Reason Start Time Stop Time Status Last Admin Dose Admin Potassium Bicarbonate (Potassium Effervescent Tablet) 20 meq BID PEG 04/08/19 21:00 04/09/19 07:38 DC 04/08/19 20:33 Potassium Chloride (Klor-Con) 40 meq Q1HR PO 04/09/19 08:00 04/09/19 10:01 DC 04/09/19 09:59 Non-Formulary Medication 1 ea 1X ONCE PEG 04/09/19 11:00 04/09/19 11:01 DC 04/09/19 11:36 Non-Formulary Medication 1 ea 1X ONCE PEG 04/09/19 16:00 04/09/19 16:03 DC 04/09/19 16:21 Non-Formulary Medication 1 ea 1X ONCE PEG 04/09/19 20:00 04/09/19 20:01 DC 04/09/19 20:15 I have reviewed the current psychotropics carefully including drug interactions. Risk benefit ratio favors no change other than as noted in my dictated progress note. Diagnosis: Problems: (1) Anxiety disorder (2) Major depressive disorder, recurrent episode KADEN ROSSI MD Apr 09, 2019 20:52
[2019-04-09] MEDS: INSULIN GLARGINE SYRINGE. SQ SCH (20:53)
--- NOTE | 2019-04-09 22:34 | PN ---
DATE: 04/08/2019 PSYCHIATRIC PROGRESS NOTE This late entry 04/08/2019 covers elements not covered in my initial note. SUBJECTIVE: I met with the patient evening of 04/08/2019. The patient slept reasonably previous night. Potassium is still low, will defer to Dr. Up. REVIEW OF SYSTEMS: Ambulation impaired, in wheelchair. No CV, , pulmonary, eye system symptoms on review. MENTAL STATUS EXAMINATION: The patient is reasonably oriented. Speech is coherent, abstraction fair, computation impaired, language function intact. Mood and affect showing improvement. She denies active hallucinations or suicidal ideation as I questioned her at length. LABORATORY DATA: Reviewed. IMPRESSION: Unchanged from initial note. PLAN: No change from initial note. MAN Lennox ROSSI MD DR: LAWSON/dimitri JOB#: [id number] / [id number]
[2019-04-10] MEDS: LEVOTHYROXINE 125 MCG TABLET PEG SCH (05:33)
[2019-04-10 05:43] VITALS: BP 130/84
[2019-04-10 06:40] LABS: CALCIUM 8.9 mg/dL (8.5-10.1); CREATININE 1.1 mg/dL (0.6-1.0); GFR 50.5; POTASSIUM 3.3 mmol/L (3.5-5.1)
[2019-04-10] MEDS: CHOLECALCIFEROL (VITAMIN D3) 1,000 UNIT TABLET PEG SCH (08:38)
[2019-04-10] MEDS: amLODIPine BESYLATE 5 MG TABLET PEG SCH (08:38)
[2019-04-10] MEDS: VALPROATE ACID 250 MG/5 ML ORAL SOLUTION PEG SCH ×2 (08:38→20:13)
[2019-04-10] MEDS: ARIPiprazole 5 MG TABLET PO SCH (08:39)
[2019-04-10] MEDS: FAMOTIDINE 20 MG TABLET PEG SCH ×2 (08:39→17:02)
[2019-04-10] MEDS: ARIPiprazole 15 MG TABLET PEG SCH (08:39)
[2019-04-10] MEDS: buPROPion 100 MG TABLET PEG SCH ×3 (08:39→20:14)
[2019-04-10] MEDS: CETIRIZINE 5 MG/5 ML ORAL SOLUTION. PEG SCH (08:40)
[2019-04-10] MEDS: GABAPENTIN 250 MG/5 ML ORAL SOLUTION. PEG SCH ×2 (08:40→20:13)
[2019-04-10] MEDS: METOCLOPRAMIDE 5 MG TABLET PEG SCH ×3 (08:40→17:02)
[2019-04-10] MEDS: INSULIN LISPRO 300 UNITS/3 ML VIAL. SQ SCH ×3 (08:43→17:07)
[2019-04-10 15:46] VITALS: BP 124/81
[2019-04-10] MEDS: INSULIN GLARGINE SYRINGE. SQ SCH (20:12)
[2019-04-10] MEDS: POTASSIUM CHLORIDE PEG SCH (20:12)
[2019-04-10] MEDS: MELATONIN 3 MG TABLET PEG SCH (20:14)
[2019-04-10] MEDS: PRAZOSIN 1 MG CAPSULE. PO SCH (20:14)
[2019-04-10] MEDS: rOPINIRole 1 MG TABLET. PEG SCH (20:14)
[2019-04-10] MEDS: ATORVASTATIN CALCIUM 20 MG TABLET PEG SCH (20:15)
[2019-04-10] MEDS: traZODone 50 MG TABLET. PEG SCH (20:15)
--- NOTE | 2019-04-10 20:34 | PDOC ---
Exam Note: Bradford Note: Please also refer to the separate dictated note~for this date of service dictated separately.~Patient seen individually. Discussed the patient with Nursing staff reviewed the chart.~Reviewed interim history and current functioning. Reviewed vital signs,~Labs/ Radiology~and current medications noted below. Continue current treatment with the changes noted in the dictated addendum note Assessment: Vital Signs/I&O: Vital Signs Date Time Temp Pulse Resp B/P (MAP) Pulse Ox O2 Delivery O2 Flow Rate FiO2 04/10/19 20:14 82 124/81 04/10/19 15:46 97.7 18 100 04/07/19 15:48 94.0 I & O 04/09/19 04/09/19 04/10/19 15:00 23:00 07:00 Intake Total 800 ml 540 ml Balance 800 ml 540 ml Labs: Laboratory Tests Test 04/10/19 06:24 04/10/19 07:21 04/10/19 11:56 04/10/19 16:42 Sodium Level 145 mmol/L (136-145) Potassium Level 3.3 mmol/L (3.5-5.1) L Chloride Level 101 mmol/L (98-107) Carbon Dioxide Level 37 mmol/L (21-32) H Anion Gap 7 (6-14) Blood Urea Nitrogen 26 mg/dL (7-20) H Creatinine 1.1 mg/dL (0.6-1.0) H Estimated GFR (Cockcroft-Gault) 50.5 Glucose Level 199 mg/dL (70-99) H Calcium Level 8.9 mg/dL (8.5-10.1) Glucose (Fingerstick) 211 mg/dL (70-99) H 271 mg/dL (70-99) H 191 mg/dL (70-99) H Test 04/10/19 19:12 Glucose (Fingerstick) 223 mg/dL (70-99) H Current Medications: Meds: Current Medications Medications (Trade) Dose Ordered Sig/Earnest Route PRN Reason Start Time Stop Time Status Last Admin Dose Admin Non-Formulary Medication 1 ea TID PEG 04/10/19 21:00 04/10/19 20:12 I have reviewed the current psychotropics carefully including drug interactions. Risk benefit ratio favors no change other than as noted in my dictated progress note. Diagnosis: Problems: (1) Anxiety disorder (2) Major depressive disorder, recurrent episode KADEN ROSSI MD Apr 10, 2019 20:34
[2019-04-10] MEDS ORDERED: POTASSIUM CHLORIDE 20 MEQ PACKET. FT SCH (21:00)
--- NOTE | 2019-04-10 21:23 | PN ---
DATE: 04/09/2019 PSYCHIATRIC PROGRESS NOTE This late entry 04/09/2019 covers elements not covered in my initial note. SUBJECTIVE: I met with the patient evening of 04/09/2019. Discussed with JOSETTE Sal, nursing staff. The patient slept 7-3/4 hours previous night. She still has some hypokalemia. Dr. Up is addressing this. I did return a call from Dr. Jackson, her [facility] who may be involved with her domiciliary placement post-discharge if return home fails. Discussed the patient's diagnosis, the psychotropics progress at some length. Also discussed with [facility] staff about discharge plans. The patient denies active hallucinations. REVIEW OF SYSTEMS: Ambulation impaired. No CV, , pulmonary, eye system symptoms on review. MENTAL STATUS EXAM: Reasonably oriented. Speech has some latency, coherent. Abstraction fair, computation impaired, language function intact, attention span short. Mood and affect less withdrawn. Denies active psychotic symptoms, suicidal or homicidal ideation. Denies active hallucinations. LABORATORY DATA: Reviewed. IMPRESSION: Schizoaffective disorder, bipolar type, mixed with psychotic features; history of major depressive disorder with psychotic features, personality disorder, unspecified. Rest unchanged. PLAN: No change from initial note. Continue current psychotropics. We were planning a discharge on 04/10/2019, but we will check with Dr. Up on her recalcitrant hypokalemia and whether it is safe for this to be addressed as an outpatient. KADEN ROSSI MD DR: LAWSON/dimitri JOB#: [id number] / [id number]
[2019-04-10] MEDS ORDERED: ARIP5TAB13 PEG (23:43)
[2019-04-10] MEDS ORDERED: ARIP30TA4 PEG (23:43)
[2019-04-10] MEDS ORDERED: CETI-203 PEG (23:45)
[2019-04-10] MEDS ORDERED: LORA2ORA8 SL (23:47)
[2019-04-10] MEDS ORDERED: MAG-115 PEG (23:52)
[2019-04-10] MEDS ORDERED: MAGN2400 PEG (23:53)
[2019-04-10] MEDS ORDERED: PRAZ2CAP2 PEG (23:55)
[2019-04-11] MEDS ORDERED: VALP250S18 PEG (00:02)
[2019-04-11] MEDS ORDERED: BUPR100T7 PEG (00:04)
[2019-04-11] MEDS ORDERED: FLUV100T2 PEG (00:07)
[2019-04-11] MEDS ORDERED: TRAZ-120 PEG ×2 (00:08→00:09)
[2019-04-11 05:59] VITALS: BP 112/68
[2019-04-11] MEDS ORDERED: POTASSIUM CHLORIDE IV ONE (06:00)
[2019-04-11] MEDS: LEVOTHYROXINE 125 MCG TABLET PEG SCH (06:16)
[2019-04-11] MEDS: FAMOTIDINE 20 MG TABLET PEG SCH ×2 (07:30→13:39)
[2019-04-11] MEDS: METOCLOPRAMIDE 5 MG TABLET PEG SCH ×3 (07:30→17:53)
[2019-04-11] MEDS: INSULIN LISPRO 300 UNITS/3 ML VIAL. SQ SCH ×3 (07:30→17:54)
[2019-04-11 08:27] LABS: CALCIUM 8.7 mg/dL (8.5-10.1); CREATININE 1.1 mg/dL (0.6-1.0); GFR 50.5; POTASSIUM 3.5 mmol/L (3.5-5.1)
[2019-04-11] MEDS: POTASSIUM CHLORIDE PEG SCH ×3 (09:00→20:42)
[2019-04-11] MEDS: buPROPion 100 MG TABLET PEG SCH ×3 (09:00→20:44)
[2019-04-11] MEDS: traMADol 50 MG TABLET PEG PRN (09:08)
[2019-04-11] MEDS: VALPROATE ACID 250 MG/5 ML ORAL SOLUTION PEG SCH ×2 (13:37→20:42)
[2019-04-11] MEDS: CETIRIZINE 5 MG/5 ML ORAL SOLUTION. PEG SCH (13:37)
[2019-04-11] MEDS: GABAPENTIN 250 MG/5 ML ORAL SOLUTION. PEG SCH ×2 (13:37→20:41)
[2019-04-11] MEDS: amLODIPine BESYLATE 5 MG TABLET PEG SCH (13:39)
[2019-04-11] MEDS: ARIPiprazole 15 MG TABLET PEG SCH (13:40)
[2019-04-11] MEDS: ARIPiprazole 5 MG TABLET PO SCH (13:40)
[2019-04-11] MEDS: CHOLECALCIFEROL (VITAMIN D3) 1,000 UNIT TABLET PEG SCH (13:41)
[2019-04-11 14:28] VITALS: BP 127/79
[2019-04-11 15:40] VITALS: BP 137/82
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
[2019-04-11] MEDS: ATORVASTATIN CALCIUM 20 MG TABLET PEG SCH (20:42)
[2019-04-11] MEDS: traZODone 50 MG TABLET. PEG SCH (20:42)
[2019-04-11] MEDS: rOPINIRole 1 MG TABLET. PEG SCH (20:43)
[2019-04-11] MEDS: MELATONIN 3 MG TABLET PEG SCH (20:43)
[2019-04-11] MEDS: PRAZOSIN 1 MG CAPSULE. PO SCH (20:43)
[2019-04-11] MEDS: INSULIN GLARGINE SYRINGE. SQ SCH (20:46)
--- NOTE | 2019-04-11 21:39 | PN ---
DATE: 04/10/2019 PSYCHIATRIC PROGRESS NOTE This late entry 04/10/2019 covers elements not covered in my initial note. SUBJECTIVE: I met with the patient in the evening. Doron Oconnell RN, the patient slept 7 hours previous night. She denies any hallucinations. Denies suicidal ideation. When I questioned her at length, she at times, she hears a voice, but it is not telling her to do anything and she would not act out on that. I have discussed with [facility] staff who is coordinating with the [facility] for transition. REVIEW OF SYSTEMS: Ambulation impaired. No CV, , pulmonary, eye system symptoms on review. MENTAL STATUS EXAM: Reasonably oriented. Speech is coherent, has some latency. Abstraction fair, computation impaired, language function intact. Mood and affect somewhat withdrawn, but improved. LABORATORY DATA: Reviewed. IMPRESSION: Bipolar disorder, mixed with psychotic features versus major depressive disorder with psychotic features. Rest unchanged including personality disorder. PLAN: Continue current psychotropics including Depakene 625 b.i.d., level therapeutic at 61. Maintain Minipress, __ symptoms. Abilify, melatonin, Wellbutrin along with trazodone p.r.n., gabapentin 500 mg b.i.d. MAN Lennox ROSSI MD DR: LAWSON/dimitri JOB#: [id number] / [id number]
[2019-04-12] MEDS: LEVOTHYROXINE 125 MCG TABLET PEG SCH (05:28)
[2019-04-12] MEDS ORDERED: POTASSIUM CHLORIDE IV ONE (06:00)
[2019-04-12 06:02] VITALS: BP 129/83
[2019-04-12] MEDS: POTASSIUM CHLORIDE PEG SCH (07:31)
[2019-04-12] MEDS: CETIRIZINE 5 MG/5 ML ORAL SOLUTION. PEG SCH (07:32)
[2019-04-12] MEDS: GABAPENTIN 250 MG/5 ML ORAL SOLUTION. PEG SCH (07:32)
[2019-04-12] MEDS: FAMOTIDINE 20 MG TABLET PEG SCH (07:33)
[2019-04-12] MEDS: buPROPion 100 MG TABLET PEG SCH (07:34)
[2019-04-12] MEDS: CHOLECALCIFEROL (VITAMIN D3) 1,000 UNIT TABLET PEG SCH (07:34)
[2019-04-12 07:35] VITALS: BP 129/83
[2019-04-12] MEDS: amLODIPine BESYLATE 5 MG TABLET PEG SCH (07:35)
[2019-04-12] MEDS: ARIPiprazole 5 MG TABLET PO SCH (07:35)
[2019-04-12] MEDS: VALPROATE ACID 250 MG/5 ML ORAL SOLUTION PEG SCH (07:35)
[2019-04-12] MEDS: METOCLOPRAMIDE 5 MG TABLET PEG SCH (07:36)
[2019-04-12] MEDS: ARIPiprazole 15 MG TABLET PEG SCH (07:36)
[2019-04-12] MEDS: INSULIN LISPRO 300 UNITS/3 ML VIAL. SQ SCH (07:43)
== END 2019-04-12 08:45 | disposition home or self-care (01) | DRG 885 ==
LOC: GEROPSY 18:57
PROVIDERS: ADMIT Psychiatry & Neurology Psychiatry; ATTEND Psychiatry & Neurology Psychiatry
DX: F33.3 Major depressive disorder, recurrent, severe with psychotic symptoms (principal); K21.9 Gastro-esophageal reflux disease without esophagitis; E03.9 Hypothyroidism, unspecified; F43.10 Post-traumatic stress disorder, unspecified; N18.9 Chronic kidney disease, unspecified; E11.22 Type 2 diabetes mellitus with diabetic chronic kidney disease; I12.9 Hypertensive chronic kidney disease with stage 1 through stage 4 chronic kidney disease, or unspecified chronic kidney disease; J45.909 Unspecified asthma, uncomplicated; F41.1 Generalized anxiety disorder; R13.10 Dysphagia, unspecified; E87.6 Hypokalemia; F42.9 Obsessive-compulsive disorder, unspecified; F60.9 Personality disorder, unspecified; H91.90 Unspecified hearing loss, unspecified ear; S61.519A Laceration without foreign body of unspecified wrist, initial encounter; Y93.89 Activity, other specified; Y92.89 Other specified places as the place of occurrence of the external cause; Y99.8 Other external cause status; Z88.6 Allergy status to analgesic agent; Z88.5 Allergy status to narcotic agent; Z88.0 Allergy status to penicillin; Z88.8 Allergy status to other drugs, medicaments and biological substances; Z91.018 Allergy to other foods; Z79.899 Other long term (current) drug therapy; Z93.1 Gastrostomy status; Z91.5 Personal history of self-harm; Z91.410 Personal history of adult physical and sexual abuse; Z87.820 Personal history of traumatic brain injury
CPT/HCPCS: 36415; 36600; 70450; 74220; 80048; 80053; 80061; 80164; 81001; 82140; 82306; 82607; 82803; 82947; 83036; 83540; 83550; 83735; 84436; 84443; 84480; 85025; 85027; 86592; 87086; 93005; J1815; J8597; 97110; 97116; 97530

== ENCOUNTER 2019-06-14 00:15 | Inpatient (IN) | payer OTHER ==
[~2019-06-14] VITALS: Ht 167.6 cm; Wt 127.5 kg
[~2019-06-14 00:15] MED LIST: AMLO10TA8 PEG; ARIP30TA4 PEG; ARIP5TAB13 PEG; ASEN10TA9 SL; ATOR20TA58 PEG; ATOR40TA59 PO; BENZ0.5T32 PEG; BUPR100T7 PEG; CETI-203 PEG; CETI10TA16 PEG; CHOL10003 PEG; CLOT15CR4 TP; FLUO10CA14 PO; FLUO20SO2 PO; FLUV100T2 PEG; GABA-586 PO; GABA250S6 PEG; INSU100I13 SQ; INSU100V31 SQ; LEVO125T5 PEG; LORA2ORA8 SL; MAG-115 PEG; MAGN24003 PEG; MELA3TAB56 PEG; METF500T16 PEG; METO10TA81 PEG; MIRT30TA PEG; POLY17PO5 PEG; POTA20TA4 PEG; PRAZ2CAP2 PEG; RANI150C PO; RANI15SY PEG; ROPI1TAB4 PEG; TRAM50TA PEG; TRAZ-120 PEG; VALP250S18 PEG
[2019-06-14 00:18] VITALS: BP 139/84
[2019-06-14] MEDS ORDERED: ACETAMINOPHEN 325 MG TABLET PO PRN (00:45)
[2019-06-14] MEDS ORDERED: MAGNESIUM HYDROXIDE 2,400 MG/30 ML ORAL.SUSP. PO PRN (00:45)
[2019-06-14] MEDS ORDERED: METHYL SALICYLATE/MENTHOL TOPICAL OINTMENT 57GM TUBE. TP PRN (00:45)
[2019-06-14] MEDS ORDERED: MAG HYDROX/AL HYDROX/SIMETH 30 ML ORAL.SUSP PO PRN (00:45)
[2019-06-14] MEDS ORDERED: POTA20TA4 PEG (01:30)
[2019-06-14] MEDS ORDERED: METF500T16 PEG (01:30)
[2019-06-14] MEDS ORDERED: VENL100T PEG (01:30)
[2019-06-14] MEDS ORDERED: DEXT5TAB27 PEG (01:30)
[2019-06-14] MEDS ORDERED: TRAM50TA PEG (01:30)
--- NOTE | 2019-06-14 05:26 | EKG ---
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
[2019-06-14 05:33] LABS: BACTERIA,URINE FEW /HPF (0-FEW); BILIRUBIN,URINE NEG (NEG); CLARITY,URINE CLEAR; COLOR,URINE YELLOW; GLUCOSE,URINE NEG (NEG); NITRITE,URINE NEG (NEG); RBC,URINE 0 /HPF (0-2); SQUAMOUS EPITHELIAL CELL,UR FEW /LPF; UROBILINOGEN,URINE 0.2 mg/dL (0.2 mg/dL)
[2019-06-14 05:34] VITALS: BP 168/91
[2019-06-14 07:41] LABS: ALBUMIN 3.3 g/dL (3.4-5.0); ALBUMIN/GLOBULIN RATIO 0.9 (1.0-1.7); GFR 56.4; MAGNESIUM 1.6 mg/dL (1.8-2.4); POTASSIUM 3.9 mmol/L (3.5-5.1)
[2019-06-14 09:53] LABS: BASO % 1 % (0-3); EOS # 0.1 x10^3/uL (0.0-0.7); EOS % 2 % (0-3); HEMATOCRIT 43.7 % (36.0-47.0); HEMOGLOBIN 14.2 g/dL (12.0-15.5); LYMPH # 1.1 x10^3/uL (1.0-4.8); LYMPH % 24 % (24-48); MEAN CORPUSCULAR HEMOGLOBIN 31 pg (25-35); MEAN CORPUSCULAR HGB CONC 33 g/dL (31-37); MEAN CORPUSCULAR VOLUME 94 fL (79-100); MONO # 0.3 x10^3/uL (0.0-1.1); MONO % 7 % (0-9); NEUT % 66 % (31-73); PLATELET COUNT 187 x10^3/uL (140-400); RED BLOOD COUNT 4.65 x10^6/uL (3.50-5.40); RED CELL DISTRIBUTION WIDTH 17.6 % (11.5-14.5); WHITE BLOOD COUNT 4.6 x10^3/uL (4.0-11.0)
[2019-06-14] MEDS ORDERED: traMADol 50 MG TABLET PEG PRN (11:00)
[2019-06-14] MEDS ORDERED: POLYETHYLENE GLYCOL 3350 17 GM PACKET. PEG PRN (11:00)
[2019-06-14] MEDS ORDERED: ARIP15TA36 PEG (11:08)
[2019-06-14] MEDS ORDERED: ACET160S PEG (11:18)
[2019-06-14] MEDS ORDERED: INSULIN ASPART 6 UNIT SQ SCH (11:30)
[2019-06-14] MEDS ORDERED: METOCLOPRAMIDE 10 MG TABLET PEG SCH (11:30)
[2019-06-14] MEDS: METOCLOPRAMIDE HCL 10 MG/10 ML SOLUTION. PO SCH ×3 (12:20→20:15)
[2019-06-14] MEDS: INSULIN LISPRO 300 UNITS/3 ML VIAL. SQ SCH ×2 (12:21→17:46)
[2019-06-14 13:26] LABS: THYROID STIM HORMONE (TSH) 3.75 uIU/mL (0.358-3.740)
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
[2019-06-14 16:02] VITALS: BP 156/99
[2019-06-14] MEDS ORDERED: NON FORMULARY ITEM (Ranitidine Hcl 150 MG) PEG SCH (16:30)
[2019-06-14] MEDS ORDERED: ACETAMINOPHEN 650 MG/20.3 ML SOLUTION. PEG PRN (17:30)
[2019-06-14] MEDS ORDERED: MELATONIN 3 MG TABLET PEG PRN (17:30)
[2019-06-14] MEDS: metFORMIN 500 MG TABLET PO SCH (17:40)
[2019-06-14] MEDS: AMPHETAMINE PEG SCH (19:36)
[2019-06-14] MEDS: DEXTROAMPHETAMINE PEG SCH (19:36)
[2019-06-14] MEDS: rOPINIRole 1 MG TABLET. PEG SCH (20:15)
[2019-06-14] MEDS: ATORVASTATIN CALCIUM 20 MG TABLET PEG SCH (20:15)
[2019-06-14] MEDS: traZODone 50 MG TABLET. PEG SCH (20:15)
[2019-06-14] MEDS: GABAPENTIN 250 MG/5 ML ORAL SOLUTION. PEG SCH (20:15)
[2019-06-14] MEDS: FAMOTIDINE 20 MG TABLET PO SCH (20:15)
[2019-06-14] MEDS ORDERED: INSULIN GLARGINE HUM REC ANLOG 6 UNIT SQ SCH (21:00)
[2019-06-14] MEDS: INSULIN GLARGINE SYRINGE. SQ SCH (21:26)
--- NOTE | 2019-06-14 21:26 | PDOC ---
Exam Note: Bradford Note: Please also refer to the separate dictated note~for this date of service dictated separately. Discussed the patient with Nursing staff reviewed the chart.~Reviewed interim history and current functioning. Reviewed vital signs,~Labs/ Radiology~and current medications noted below. Continue current treatment with the changes noted in the dictated addendum note Assessment: Vital Signs/I&O: Vital Signs Date Time Temp Pulse Resp B/P (MAP) Pulse Ox O2 Delivery O2 Flow Rate FiO2 06/14/19 16:02 97.6 89 16 156/99 (118) 97 06/14/19 05:34 Room Air Labs: Laboratory Tests Test 06/14/19 04:49 06/14/19 06:50 06/14/19 09:43 06/14/19 11:57 Urine Collection Type Unknown Urine Color Yellow Urine Clarity Clear Urine pH 5.0 Urine Specific Floyd >=1.030 Urine Protein 30 mg/dl (NEG-TRACE) Urine Glucose (UA) Neg mg/dL (NEG) Urine Ketones (Stick) Trace mg/dL (NEG) Urine Blood Neg (NEG) Urine Nitrite Neg (NEG) Urine Bilirubin Neg (NEG) Urine Urobilinogen Dipstick 0.2 mg/dL (0.2 mg/dL) Urine Leukocyte Esterase Trace (NEG) Urine RBC 0 /HPF (0-2) Urine WBC 5-10 /HPF (0-4) Urine Squamous Epithelial Cells Few /LPF Urine Bacteria Few /HPF (0-FEW) Sodium Level 146 mmol/L (136-145) H Potassium Level 3.9 mmol/L (3.5-5.1) Chloride Level 106 mmol/L (98-107) Carbon Dioxide Level 31 mmol/L (21-32) Anion Gap 9 (6-14) Blood Urea Nitrogen 25 mg/dL (7-20) H Creatinine 1.0 mg/dL (0.6-1.0) Estimated GFR (Cockcroft-Gault) 56.4 BUN/Creatinine Ratio 25 (6-20) H Glucose Level 150 mg/dL (70-99) H Calcium Level 9.0 mg/dL (8.5-10.1) Magnesium Level 1.6 mg/dL (1.8-2.4) L Total Bilirubin 2.0 mg/dL (0.2-1.0) H Aspartate Amino Transferase (AST) 19 U/L (15-37) Alanine Aminotransferase (ALT) 26 U/L (14-59) Alkaline Phosphatase 65 U/L (46-116) Total Protein 7.0 g/dL (6.4-8.2) Albumin 3.3 g/dL (3.4-5.0) L Albumin/Globulin Ratio 0.9 (1.0-1.7) L Triglycerides Level 71 mg/dL (0-150) Cholesterol Level 119 mg/dL (0-200) LDL Cholesterol, Calculated 42 mg/dL (0-100) VLDL Cholesterol, Calculated 14 mg/dL (0-40) Non-HDL Cholesterol Calculated 56 mg/dL (0-129) HDL Cholesterol 63 mg/dL (40-60) H Cholesterol/HDL Ratio 1.0 Thyroid Stimulating Hormone (TSH) 3.750 uIU/mL (0.358-3.740) White Blood Count 4.6 x10^3/uL (4.0-11.0) Red Blood Count 4.65 x10^6/uL (3.50-5.40) Hemoglobin 14.2 g/dL (12.0-15.5) Hematocrit 43.7 % (36.0-47.0) Mean Corpuscular Volume 94 fL (79-100) Mean Corpuscular Hemoglobin 31 pg (25-35) Mean Corpuscular Hemoglobin Concent 33 g/dL (31-37) Red Cell Distribution Width 17.6 % (11.5-14.5) H Platelet Count 187 x10^3/uL (140-400) Neutrophils (%) (Auto) 66 % (31-73) Lymphocytes (%) (Auto) 24 % (24-48) Monocytes (%) (Auto) 7 % (0-9) Eosinophils (%) (Auto) 2 % (0-3) Basophils (%) (Auto) 1 % (0-3) Neutrophils # (Auto) 3.0 x10^3uL (1.8-7.7) Lymphocytes # (Auto) 1.1 x10^3/uL (1.0-4.8) Monocytes # (Auto) 0.3 x10^3/uL (0.0-1.1) Eosinophils # (Auto) 0.1 x10^3/uL (0.0-0.7) Basophils # (Auto) 0.0 x10^3/uL (0.0-0.2) Iron Level 165 ug/dL (50-170) Total Iron Binding Capacity 322 ug/dL (250-450) Iron Saturation 51 % (15-34) H Vitamin B12 Level 333 pg/mL (247-911) 25-Hydroxy Vitamin D Total 31.9 ng/mL (30-100) Thyroxine (T4) 9.0 ug/dL (4.5-12.0) Total Triiodothyronine (TT3) 74 ng/dL (71-180) Treponema pallidum Antibody Nonreactive (Nonreactive) Glucose (Fingerstick) 193 mg/dL (70-99) H Test 06/14/19 17:06 06/14/19 19:26 Glucose (Fingerstick) 100 mg/dL (70-99) H 122 mg/dL (70-99) H Current Medications: Meds: Current Medications Medications (Trade) Dose Ordered Sig/Earnest Route PRN Reason Start Time Stop Time Status Last Admin Dose Admin Atorvastatin Calcium (Lipitor) 20 mg QHS PEG 06/14/19 21:00 06/14/19 20:15 Gabapentin (Neurontin Oral Soln) 500 mg BID PEG 06/14/19 21:00 06/14/19 20:15 Metformin HCl (Glucophage) 500 mg BIDWMEALS PO 06/14/19 17:00 06/14/19 17:40 Metoclopramide HCl (Reglan) 5 mg TIDACHC PO 06/14/19 11:30 06/14/19 20:15 Famotidine (Pepcid) 20 mg BID PO 06/14/19 21:00 06/14/19 20:15 Insulin Human Lispro (HumaLOG) 6 units TIDWMEALS SQ 06/14/19 12:00 06/14/19 17:46 Ropinirole HCl (Requip) 1 mg QHS PEG 06/14/19 21:00 06/14/19 20:15 Trazodone HCl (Desyrel) 50 mg QHS PEG 06/14/19 21:00 06/14/19 20:15 I have reviewed the current psychotropics carefully including drug interactions. Risk benefit ratio favors no change other than as noted in my dictated progress note. Diagnosis: Problems: (1) Anxiety disorder (2) Major depressive disorder, recurrent episode (3) Impulse control disorder (4) Personality disorder in adult (5) Psychosis, atypical KADEN ROSSI MD Jun 14, 2019 21:26
--- NOTE | 2019-06-14 21:30 | CONS ---
DATE OF CONSULTATION: 06/14/2019 REASON FOR CONSULTATION: Medical management. HISTORY OF PRESENT ILLNESS: The patient is a 63-year-old female patient, who apparently self-signed to be [facility] on account of suicidal statement and actions. She apparently took lots of melatonin and all this in a background of major depressive disorder. She apparently had a disagreement with her son and took large amount of melatonin and has vomited that. She was admitted for inpatient psychiatric stabilization. 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 She did have a brain tumor that was partially resected. PAST SURGICAL HISTORY: Significant for , resection of her brain tumor, placement of percutaneous endoscopic gastrostomy tube placement. PAST PSYCHIATRIC HISTORY: Significant for posttraumatic stress disorder, major depressive disorder, generalized anxiety disorder. She had made multiple suicide attempts before. ALLERGIES: SHE IS ALLERGIC TO PENICILLIN, PORK AND PORCINE CONTAINING PRODUCTS, ASPIRIN, CODEINE, DOBUTAMINE, IBUPROFEN, LANTUS INSULIN, MEPERIDINE, MORPHINE AND SOLU-MEDROL. FAMILY HISTORY: Her mother is still alive. Her father is . She has 3 younger brothers and seemingly healthy. SOCIAL HISTORY: She is , has 1 son and 1 daughter. She does not smoke, drink alcohol or use any recreational drugs. She was in [employer] for about 4 years. MEDICATIONS: She is currently on following medications: She is on cetirizine 1 mg/1 mL solution she takes 10 mg per feeding tube daily, atorvastatin 20 mg at bedtime, amlodipine besylate 5 mg once a day, tramadol 50 mg 3 times a day, Tylenol 650 mg every 6 hours, gabapentin 250 mg per 5 mL, she takes 500 mg per feeding tube twice a day, trazodone 50 mg at bedtime, venlafaxine 50 mg twice a day, aripiprazole for Abilify 15 mg per feeding tube daily, dextroamphetamine/amphetamine (Adderall) 5 mg twice a day, Requip 1 mg at bedtime, potassium chloride 20 mEq once a day, polyethylene glycol 17 grams daily, ranitidine 150 mg twice a day, metoclopramide for Reglan 5 mg 3 times a day before meals, metformin hydrochloride 5 mg twice a day. She is on NovoLog insulin 6 units before meals and Lantus insulin 6 units at bedtime, levothyroxine sodium 125 mcg once a day, cholecalciferol (vitamin D) 2000 units per feeding tube daily and melatonin 3 mg per feeding tube daily as needed. PHYSICAL EXAMINATION: GENERAL: She was sitting comfortably in her chair, in no apparent respiratory distress. On questioning her, denied any complaint. There was no pallor, jaundice, cyanosis, or thyromegaly. No jugular venous distension. No limb edema. VITAL SIGNS: Her heart rate was 88, blood pressure 168/91, temperature was 96.8, respiratory rate was 16, and oxygen saturation was 94%. HEAD, EYES, EARS, NOSE AND THROAT: Showed normocephalic, atraumatic. NECK: Supple. HEART: Showed normal first and second heart sounds. No gallop, rub or murmur. CHEST: Clear to auscultation. No crepitation or rhonchi. ABDOMEN: Distended, soft, nontender. No guarding or rigidity. No organomegaly. All hernial orifice intact. Bowel sounds normal. NEUROLOGIC: She was awake, alert, responding appropriately. All cranial nerves intact. EXTREMITIES: She moves extremities without difficulty. She ambulates with a walker. LABORATORY DATA: Showed that her white cell count was 4600, hemoglobin 14, hematocrit 44, MCV 94 and platelet count of 187,000. Her serum sodium was 146, potassium 3.9, chloride 106, bicarbonate 31, anion gap of 9, BUN 25, creatinine 1, estimated GFR was 56 mL per minute. Her glucose 150, calcium was 9, magnesium was 1.6. Her serum iron, TIBC and iron saturation are all within acceptable range. Her total bilirubin is 2. AST, ALT, alkaline phosphatase were normal. Total protein 7, albumin 3.3. Serum triglycerides were 71, total cholesterol 119, LDL cholesterol of 42, VLDL was 14, HDL cholesterol of 63 and the ratio was 1. Her vitamin B12 was 333 picogram/mL. Her 25-hydroxy vitamin D is normal at 32. Her TSH was slightly elevated. Her urinalysis was grossly unremarkable and her treponema pallidum antibodies nonreactive. ASSESSMENT AND PLAN: In summary, this is a 63-year-old female patient who was admitted on account of suicidal statements and action to cross the melatonin in an attempt to harm herself after she has disagreement with her son, all this in a background of major depressive disorder. She has multiple attempts before. The patient has a multitude of medical problems; however, all in all, the patient seems to be medically stable. All her vital signs are normal and all her lab works are within acceptable range. LIZZIE NIEVES MD DR: MIGUEL/dimitri JOB#: [id number] / [id number]
--- NOTE | 2019-06-14 22:01 | HP ---
ADMIT DATE: 06/14/2019 PSYCHIATRIC ADMISSION HISTORY AND EVALUATION This note covers elements not covered in my initial note, 06/14. IDENTIFYING DATA: The patient is a 63-year-old female who returns back to us from the Emergency Room at the [facility] where she presented with suicide attempt by overdose on melatonin 3 mg tablets x 20 after a disagreement with her son. The patient was medically stabilized, felt to need inpatient psychiatric stabilization, referred to us for that. CHIEF COMPLAINT: "Yes, I took the overdose. I wanted to end my life." HISTORY OF PRESENT ILLNESS: The patient has a history of major depressive disorder, rule out bipolar disorder, personality disorder and ADHD. She has been an inpatient with us in the past and at that time, she was referred for placement, but ultimately returned home. She continues to have ongoing mood swings, intermittent anxiety, agitation, extremely impulsive when she is upset. She has had sleep and appetite changes. No active homicidal ideation. She denies active current suicidal ideation. PAST PSYCHIATRIC HISTORY: As above. MEDICAL HISTORY: Positive for allergic rhinitis, chronic kidney disease, PTSD. She has a PEG tube, history of diabetes mellitus, hypertension, degenerative disk disease, asthma. Accu-Cheks a.c. and at bedtime. Diet is PEG tube and ice chips by mouth only. ALLERGIES: SALMETEROL, PENICILLIN, PORK PRODUCTS, DOBUTREX INJECTIONS, FENTANYL, MORPHINE, CODEINE, ASPIRIN, IBUPROFEN, MEPERIDINE. CODE STATUS: Full code. Ambulates with walker. UA is pending. CURRENT PSYCHOTROPICS: Adderall 5 mg twice a day, Abilify 15 mg a day, Neurontin liquid 500 mg twice a day, melatonin 3 mg at bedtime, Requip 1 mg at bedtime, trazodone 50 mg at bedtime, Effexor 50 mg twice a day. FAMILY HISTORY: Noncontributory. SOCIAL HISTORY: No history of alcohol, drug abuse, physical, sexual or elder abuse. She is not known to be a perpetrator. REACTION TO HOSPITALIZATION: The patient accepting of it. MENTAL STATUS EXAMINATION: The patient was seen individually evening of 06/14. She is reasonably oriented and remembered me from the past hospitalization. Speech is coherent, abstraction fair, computation impaired, language function intact. Mood appears depressed, anxious. Denies active suicidal ideation. Attention span short. Language function intact. She is somewhat paranoid. LABORATORY DATA: Reviewed. IMPRESSION: Major depressive disorder, recurrent. Rule out bipolar disorder, mixed versus depressed with psychotic features; anxiety disorder, unspecified; personality disorder, unspecified; history of attention deficit hyperactivity disorder, rule out urinary tract infection. Rest as above. PLAN: Admit to Ger[facility]iat[facility] Unit at [facility]. I will see the patient daily individually from a psychiatric standpoint. Medical followup per Dr. Up. Continue the patient on her current psychotropics. Observe baseline, then make further changes as clinically indicated. MAN Lennxo ROSSI MD DR: LAWSON/dimitri JOB#: [id number] / [id number]
[2019-06-15 01:07] LABS: HEMOGLOBIN A1C 8.1 % (4.8-5.6)
[2019-06-15 05:19] VITALS: BP 119/74
[2019-06-15] MEDS: ARIPiprazole 15 MG TABLET PEG SCH (08:41)
[2019-06-15] MEDS: METOCLOPRAMIDE HCL 10 MG/10 ML SOLUTION. PO SCH ×4 (08:41→20:34)
[2019-06-15] MEDS: POTASSIUM & SODIUM PHOSPHATES PACKET. PO SCH (08:41)
[2019-06-15] MEDS: CHOLECALCIFEROL (VITAMIN D3) 1,000 UNIT TABLET PEG SCH (08:41)
[2019-06-15] MEDS: LEVOTHYROXINE 125 MCG TABLET PEG SCH (08:41)
[2019-06-15] MEDS: metFORMIN 500 MG TABLET PO SCH ×2 (08:41→17:16)
[2019-06-15] MEDS: VENLAFAXINE 50 MG TABLET. PEG SCH ×2 (08:42→17:16)
[2019-06-15] MEDS: GABAPENTIN 250 MG/5 ML ORAL SOLUTION. PEG SCH ×2 (08:42→20:34)
[2019-06-15] MEDS: FAMOTIDINE 20 MG TABLET PO SCH ×2 (08:42→20:34)
[2019-06-15] MEDS: amLODIPine BESYLATE 10 MG TABLET PEG SCH (08:42)
[2019-06-15] MEDS: CETIRIZINE 5 MG/5 ML ORAL SOLUTION. PEG SCH (08:42)
[2019-06-15] MEDS: INSULIN LISPRO 300 UNITS/3 ML VIAL. SQ SCH ×3 (08:58→17:17)
[2019-06-15] MEDS: AMPHETAMINE PEG SCH (09:00)
[2019-06-15] MEDS ORDERED: POTASSIUM CHLORIDE 20 MEQ TABLET.ER. PO SCH (09:00)
[2019-06-15] MEDS: DEXTROAMPHETAMINE PEG SCH (09:00)
[2019-06-15 15:37] VITALS: BP 152/83
[2019-06-15] MEDS ORDERED: OLANZapine 2.5 MG TABLET PEG PRN (16:00)
[2019-06-15] MEDS: traZODone 50 MG TABLET. PEG SCH (20:33)
[2019-06-15] MEDS: rOPINIRole 1 MG TABLET. PEG SCH (20:34)
[2019-06-15] MEDS: ATORVASTATIN CALCIUM 20 MG TABLET PEG SCH (20:34)
[2019-06-15] MEDS: INSULIN GLARGINE SYRINGE. SQ SCH (21:27)
--- NOTE | 2019-06-15 21:32 | PDOC ---
Exam Note: Bradford Note: Please also refer to the separate dictated note~for this date of service dictated separately.~Patient seen individually. Discussed the patient with Nursing staff reviewed the chart.~Reviewed interim history and current functioning. Reviewed vital signs,~Labs/ Radiology~and current medications noted below. Continue current treatment with the changes noted in the dictated addendum note Assessment: Vital Signs/I&O: Vital Signs Date Time Temp Pulse Resp B/P (MAP) Pulse Ox O2 Delivery O2 Flow Rate FiO2 06/15/19 15:37 97.2 106 18 152/83 (106) 98 06/14/19 05:34 Room Air I & O 06/14/19 06/14/19 06/15/19 15:00 23:00 07:00 Intake Total 609 ml 687 ml Balance 609 ml 687 ml Labs: Laboratory Tests Test 06/15/19 07:24 06/15/19 11:54 06/15/19 17:15 06/15/19 19:32 Glucose (Fingerstick) 126 mg/dL (70-99) H 114 mg/dL (70-99) H 71 mg/dL (70-99) 101 mg/dL (70-99) H Current Medications: Meds: Current Medications Medications (Trade) Dose Ordered Sig/Earnest Route PRN Reason Start Time Stop Time Status Last Admin Dose Admin Amlodipine Besylate (Norvasc) 5 mg DAILY PEG 06/15/19 09:00 06/15/19 08:42 Cetirizine HCl (ZyrTEC ORAL SOLN) 10 mg DAILY PEG 06/15/19 09:00 06/15/19 08:42 Vitamin D (Vitamin D3) 2,000 unit DAILY PEG 06/15/19 09:00 06/15/19 08:41 Levothyroxine Sodium (Synthroid) 125 mcg DAILYAC PEG 06/15/19 07:30 06/15/19 08:41 Potassium/ Phosphorus/Sodium (Phos-Nak) 1 pkt DAILY PO 06/15/19 09:00 06/15/19 08:41 Aripiprazole (Abilify) 15 mg DAILY PEG 06/15/19 09:00 06/15/19 08:41 Venlafaxine HCl (Effexor) 50 mg BIDWMEALS PEG 06/15/19 08:00 06/15/19 17:16 Olanzapine (ZyPREXA) 2.5 mg PRN Q2HR PRN PEG PSYCHOSIS 06/15/19 16:00 06/15/19 15:59 I have reviewed the current psychotropics carefully including drug interactions. Risk benefit ratio favors no change other than as noted in my dictated progress note. 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
[2019-06-16 05:35] VITALS: BP 167/91
[2019-06-16] MEDS: METOCLOPRAMIDE HCL 10 MG/10 ML SOLUTION. PO SCH ×4 (08:58→20:17)
[2019-06-16] MEDS: VENLAFAXINE 50 MG TABLET. PEG SCH ×2 (08:58→17:22)
[2019-06-16] MEDS: LEVOTHYROXINE 125 MCG TABLET PEG SCH (08:59)
[2019-06-16] MEDS: METHYLPHENIDATE HCL 5 MG TABLET PEG SCH ×2 (08:59→12:15)
[2019-06-16] MEDS: ARIPiprazole 15 MG TABLET PEG SCH (08:59)
[2019-06-16] MEDS: CHOLECALCIFEROL (VITAMIN D3) 1,000 UNIT TABLET PEG SCH (09:00)
[2019-06-16] MEDS: FAMOTIDINE 20 MG TABLET PO SCH ×2 (09:01→20:16)
[2019-06-16] MEDS: amLODIPine BESYLATE 10 MG TABLET PEG SCH (09:01)
[2019-06-16] MEDS: GABAPENTIN 250 MG/5 ML ORAL SOLUTION. PEG SCH ×2 (09:02→20:17)
[2019-06-16] MEDS: POTASSIUM & SODIUM PHOSPHATES PACKET. PO SCH (09:02)
[2019-06-16] MEDS: CETIRIZINE 5 MG/5 ML ORAL SOLUTION. PEG SCH (09:02)
[2019-06-16] MEDS: metFORMIN 500 MG TABLET PO SCH ×2 (09:03→17:22)
[2019-06-16] MEDS: INSULIN LISPRO 300 UNITS/3 ML VIAL. SQ SCH ×3 (09:05→17:00)
[2019-06-16 15:42] VITALS: BP 117/77
[2019-06-16] MEDS: rOPINIRole 1 MG TABLET. PEG SCH (20:16)
[2019-06-16] MEDS: ATORVASTATIN CALCIUM 20 MG TABLET PEG SCH (20:17)
[2019-06-16] MEDS: traZODone 50 MG TABLET. PEG SCH (20:17)
[2019-06-16] MEDS: INSULIN GLARGINE SYRINGE. SQ SCH (20:19)
[2019-06-16] MEDS ORDERED: VALPROATE ACID 250 MG/5 ML ORAL SOLUTION PEG SCH (21:15)
[2019-06-17 06:02] VITALS: BP 106/63
[2019-06-17] MEDS: INSULIN LISPRO 300 UNITS/3 ML VIAL. SQ SCH ×3 (08:00→17:00)
[2019-06-17] MEDS: METHYLPHENIDATE HCL 5 MG TABLET PEG SCH ×2 (09:01→12:21)
[2019-06-17] MEDS: POTASSIUM & SODIUM PHOSPHATES PACKET. PO SCH (09:01)
[2019-06-17] MEDS: ARIPiprazole 15 MG TABLET PEG SCH (09:01)
[2019-06-17] MEDS: CHOLECALCIFEROL (VITAMIN D3) 1,000 UNIT TABLET PEG SCH (09:01)
[2019-06-17] MEDS: amLODIPine BESYLATE 10 MG TABLET PEG SCH (09:02)
[2019-06-17] MEDS: LEVOTHYROXINE 125 MCG TABLET PEG SCH (09:03)
[2019-06-17] MEDS: CETIRIZINE 5 MG/5 ML ORAL SOLUTION. PEG SCH (09:03)
[2019-06-17] MEDS: FAMOTIDINE 20 MG TABLET PO SCH ×2 (09:03→21:24)
[2019-06-17] MEDS: metFORMIN 500 MG TABLET PO SCH ×2 (09:03→17:17)
[2019-06-17] MEDS: VENLAFAXINE 50 MG TABLET. PEG SCH ×2 (09:03→17:17)
[2019-06-17] MEDS: GABAPENTIN 250 MG/5 ML ORAL SOLUTION. PEG SCH ×2 (09:04→21:25)
[2019-06-17] MEDS: METOCLOPRAMIDE HCL 10 MG/10 ML SOLUTION. PO SCH ×4 (09:04→21:24)
[2019-06-17 16:03] VITALS: BP 127/86
[2019-06-17] MEDS: traZODone 50 MG TABLET. PEG SCH (21:23)
[2019-06-17] MEDS: rOPINIRole 1 MG TABLET. PEG SCH (21:23)
[2019-06-17] MEDS: ATORVASTATIN CALCIUM 20 MG TABLET PEG SCH (21:23)
[2019-06-17] MEDS: VALPROATE ACID 250 MG/5 ML ORAL SOLUTION PEG SCH (21:24)
[2019-06-17] MEDS: INSULIN GLARGINE SYRINGE. SQ SCH (21:26)
--- NOTE | 2019-06-17 21:42 | PDOC ---
Exam Note: Bradford Note: This is a late entry for DOS 06/16/2019. VS - Last 72 Hours, by Label Date Time Temp Pulse Resp B/P (MAP) Pulse Ox O2 Delivery O2 Flow Rate FiO2 06/17/19 16:03 97.6 95 18 127/86 (100) 99 06/17/19 09:02 87 106/63 06/17/19 06:02 98.0 87 18 106/63 (77) 94 Room Air 06/16/19 21:33 97 06/16/19 15:42 97.6 102 18 117/77 (90) 97 06/16/19 09:01 77 167/91 06/16/19 05:35 97.2 77 20 167/91 (116) 91 06/15/19 15:37 97.2 106 18 152/83 (106) 98 06/15/19 08:42 80 119/74 06/15/19 05:19 97.1 80 18 119/74 (89) 95 Please also refer to the separate dictated note~for this date of service dictated separately.~Patient seen individually. Discussed the patient with Nursing staff reviewed the chart.~Reviewed interim history and current functioning. Reviewed vital signs,~Labs/ Radiology~and current medications noted below. Continue current treatment with the changes noted in the dictated addendum note Assessment: Vital Signs/I&O: Vital Signs Date Time Temp Pulse Resp B/P (MAP) Pulse Ox O2 Delivery O2 Flow Rate FiO2 06/17/19 16:03 97.6 95 18 127/86 (100) 99 06/17/19 06:02 Room Air I & O 06/16/19 06/16/19 06/17/19 15:00 23:00 07:00 Intake Total 200 ml Balance 200 ml Labs: Laboratory Tests Test 06/17/19 07:59 06/17/19 12:01 06/17/19 17:11 06/17/19 19:36 Glucose (Fingerstick) 98 mg/dL (70-99) 175 mg/dL (70-99) H 83 mg/dL (70-99) 147 mg/dL (70-99) H Current Medications: Meds: Current Medications Medications (Trade) Dose Ordered Sig/Earnest Route PRN Reason Start Time Stop Time Status Last Admin Dose Admin Valproic Acid (Depakene) 500 mg HS PEG 06/17/19 21:00 06/17/19 21:24 I have reviewed the current psychotropics carefully including drug interactions. Risk benefit ratio favors no change other than as noted in my dictated progress note. Diagnosis: Problems: (1) Attention deficit disorder with hyperactivity (2) Anxiety disorder (3) Major depressive disorder, recurrent episode (4) Impulse control disorder (5) Personality disorder in adult (6) Psychosis, atypical KADEN ROSSI MD Jun 17, 2019 21:42
--- NOTE | 2019-06-17 21:56 | PDOC ---
Exam Note: Bradford Note: Please also refer to the separate dictated note~for this date of service dictated separately.~Patient seen individually. Discussed the patient with Nursing staff reviewed the chart.~Reviewed interim history and current functioning. Reviewed vital signs,~Labs/ Radiology~and current medications noted below. Continue current treatment with the changes noted in the dictated addendum note Assessment: Vital Signs/I&O: Vital Signs Date Time Temp Pulse Resp B/P (MAP) Pulse Ox O2 Delivery O2 Flow Rate FiO2 06/17/19 16:03 97.6 95 18 127/86 (100) 99 06/17/19 06:02 Room Air I & O 06/16/19 06/16/19 06/17/19 15:00 23:00 07:00 Intake Total 200 ml Balance 200 ml Labs: Laboratory Tests Test 06/17/19 07:59 06/17/19 12:01 06/17/19 17:11 06/17/19 19:36 Glucose (Fingerstick) 98 mg/dL (70-99) 175 mg/dL (70-99) H 83 mg/dL (70-99) 147 mg/dL (70-99) H Current Medications: Meds: Current Medications Medications (Trade) Dose Ordered Sig/Earnest Route PRN Reason Start Time Stop Time Status Last Admin Dose Admin Valproic Acid (Depakene) 500 mg HS PEG 06/17/19 21:00 06/17/19 21:24 I have reviewed the current psychotropics carefully including drug interactions. Risk benefit ratio favors no change other than as noted in my dictated progress note. Diagnosis: Problems: (1) Attention deficit disorder with hyperactivity (2) Anxiety disorder (3) Major depressive disorder, recurrent episode (4) Impulse control disorder (5) Personality disorder in adult (6) Psychosis, atypical KADEN ROSSI MD Jun 17, 2019 21:56
--- NOTE | 2019-06-17 23:35 | PN ---
DATE: 06/15/2019 PSYCHIATRIC PROGRESS NOTE This late entry 06/15/2019 covers elements not covered in my initial note. SUBJECTIVE: I met with the patient in the evening of 06/15/2019. Overall, Per JOSETTE Reddy, the patient slept 7 hours previous night. She has been anxious, restless, little paranoid, received Zyprexa p.r.n. I have reviewed her records from the prior admission. Dr. Payan assumed care of her for a few days before she was finally discharged in April and while I treated her, she was on Abilify 30 mg a day along with Depakote, gabapentin, melatonin, trazodone and Requip. However, at discharge, it appears Depakote had been stopped and there is no clear reason I could find for that. REVIEW OF SYSTEMS: Ambulation impaired with walker. No CV, , pulmonary, eye, ENT system symptoms on review. MENTAL STATUS EXAM: Reasonably oriented. Speech is coherent, abstraction fair, computation impaired, language function intact, attention span short. Mood and affect remain somewhat anxious, labile. LABORATORY DATA: Reviewed. IMPRESSION: Major depressive disorder with psychotic features; rule out bipolar disorder, mixed with psychotic features; personality disorder, unspecified; posttraumatic stress disorder. PLAN: The patient has been on Adderall 5 mg twice a day. This is not available at the hospital. We will change to Ritalin equivalent dosage 10 mg twice a day. Maintain Abilify 15 mg a day, Neurontin 500 mg twice a day, liquid melatonin 3 mg at bedtime, Requip 1 mg at bedtime, Effexor 50 mg twice a day, trazodone 50 mg at bedtime. May consider restarting Depakote and I will further review her records before doing this. Processed at length with the patient. MAN Lennox ROSSI MD DR: LAWSON/dimitri JOB#: [id number] / [id number]
--- NOTE | 2019-06-17 23:47 | PN ---
DATE: 06/16/2019 PSYCHIATRIC PROGRESS NOTE This late entry 06/16/2019 covers elements not covered in my initial note. SUBJECTIVE: I met with the patient evening of 06/16/2019. The patient has been calm, somewhat withdrawn, slept 8 hours previous night. REVIEW OF SYSTEMS: Ambulation impaired with walker and she gets tube feeding. No CV, , pulmonary, eye system symptoms on review. MENTAL STATUS EXAMINATION: The patient is reasonably oriented. Speech is coherent, has some latency. Abstraction fair, computation impaired, language function intact, attention span short. Despite this, she still has some mood lability. I have reviewed her past records and discussed with her at length about restarting Depakote liquid. She is agreeable to this. LABORATORY DATA: Reviewed. IMPRESSION: Major depressive disorder, recurrent with psychotic features, rule out bipolar disorder, mixed versus depressed; anxiety disorder, unspecified; posttraumatic stress disorder, personality disorder, unspecified. Rest unchanged. PLAN: Start liquid Depakene 500 mg at bedtime. Check CBC, CMP, valproic acid level, ammonia level in 3 days. Rest unchanged for now. MAN Lennox ROSSI MD DR: LAWSON/dimitri JOB#: [id number] / [id number]
[2019-06-18 06:35] VITALS: BP 144/85
[2019-06-18] MEDS: LEVOTHYROXINE 125 MCG TABLET PEG SCH (09:04)
[2019-06-18] MEDS: METHYLPHENIDATE HCL 5 MG TABLET PEG SCH ×3 (09:04→12:48)
[2019-06-18] MEDS: METOCLOPRAMIDE HCL 10 MG/10 ML SOLUTION. PO SCH ×4 (09:04→20:44)
[2019-06-18] MEDS: metFORMIN 500 MG TABLET PO SCH ×2 (09:05→17:36)
[2019-06-18] MEDS: GABAPENTIN 250 MG/5 ML ORAL SOLUTION. PEG SCH ×2 (09:05→20:45)
[2019-06-18] MEDS: VENLAFAXINE 50 MG TABLET. PEG SCH ×2 (09:05→17:36)
[2019-06-18] MEDS: ARIPiprazole 15 MG TABLET PEG SCH (09:05)
[2019-06-18] MEDS: CETIRIZINE 5 MG/5 ML ORAL SOLUTION. PEG SCH (09:06)
[2019-06-18] MEDS: POTASSIUM & SODIUM PHOSPHATES PACKET. PO SCH (09:06)
[2019-06-18] MEDS: amLODIPine BESYLATE 10 MG TABLET PEG SCH (09:06)
[2019-06-18] MEDS: CHOLECALCIFEROL (VITAMIN D3) 1,000 UNIT TABLET PEG SCH (09:06)
[2019-06-18] MEDS: FAMOTIDINE 20 MG TABLET PO SCH ×2 (09:06→20:44)
[2019-06-18] MEDS: INSULIN LISPRO 300 UNITS/3 ML VIAL. SQ SCH ×3 (09:09→17:38)
[2019-06-18 16:09] VITALS: BP 151/83
[2019-06-18] MEDS: VALPROATE ACID 250 MG/5 ML ORAL SOLUTION PEG SCH (20:43)
[2019-06-18] MEDS: ATORVASTATIN CALCIUM 20 MG TABLET PEG SCH (20:44)
[2019-06-18] MEDS: rOPINIRole 1 MG TABLET. PEG SCH (20:44)
[2019-06-18] MEDS: traZODone 50 MG TABLET. PEG SCH (20:44)
[2019-06-18] MEDS: INSULIN GLARGINE SYRINGE. SQ SCH (20:45)
--- NOTE | 2019-06-18 21:24 | PDOC ---
Exam Note: Bradford Note: Please also refer to the separate dictated note~for this date of service dictated separately.~Patient seen individually. Discussed the patient with Nursing staff reviewed the chart.~Reviewed interim history and current functioning. Reviewed vital signs,~Labs/ Radiology~and current medications noted below. Continue current treatment with the changes noted in the dictated addendum note Assessment: Vital Signs/I&O: Vital Signs Date Time Temp Pulse Resp B/P (MAP) Pulse Ox O2 Delivery O2 Flow Rate FiO2 06/18/19 16:09 97.1 91 16 151/83 (105) 100 06/17/19 06:02 Room Air I & O 06/17/19 06/17/19 06/18/19 15:00 23:00 07:00 Intake Total 0 ml Balance 0 ml Labs: Laboratory Tests Test 06/18/19 07:40 06/18/19 12:04 06/18/19 17:05 06/18/19 19:08 Glucose (Fingerstick) 104 mg/dL (70-99) H 87 mg/dL (70-99) 100 mg/dL (70-99) H 93 mg/dL (70-99) Current Medications: I have reviewed the current psychotropics carefully including drug interactions. Risk benefit ratio favors no change other than as noted in my dictated progress note. Diagnosis: Problems: (1) Attention deficit disorder with hyperactivity (2) Anxiety disorder (3) Major depressive disorder, recurrent episode (4) Impulse control disorder (5) Personality disorder in adult (6) Psychosis, atypical KADEN ROSSI MD Jun 18, 2019 21:24
--- NOTE | 2019-06-19 00:36 | PN ---
DATE: 06/17/2019 PSYCHIATRIC PROGRESS NOTE This late entry 06/17/2019 covers elements not covered in my initial note. SUBJECTIVE: I met with the patient evening of 06/17/2019. Per JOSETTE Jett, the patient slept 6-3/4 hours previous night. She has been appropriate. Still somewhat anxious with some mood lability, but no active suicidal ideation. REVIEW OF SYSTEMS: Ambulation impaired with walker. No CV, , pulmonary, eye system symptoms on review. MENTAL STATUS EXAMINATION: The patient is reasonably oriented. Speech is coherent, has some latency. Abstraction fair, computation impaired, language function intact, attention span short. Mood and affect showing some improvement, still withdrawn. She does have tube feeding and seems to look at this very negatively. LABORATORY DATA: Reviewed. IMPRESSION: Unchanged from initial note. PLAN: No change from initial note with CBC, CMP, valproic acid level, ammonia level to be checked on 06/20/2019, since we have increased the Depakene. Maintain Ritalin, Abilify, gabapentin, melatonin, Requip, trazodone, Effexor along with Zyprexa p.r.n. KADEN ROSSI MD DR: LAWSON/dimitri JOB#: [id number] / [id number]
[2019-06-19 05:59] VITALS: BP 129/72
[2019-06-19] MEDS: FAMOTIDINE 20 MG TABLET PO SCH ×2 (08:35→20:09)
[2019-06-19] MEDS: VENLAFAXINE 50 MG TABLET. PEG SCH ×2 (08:35→17:31)
[2019-06-19] MEDS: CHOLECALCIFEROL (VITAMIN D3) 1,000 UNIT TABLET PEG SCH (08:35)
[2019-06-19] MEDS: LEVOTHYROXINE 125 MCG TABLET PEG SCH (08:35)
[2019-06-19] MEDS: amLODIPine BESYLATE 10 MG TABLET PEG SCH (08:36)
[2019-06-19] MEDS: ARIPiprazole 15 MG TABLET PEG SCH (08:36)
[2019-06-19] MEDS: metFORMIN 500 MG TABLET PO SCH ×2 (08:36→17:31)
[2019-06-19] MEDS: GABAPENTIN 250 MG/5 ML ORAL SOLUTION. PEG SCH ×2 (08:37→20:08)
[2019-06-19] MEDS: METOCLOPRAMIDE HCL 10 MG/10 ML SOLUTION. PO SCH ×4 (08:37→20:09)
[2019-06-19] MEDS: CETIRIZINE 5 MG/5 ML ORAL SOLUTION. PEG SCH (08:37)
[2019-06-19] MEDS: INSULIN LISPRO 300 UNITS/3 ML VIAL. SQ SCH ×3 (08:40→17:00)
[2019-06-19] MEDS ORDERED: POTASSIUM BICARB 20 MEQ EFFERVESCENT TABLET. PO SCH (09:00)
[2019-06-19] MEDS: METHYLPHENIDATE HCL 5 MG TABLET PEG SCH (12:08)
--- NOTE | 2019-06-19 13:23 | PN ---
DATE: 06/18/2019 This late entry 06/18/2018 covers elements not covered in my initial note. SUBJECTIVE: I met with the patient in the evening of 06/18/2019. Per JOSETTE Hernandez, the patient slept 6-1/4 hours previous night. She has done well the previous night and during the day on 06/18/2019. By the evening of 06/18/2019, she was quite anxious, restless because of a lot of noise on the unit from another demented patient, who was quite restless. She had to be taken to the quiet area and felt much better. We discussed options to distract herself from the stimuli including reading books and using headphones with music or even earplugs and she was open to these ideas. REVIEW OF SYSTEMS: Ambulation impaired with walker and she is fed by PEG tube. No CV, , pulmonary, eye system symptoms on review. MENTAL STATUS EXAM: Reasonably oriented. Speech is coherent, has some latency. Abstraction fair, computation impaired, language function intact. Attention span is improved. Mood and affect less withdrawn. LABORATORY DATA: Reviewed. IMPRESSION: Major depressive disorder with psychotic features; personality disorder, unspecified; bipolar disorder, mixed with psychotic features; mild cognitive impairment. PLAN: Continue current psychotropics. Check CBC, CMP, valproic acid level, ammonia level on 06/20 then adjust Depakene to reach therapeutic level. Rest unchanged. MAN Lennox ROSSI MD DR: LAWSON/dimitri JOB#: [id number] / [id number]
[2019-06-19 15:48] VITALS: BP 138/86
[2019-06-19] MEDS: ATORVASTATIN CALCIUM 20 MG TABLET PEG SCH (20:08)
[2019-06-19] MEDS: traZODone 50 MG TABLET. PEG SCH (20:08)
[2019-06-19] MEDS: VALPROATE ACID 250 MG/5 ML ORAL SOLUTION PEG SCH (20:09)
[2019-06-19] MEDS: rOPINIRole 1 MG TABLET. PEG SCH (20:09)
[2019-06-19] MEDS: INSULIN GLARGINE SYRINGE. SQ SCH (20:48)
--- NOTE | 2019-06-19 21:16 | PDOC ---
Exam Note: Bradford Note: Please also refer to the separate dictated note~for this date of service dictated separately.~Patient seen individually. Discussed the patient with Nursing staff reviewed the chart.~Reviewed interim history and current functioning. Reviewed vital signs,~Labs/ Radiology~and current medications noted below. Continue current treatment with the changes noted in the dictated addendum note Assessment: Vital Signs/I&O: Vital Signs Date Time Temp Pulse Resp B/P (MAP) Pulse Ox O2 Delivery O2 Flow Rate FiO2 06/19/19 15:48 97.7 109 16 138/86 (103) 96 06/17/19 06:02 Room Air I & O 06/18/19 06/18/19 06/19/19 15:00 23:00 07:00 Intake Total 400 ml 200 ml Balance 400 ml 200 ml Labs: Laboratory Tests Test 06/19/19 07:52 06/19/19 11:50 06/19/19 18:17 06/19/19 19:39 Glucose (Fingerstick) 93 mg/dL (70-99) 91 mg/dL (70-99) 79 mg/dL (70-99) 98 mg/dL (70-99) Current Medications: Meds: Current Medications Medications (Trade) Dose Ordered Sig/Earnest Route PRN Reason Start Time Stop Time Status Last Admin Dose Admin Potassium Bicarbonate (Potassium Effervescent Tablet) 20 meq DAILY PO 06/19/19 09:00 06/19/19 09:18 DC 06/19/19 08:36 I have reviewed the current psychotropics carefully including drug interactions. Risk benefit ratio favors no change other than as noted in my dictated progress note. Diagnosis: Problems: (1) Attention deficit disorder with hyperactivity (2) Anxiety disorder (3) Major depressive disorder, recurrent episode (4) Impulse control disorder (5) Personality disorder in adult (6) Psychosis, atypical KADEN ROSSI MD Jun 19, 2019 21:16
[2019-06-20 05:42] VITALS: BP 169/89
[2019-06-20 06:48] LABS: BASO % 1 % (0-3); EOS # 0.1 x10^3/uL (0.0-0.7); EOS % 2 % (0-3); HEMATOCRIT 40.4 % (36.0-47.0); HEMOGLOBIN 13.3 g/dL (12.0-15.5); LYMPH # 0.9 x10^3/uL (1.0-4.8); LYMPH % 12 % (24-48); MEAN CORPUSCULAR HEMOGLOBIN 31 pg (25-35); MEAN CORPUSCULAR HGB CONC 33 g/dL (31-37); MEAN CORPUSCULAR VOLUME 94 fL (79-100); MONO # 0.4 x10^3/uL (0.0-1.1); MONO % 5 % (0-9); NEUT # 5.9 x10^3uL (1.8-7.7); NEUT % 81 % (31-73); PLATELET COUNT 170 x10^3/uL (140-400); RED BLOOD COUNT 4.31 x10^6/uL (3.50-5.40); RED CELL DISTRIBUTION WIDTH 17.4 % (11.5-14.5); WHITE BLOOD COUNT 7.3 x10^3/uL (4.0-11.0)
[2019-06-20 07:03] LABS: ALBUMIN 3.1 g/dL (3.4-5.0); ALBUMIN/GLOBULIN RATIO 0.8 (1.0-1.7); ALK PHOS 66 U/L (46-116); ALT (SGPT) 16 U/L (14-59); ANION GAP 9 (6-14); AST (SGOT) 14 U/L (15-37); BLOOD UREA NITROGEN 20 mg/dL (7-20); BUN/CREATININE RATIO 22 (6-20); CALCIUM 8.8 mg/dL (8.5-10.1); CARBON DIOXIDE 31 mmol/L (21-32); CHLORIDE 104 mmol/L (98-107); CREATININE 0.9 mg/dL (0.6-1.0); GFR 63.7; GLUCOSE 116 mg/dL (70-99); POTASSIUM 3.7 mmol/L (3.5-5.1); SODIUM 144 mmol/L (136-145); TOTAL BILIRUBIN 1.5 mg/dL (0.2-1.0); TOTAL PROTEIN 7.1 g/dL (6.4-8.2)
[2019-06-20 07:04] LABS: VAL ACID 29 mcg/mL (50-100)
[2019-06-20] MEDS ORDERED: POTASSIUM CHLORIDE 20 MEQ TABLET.ER. PO SCH ×3 (08:00→21:00)
[2019-06-20] MEDS: METOCLOPRAMIDE HCL 10 MG/10 ML SOLUTION. PO SCH ×4 (08:13→20:00)
[2019-06-20] MEDS: LEVOTHYROXINE 125 MCG TABLET PEG SCH (08:14)
[2019-06-20] MEDS: amLODIPine BESYLATE 10 MG TABLET PEG SCH (08:14)
[2019-06-20] MEDS: CHOLECALCIFEROL (VITAMIN D3) 1,000 UNIT TABLET PEG SCH (08:14)
[2019-06-20] MEDS: metFORMIN 500 MG TABLET PO SCH ×2 (08:15→18:01)
[2019-06-20] MEDS: FAMOTIDINE 20 MG TABLET PO SCH ×2 (08:15→20:00)
[2019-06-20] MEDS: VENLAFAXINE 50 MG TABLET. PEG SCH ×2 (08:15→18:01)
[2019-06-20] MEDS: CETIRIZINE 5 MG/5 ML ORAL SOLUTION. PEG SCH (08:15)
[2019-06-20] MEDS: GABAPENTIN 250 MG/5 ML ORAL SOLUTION. PEG SCH ×2 (08:16→20:00)
[2019-06-20] MEDS: METHYLPHENIDATE HCL 5 MG TABLET PEG SCH ×2 (08:18→12:13)
[2019-06-20] MEDS: INSULIN LISPRO 300 UNITS/3 ML VIAL. SQ SCH ×3 (08:19→17:00)
[2019-06-20] MEDS ORDERED: ARIPiprazole 15 MG TABLET PEG SCH (09:00)
--- NOTE | 2019-06-20 10:36 | RAD ---
CHEST PA LATERAL Clinical indications: Shortness of breath. COMPARISON: None available. Findings: Small left-sided pleural effusion and left lung base infiltrate is seen. Right lung field is clear. No pneumothorax is seen. The heart size is mildly enlarged. The pulmonary vasculature, mediastinum and both nik are unremarkable. Healed left seventh rib fracture is seen. Deformity of the proximal left humerus is seen due to an old healed fracture. Impression: Small left sided pleural effusion and left lung base infiltrate. Mild cardiomegaly. Electronically signed by: Christiano Multani MD (06/20/2019 10:34 AM) [facility]
--- NOTE | 2019-06-20 12:34 | EKG ---
[address] [address] Test Date: 2019-06-20 Test Time: 12:28:24 Pat Name: RAJESH HOWARD Department: Room: [address] [place] [address] Gender: F Clay Grinder: DESTINI : 1955 Requested By: LIZZIE NIEVES Order Number: [id number] Reading MD: Measurements Intervals [place] Rate: 111 P: 129 [place]: 140 QRS: -3 QRSD: 100 T: 38 QT: 338 QTc: 463 Interpretive Statements SINUS TACHYCARDIA LEFTWARD AXIS OTHERWISE NORMAL ECG RI6.02 No previous ECG available for comparison
[2019-06-20 15:51] VITALS: BP 152/89
[2019-06-20] MEDS: ATORVASTATIN CALCIUM 20 MG TABLET PEG SCH (19:59)
[2019-06-20] MEDS: rOPINIRole 1 MG TABLET. PEG SCH (20:00)
[2019-06-20] MEDS: traZODone 50 MG TABLET. PEG SCH (20:00)
[2019-06-20] MEDS: INSULIN GLARGINE SYRINGE. SQ SCH (20:54)
[2019-06-20] MEDS ORDERED: NYSTATIN 100,000 UNITS/ML ORAL SUSPENSION 60ML BOTTLE. SWSP SCH (21:00)
[2019-06-20] MEDS ORDERED: VALPROATE ACID 250 MG/5 ML ORAL SOLUTION PEG SCH (21:00)
--- NOTE | 2019-06-20 21:19 | PDOC ---
Exam Note: Bradford Note: Please also refer to the separate dictated note~for this date of service dictated separately.~Patient seen individually. Discussed the patient with Nursing staff reviewed the chart.~Reviewed interim history and current functioning. Reviewed vital signs,~Labs/ Radiology~and current medications noted below. Continue current treatment with the changes noted in the dictated addendum note Assessment: Vital Signs/I&O: Vital Signs Date Time Temp Pulse Resp B/P (MAP) Pulse Ox O2 Delivery O2 Flow Rate FiO2 06/20/19 15:51 97.9 106 18 152/89 (110) 95 06/17/19 06:02 Room Air I & O 06/19/19 06/19/19 06/20/19 15:00 23:00 07:00 Intake Total 780 ml 600 ml Balance 780 ml 600 ml Labs: Laboratory Tests Test 06/20/19 06:29 06/20/19 07:17 06/20/19 11:53 06/20/19 17:17 White Blood Count 7.3 x10^3/uL (4.0-11.0) Red Blood Count 4.31 x10^6/uL (3.50-5.40) Hemoglobin 13.3 g/dL (12.0-15.5) Hematocrit 40.4 % (36.0-47.0) Mean Corpuscular Volume 94 fL (79-100) Mean Corpuscular Hemoglobin 31 pg (25-35) Mean Corpuscular Hemoglobin Concent 33 g/dL (31-37) Red Cell Distribution Width 17.4 % (11.5-14.5) H Platelet Count 170 x10^3/uL (140-400) Neutrophils (%) (Auto) 81 % (31-73) H Lymphocytes (%) (Auto) 12 % (24-48) L Monocytes (%) (Auto) 5 % (0-9) Eosinophils (%) (Auto) 2 % (0-3) Basophils (%) (Auto) 1 % (0-3) Neutrophils # (Auto) 5.9 x10^3uL (1.8-7.7) Lymphocytes # (Auto) 0.9 x10^3/uL (1.0-4.8) L Monocytes # (Auto) 0.4 x10^3/uL (0.0-1.1) Eosinophils # (Auto) 0.1 x10^3/uL (0.0-0.7) Basophils # (Auto) 0.0 x10^3/uL (0.0-0.2) Sodium Level 144 mmol/L (136-145) Potassium Level 3.7 mmol/L (3.5-5.1) Chloride Level 104 mmol/L (98-107) Carbon Dioxide Level 31 mmol/L (21-32) Anion Gap 9 (6-14) Blood Urea Nitrogen 20 mg/dL (7-20) Creatinine 0.9 mg/dL (0.6-1.0) Estimated GFR (Cockcroft-Gault) 63.7 BUN/Creatinine Ratio 22 (6-20) H Glucose Level 116 mg/dL (70-99) H Calcium Level 8.8 mg/dL (8.5-10.1) Total Bilirubin 1.5 mg/dL (0.2-1.0) H Aspartate Amino Transferase (AST) 14 U/L (15-37) L Alanine Aminotransferase (ALT) 16 U/L (14-59) Alkaline Phosphatase 66 U/L (46-116) Ammonia 16 mcmol/L (11-34) Troponin I Quantitative < 0.017 ng/mL (0-0.055) Total Protein 7.1 g/dL (6.4-8.2) Albumin 3.1 g/dL (3.4-5.0) L Albumin/Globulin Ratio 0.8 (1.0-1.7) L Valproic Acid Level 29 mcg/mL (50-100) L Valproic Acid Last Dose Date 06/19/2019 Valproic Acid Last Dose Time 2100 Glucose (Fingerstick) 118 mg/dL (70-99) H 112 mg/dL (70-99) H 79 mg/dL (70-99) Test 06/20/19 19:09 Glucose (Fingerstick) 92 mg/dL (70-99) Current Medications: Meds: Current Medications Medications (Trade) Dose Ordered Sig/Earnest Route PRN Reason Start Time Stop Time Status Last Admin Dose Admin Potassium Chloride (Klor-Con) 20 meq DAILYWBKFT PO 06/20/19 08:00 06/20/19 17:42 DC 06/20/19 08:16 Aripiprazole (Abilify) 20 mg DAILY PEG 06/20/19 09:00 2/12/20 09:19 DC 06/20/19 08:18 Valproic Acid (Depakene) 500 mg BID PEG 06/20/19 21:00 06/20/19 19:59 Nystatin (Mycostatin) 5 ml QID SWSP 06/20/19 21:00 06/30/19 11:00 06/20/19 20:53 Potassium Chloride (Klor-Con) 20 meq TID PO 06/20/19 21:00 06/20/19 20:00 I have reviewed the current psychotropics carefully including drug interactions. Risk benefit ratio favors no change other than as noted in my dictated progress note. Diagnosis: Problems: (1) Attention deficit disorder with hyperactivity (2) Anxiety disorder (3) Major depressive disorder, recurrent episode (4) Impulse control disorder (5) Personality disorder in adult (6) Psychosis, atypical KADEN ROSSI MD Jun 20, 2019 21:19
--- NOTE | 2019-06-20 23:04 | CONS ---
DATE OF CONSULTATION: HISTORY OF PRESENT ILLNESS: The patient is a 63-year-old female patient who is apparently complaining of chest pain, shortness of breath, cough which is moist, but she is unable to expectorate any phlegm and also swelling of both her legs. She also complained of orthopnea and paroxysmal nocturnal dyspnea. We did some lab work this morning and also chest x-ray. Given that she has multiple risk factors for coronary artery disease, we did also an EKG and 3 sets of cardiac enzyme. PAST MEDICAL HISTORY: Significant for hypertension, type 2 diabetes mellitus, hypothyroidism, bronchial asthma. 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 PAST SURGICAL HISTORY: Significant for , resection of her brain tumor and placement of percutaneous endoscopic gastrostomy tube for dysphagia. PAST PSYCHIATRIC HISTORY: Significant for posttraumatic stress disorder, major depressive disorder, generalized anxiety. She has had multiple suicide attempts before. ALLERGIES: She is ALLERGIC TO PENICILLIN, PORK AND PORCINE CONTAINING PRODUCTS, ASPIRIN, CODEINE, DOBUTAMINE, IBUPROFEN, LANTUS INSULIN, MEPERIDINE, MORPHINE and SOLU-MEDROL. FAMILY HISTORY: Her mother is still alive. Her father is . She has 3 younger brothers and seemingly healthy. SOCIAL HISTORY: She is , has 1 son and 1 daughter. She does not smoke, drink alcohol or use recreational drugs. She was in [employer] for about 4 years. MEDICATIONS: She is currently on following medications: She is on Aripiprazole 20 mg once a day, valproic acid 500 mg twice a day, potassium chloride 20 mEq daily, methylphenidate 10 mg twice a day, olanzapine 2.5 mg every 2 hours, vitamin D 2000 international units once a day, cetirizine 10 mg per feeding tube daily, amlodipine besylate 5 mg per feeding tube daily, venlafaxine 50 mg twice a day, levothyroxine 125 mcg once a day, trazodone 50 mg at bedtime, Requip 1 mg at bedtime, Lantus insulin 6 units at bedtime, famotidine 20 mg twice a day, gabapentin 500 mg per feeding tube twice a day, atorvastatin calcium 20 mg at bedtime, acetaminophen 650 mg every 6 hours, melatonin 3 mg at bedtime, metformin 500 mg twice a day and Humalog insulin 6 units before meals, metoclopramide 5 mg 3 times a day before meals, tramadol 50 mg 3 times a day, polyethylene glycol 17 grams daily and magnesium oxide 30 mL p.o. daily p.r.n. for constipation. PHYSICAL EXAMINATION: GENERAL: When I examined her this evening, she was sitting comfortably in her chair, in no apparent distress. No pallor, jaundice, cyanosis or thyromegaly. No jugular venous distention. She has mild bilateral lower limb edema. VITAL SIGNS: Her heart rate was 106, blood pressure 152/89, temperature was 97.6, respiratory rate was 18 and oxygen saturation was 96% on room air. HEAD, EYES, EARS, NOSE AND THROAT: Showed normocephalic, atraumatic. NECK: Supple. HEART: Showed normal first and second heart sounds. No gallop or murmur. CHEST: Shows central trachea, equal bilateral expansion, air entry, vesicular sounds with bilateral crepitation posteriorly. I could not appreciate any rhonchi. ABDOMEN: Distended, soft with a PEG tube in place. NEUROLOGIC: She is awake, alert, responding appropriately. All cranial nerves intact. EXTREMITIES: She moves extremities without difficulty. She is apparently mostly chair bound. LABORATORY AND DIAGNOSTIC DATA: This morning showed a white cell count 7300, hemoglobin 13.3, hematocrit 40, MCV 94 and platelet count of 170,000. Her chemistry showed a serum sodium 144, potassium 3.7, chloride 104, bicarbonate 31, anion gap of 9, BUN 20, creatinine 0.9, estimated GFR was 64 mL per minute. Her glucose 116, calcium was 8.8. Total bilirubin slightly elevated. AST, ALT, alkaline phosphatase were normal. Total protein 7.1, albumin was 3.1. Her first set of troponin was less than 0.017. Her EKG showed that she was in sinus tachycardia with no evidence of any ST segment elevation or depression and her chest x-ray showed that she has small left side pleural effusion and left lung base infiltrate is seen. The right lung raymundo are clear. No pneumothorax seen. The heart size is mildly enlarged. Pulmonary vasculature, mediastinum and both nik are unremarkable. Healed left 7th rib fracture is seen. Deformity of the proximal left humerus is seen due to an old healed fracture. ASSESSMENT AND PLAN: In summary, this is a 63-year-old female patient who has been complaining of chest pain. The EKG so far and first set of cardiac enzymes ruled out myocardial infarction. We will do 2 more sets of cardiac enzyme. Checked her chest x-ray which showed only mild cardiomegaly and left-sided pleural effusion. She has bilateral lower extremity edema and my plan is to start her on Lasix 40 mg once a day. We will increase potassium to 20 mEq 3 times a day. We will do 2 more sets of cardiac enzyme and she has also oropharyngeal candidiasis and was started on nystatin suspension 5 mL swish and spit 4 times a day. LIZZIE NIEVES MD DR: MIGUEL/dimitri JOB#: [id number] / [id number]
--- NOTE | 2019-06-20 23:08 | PN ---
DATE: 06/19/2019 PSYCHIATRIC PROGRESS NOTE This late entry 06/19/2019 covers elements not covered in my initial note. SUBJECTIVE: I met with the patient evening of 06/19/2019. Per JOSETTE Rodas, the patient slept 7-1/4 hours previous night. She denies suicidal ideation, but stated previous night, she was seeing a cat and could hear the cat and was having racing thoughts. She seemed to be hallucinating per nursing description. She has been obsessive, repeatedly counting. When I met with her in the evening and questioned her on the hallucinations, she states she has them intermittently during the day, but more intensely at night. REVIEW OF SYSTEMS: Ambulation impaired with walker. GI symptoms and she is on tube feeding. No CV, , pulmonary, eye system symptoms on review. MENTAL STATUS EXAMINATION: Reasonably oriented. Speech is coherent, abstraction fair, computation impaired, language function intact, attention span short. Mood and affect, some lability persists and she is intermittently psychotic. LABORATORY DATA: Reviewed. IMPRESSION: Unchanged from initial note. PLAN: No change from initial note, but we will go ahead and increase the Abilify from 15 mg a day to 20 at bedtime. KADEN ROSSI MD DR: LAWSON/dimitri JOB#: [id number] / [id number]
[2019-06-21] MEDS ORDERED: FAMO20TA5 PEG (02:25)
[2019-06-21] MEDS ORDERED: FURO40TA4 PEG (02:27)
[2019-06-21] MEDS ORDERED: MAG30ORA2 PEG (02:29)
[2019-06-21] MEDS ORDERED: METH28OI2 TP (02:30)
[2019-06-21] MEDS ORDERED: MAGN24003 PEG (02:30)
[2019-06-21] MEDS ORDERED: METH10TA10 PEG (02:32)
[2019-06-21] MEDS ORDERED: NYST1000 SWSP (02:35)
[2019-06-21] MEDS ORDERED: OLAN5TAB9 PEG (02:36)
[2019-06-21] MEDS ORDERED: VALP500S PEG (02:40)
[2019-06-21] MEDS ORDERED: AMLO5TAB10 PEG (04:12)
[2019-06-21] MEDS ORDERED: ARIPiprazole 10 MG TABLET PEG SCH (09:00)
[2019-06-21] MEDS ORDERED: FUROSEMIDE 40 MG TABLET PO SCH (09:00)
--- NOTE | 2019-06-21 21:20 | PDOC ---
Exam Note: Bradford Note: Please also refer to the separate dictated note~for this date of service dictated separately.~Patient seen individually. Discussed the patient with Nursing staff reviewed the chart.~Reviewed interim history and current functioning. Reviewed vital signs,~Labs/ Radiology~and current medications noted below. Continue current treatment with the changes noted in the dictated addendum note Assessment: Vital Signs/I&O: Vital Signs Date Time Temp Pulse Resp B/P (MAP) Pulse Ox O2 Delivery O2 Flow Rate FiO2 06/20/19 15:51 97.9 106 18 152/89 (110) 95 06/17/19 06:02 Room Air I & O 06/20/19 06/20/19 06/21/19 15:00 23:00 07:00 Intake Total 830 ml 0 ml Balance 830 ml 0 ml Current Medications: I have reviewed the current psychotropics carefully including drug interactions. Risk benefit ratio favors no change other than as noted in my dictated progress note. Diagnosis: Problems: (1) Attention deficit disorder with hyperactivity (2) Anxiety disorder (3) Major depressive disorder, recurrent episode (4) Impulse control disorder (5) Personality disorder in adult (6) Psychosis, atypical KADEN ROSSI MD Jun 21, 2019 21:20
--- NOTE | 2019-06-22 10:03 | PN ---
DATE: 06/20/2019 PSYCHIATRIC PROGRESS NOTE This late entry 06/20/2019 covers the elements not covered in my initial note. SUBJECTIVE: I met with the patient evening of 06/20/2019. Per JOSETTE Rodas, the patient slept 7-1/4 hours previous night. She has been flat, somewhat withdrawn, but later in the day was more interactive and talkative. She said in the morning, she felt like she was drowning. Dr. Up did evaluate her. Chest x-ray showed pleural effusion. EKG, sinus tachycardia. Valproic acid level 29, subtherapeutic. REVIEW OF SYSTEMS: She is on the tube feeding, impaired ambulation with walker, some difficulty with her breathing. No CV, , eye, ENT system symptoms on review. MENTAL STATUS EXAM: Reasonably oriented. Speech is coherent, has some latency. Abstraction fair, computation impaired, language function intact, attention span short. Mood and affect showing some improvement. LABORATORY DATA: Reviewed. IMPRESSION: Unchanged from initial note. PLAN: Since valproic acid level is subtherapeutic at 29. We will increase the Depakene liquid to 500 mg b.i.d. Check CBC, CMP, valproic acid level in 3 days. Defer medical management to Dr. Up. Rest unchanged. KADEN ROSSI MD DR: LAWSON/dimitri JOB#: [id number] / [id number]
--- NOTE | 2019-06-22 10:07 | DS ---
DATE OF DISCHARGE: 06/21/2019 DISCHARGE SUMMARY/PSYCHIATRIC PROGRESS NOTE This late entry 06/21/2019 covers elements not covered in my initial note. REASON FOR ADMISSION: Please refer to the admission history for details. Briefly, patient is a 63-year-old female referred back to us from the [facility] after she presented there at the Emergency Room with suicidal statements and after she had taken an overdose of melatonin in a suicide gesture. This is despite intense interventions in her home setting with psychiatric services and past failed inpatient psychiatric hospitalizations. The patient was deemed a danger, had taken an overdose to end her life, had failed outpatient psychiatric interventions resulting in this readmission. SIGNIFICANT FINDINGS AND CLINICAL COURSE: Following admission, patient was seen daily individually by myself from a psychiatric standpoint, medical followup with Dr. Up. Initially, patient remained extremely withdrawn, depressed. It was noted that Depakote, her mood stabilizer had been discontinued since her last discharge from our facility. She presents with ongoing mood vacillations in addition to her depressive symptoms and Depakene liquid was restarted by tube feeding. Level was subtherapeutic at 29 on 500 mg at bedtime and this was increased to 500 mg twice a day with CBC, CMP, valproic acid level to be checked in 3 days. Gradually mood appeared to be improving. She was still on one on one status, but in line of sight, but this was discontinued. However, at this stage, she had some respiratory distress, pleural effusion on chest x-ray and was transferred to the Medical/Surgical floor per Dr. Up. REVIEW OF SYSTEMS: Prior to discharge on 06/21/2019, ambulation impaired with walker, difficulty with breathing. No CV, system symptoms on review. MENTAL STATUS EXAM: Reasonably oriented. Speech coherent, has some latency. Abstraction fair, computation impaired, language function intact. Mood and affect withdrawn. LABORATORY DATA: Reviewed. CONDITION AT DISCHARGE: Improved. No active suicidal ideation at discharge. FINAL DIAGNOSES: Major depressive disorder, recurrent, in partial remission, probable bipolar disorder, depressed with psychotic features in partial remission, personality disorder, unspecified. Rest diagnosis unchanged from admission. Respiratory distress, pleural effusion, probable pneumonia. DISCHARGE MEDICATIONS: Please refer to the MRAD. DISCHARGE INSTRUCTIONS: Psychiatric and medical followup on the medical/surgical floor. Time for discharge day management greater than 30 minutes. MAN Lennox ROSSI MD DR: Francisca JOB#: [id number] / [id number]
== END 2019-06-21 02:52 | disposition short-term general hospital (02) | DRG 885 ==
LOC: GEROPSY 00:15
PROVIDERS: ADMIT Psychiatry & Neurology Psychiatry; ATTEND Psychiatry & Neurology Psychiatry
DX: F31.64 Bipolar disorder, current episode mixed, severe, with psychotic features (principal); J18.9 Pneumonia, unspecified organism; N39.0 Urinary tract infection, site not specified; J90 Pleural effusion, not elsewhere classified; E03.9 Hypothyroidism, unspecified; E11.22 Type 2 diabetes mellitus with diabetic chronic kidney disease; F03.90 Unspecified dementia, unspecified severity, without behavioral disturbance, psychotic disturbance, mood disturbance, and anxiety; F41.1 Generalized anxiety disorder; F43.10 Post-traumatic stress disorder, unspecified; F60.9 Personality disorder, unspecified; F63.9 Impulse disorder, unspecified; F90.9 Attention-deficit hyperactivity disorder, unspecified type; I12.9 Hypertensive chronic kidney disease with stage 1 through stage 4 chronic kidney disease, or unspecified chronic kidney disease; J45.909 Unspecified asthma, uncomplicated; N18.9 Chronic kidney disease, unspecified; Z79.899 Other long term (current) drug therapy; Z93.1 Gastrostomy status; Z88.0 Allergy status to penicillin; R06.03 Acute respiratory distress
CPT/HCPCS: 36415; 71046; 80053; 80061; 80164; 81001; 82140; 82306; 82607; 82947; 83036; 83540; 83550; 83735; 84436; 84443; 84480; 84484; 85025; 86592; 87086; 93005; J1815; J8597

== ENCOUNTER 2019-06-21 02:00 | Inpatient (IN) | payer OTHER ==
[~2019-06-21] VITALS: Ht 167.6 cm; Wt 124.8 kg
[2019-06-21] VITALS (8 sets, daily range): BP systolic 100–158; BP diastolic 56–87
[~2019-06-21 02:00] MED LIST changes: +ACET160S PEG; +ARIP15TA36 PEG; +DEXT5TAB27 PEG; +VENL100T PEG
[2019-06-21] MEDS ORDERED: FAMO20TA5 PEG (02:25)
[2019-06-21] MEDS ORDERED: FURO40TA4 PEG (02:27)
[2019-06-21] MEDS ORDERED: MAG30ORA2 PEG (02:29)
[2019-06-21] MEDS ORDERED: METH28OI2 TP (02:30)
[2019-06-21] MEDS ORDERED: MAGN24003 PEG (02:30)
[2019-06-21] MEDS ORDERED: METH10TA10 PEG (02:32)
[2019-06-21] MEDS ORDERED: NYST1000 SWSP (02:35)
[2019-06-21] MEDS ORDERED: OLAN5TAB9 PEG (02:36)
[2019-06-21] MEDS ORDERED: VALP500S PEG (02:40)
[2019-06-21] MEDS ORDERED: AMLO5TAB10 PEG (04:12)
[2019-06-21] MEDS ORDERED: DEXTROSE 50% 25 GM / 50ML DISP.SYRIN. IV PRN (05:00)
[2019-06-21] MEDS ORDERED: MAG HYDROX/AL HYDROX/SIMETH 30 ML ORAL.SUSP PEG PRN (05:15)
[2019-06-21] MEDS ORDERED: traMADol 50 MG TABLET PEG PRN (05:15)
[2019-06-21] MEDS ORDERED: POLYETHYLENE GLYCOL 3350 17 GM PACKET. PEG PRN (05:15)
[2019-06-21] MEDS ORDERED: ACETAMINOPHEN 650 MG/20.3 ML SOLUTION. PEG PRN (05:30)
[2019-06-21] MEDS ORDERED: MAGNESIUM HYDROXIDE 2,400 MG/30 ML ORAL.SUSP. PEG PRN (05:45)
[2019-06-21] MEDS ORDERED: METHYL SALICYLATE/MENTHOL TOPICAL OINTMENT 57GM TUBE. TP PRN (05:45)
[2019-06-21] MEDS ORDERED: VANCOMYCIN 2 GM in IV NORMAL SALINE 500ML 500 ML IV ONE (06:00)
[2019-06-21] MEDS: IPRATRPIUM/ALBUTEROL 0.5/2.5MG 3 ML NEBU. NEB SCH ×4 (06:04→21:20)
[2019-06-21 06:57] LABS: BASO % 1 % (0-3); EOS # 0.2 x10^3/uL (0.0-0.7); EOS % 3 % (0-3); HEMATOCRIT 38.3 % (36.0-47.0); HEMOGLOBIN 12.7 g/dL (12.0-15.5); LYMPH # 1.6 x10^3/uL (1.0-4.8); LYMPH % 28 % (24-48); MEAN CORPUSCULAR HEMOGLOBIN 31 pg (25-35); MEAN CORPUSCULAR HGB CONC 33 g/dL (31-37); MEAN CORPUSCULAR VOLUME 94 fL (79-100); MONO # 0.4 x10^3/uL (0.0-1.1); MONO % 7 % (0-9); NEUT # 3.6 x10^3uL (1.8-7.7); NEUT % 62 % (31-73); PLATELET COUNT 151 x10^3/uL (140-400); RED BLOOD COUNT 4.06 x10^6/uL (3.50-5.40); RED CELL DISTRIBUTION WIDTH 17.5 % (11.5-14.5); WHITE BLOOD COUNT 5.8 x10^3/uL (4.0-11.0)
[2019-06-21 07:12] LABS: ALBUMIN/GLOBULIN RATIO 0.9 (1.0-1.7); CALCIUM 8.5 mg/dL (8.5-10.1); GFR 56.4; POTASSIUM 3.9 mmol/L (3.5-5.1); TOTAL BILIRUBIN 1.4 mg/dL (0.2-1.0); TOTAL PROTEIN 6.5 g/dL (6.4-8.2)
[2019-06-21] MEDS: LEVOTHYROXINE 125 MCG TABLET PEG SCH (07:30)
[2019-06-21] MEDS ORDERED: metFORMIN 500 MG TABLET PO SCH (08:00)
[2019-06-21] MEDS: INSULIN LISPRO 300 UNITS/3 ML VIAL. SQ SCH ×3 (08:00→17:00)
[2019-06-21] MEDS: guaiFENesin 300 MG/15 ML LIQUID PEG SCH ×3 (08:01→20:21)
[2019-06-21] MEDS: METOCLOPRAMIDE HCL 10 MG/10 ML SOLUTION. PEG SCH ×3 (08:01→16:30)
[2019-06-21] MEDS: FAMOTIDINE 20 MG TABLET PEG SCH ×2 (08:01→20:20)
[2019-06-21] MEDS: ARIPiprazole 10 MG TABLET PEG SCH (08:01)
[2019-06-21] MEDS: POTASSIUM BICARB 20 MEQ EFFERVESCENT TABLET. PEG SCH ×3 (08:01→16:31)
[2019-06-21] MEDS: CHOLECALCIFEROL (VITAMIN D3) 1,000 UNIT TABLET PEG SCH (08:01)
[2019-06-21] MEDS: amLODIPine BESYLATE 5 MG TABLET PEG SCH (08:02)
[2019-06-21] MEDS: VALPROATE ACID 250 MG/5 ML ORAL SOLUTION PEG SCH ×2 (08:06→20:21)
[2019-06-21] MEDS: FUROSEMIDE 20 MG/2 ML VIAL IVP SCH (08:07)
[2019-06-21] MEDS: NYSTATIN 100,000 UNITS/ML ORAL SUSPENSION 60ML BOTTLE. SWSP SCH ×4 (08:09→20:21)
[2019-06-21] MEDS: ENOXAPARIN 40 MG/0.4 ML SYRINGE. SQ SCH ×3 (08:09→20:21)
[2019-06-21] MEDS: VENLAFAXINE 50 MG TABLET. PEG SCH ×2 (08:15→20:20)
[2019-06-21] MEDS: CETIRIZINE 5 MG/5 ML ORAL SOLUTION. PEG SCH (08:15)
[2019-06-21] MEDS: GABAPENTIN 250 MG/5 ML ORAL SOLUTION. PEG SCH ×2 (08:15→20:21)
[2019-06-21] MEDS: METHYLPHENIDATE HCL 5 MG TABLET PEG SCH ×2 (08:15→11:30)
[2019-06-21] MEDS: VANCOMYCIN PER PHARMACY MC PRN (08:16)
[2019-06-21] MEDS: MEROPENEM 1 GM in IV NORMAL SALINE 100ML 100 ML IV SCH ×3 (09:51→22:48)
[2019-06-21] MEDS ORDERED: CONTRAST GIVEN MC PRN (14:45)
[2019-06-21] MEDS ORDERED: IOHEXOL 350 MG/ML 100 ML VIAL. IV ONE (15:00)
--- NOTE | 2019-06-21 15:06 | HP ---
ADMIT DATE: 06/21/2019 HISTORY OF PRESENT ILLNESS: The patient is a 63-year-old female patient who was transferred from [facility] on account of being extremely short of breath, hypoxic. Her oxygen saturation was only 83% on room air. She was placed on 2 liters of oxygen. She was extremely wheezy, complaining of pain on inspiration and when coughing. She has a moist non-productive cough. She feels like she is drowning in her secretion and therefore, a decision was made to transfer her to ICU where she was basically started on IV vancomycin and meropenem as she is allergic to PENICILLIN and together with all other medications including furosemide 20 mg IV and we did order labs including CBC, CMP and D-dimer. In fact, they saw yesterday upstairs and we did a chest x-ray as well as some lab work. Her white cell count yesterday was 7300, hemoglobin 13.3, hematocrit 40, MCV 94 and platelet count of 107,000. Her chemistry was unremarkable and had also a chest x-ray, which showed that she might have left side pleural effusion and left lung base infiltrate versus compressive atelectasis. We treated her yesterday with Lasix and potassium; however, given the worsening of her condition, she was transferred down to the ICU for further evaluation and treatment. PAST MEDICAL HISTORY: Significant for hypertension, type 2 diabetes mellitus, hypothyroidism, bronchial asthma. She has a footdrop, chronic kidney disease, difficulty walking. She has traumatic brain injury and corkscrew esophagus with dysphagia. She did have a brain tumor that was partially resected. PAST SURGICAL HISTORY: Significant for , resection of her brain tumor and placement of a percutaneous endoscopic gastrostomy tube. PAST PSYCHIATRIC HISTORY: Significant for posttraumatic stress disorder, major depressive disorder, generalized anxiety disorder. She has made multiple suicide attempts and that is the reason why she was admitted again recently to [facility]. ALLERGIES: She is ALLERGIC TO PENICILLIN, PORK and PORCINE CONTAINING PRODUCTS, ASPIRIN, CODEINE, DOBUTAMINE, IBUPROFEN, LANTUS INSULIN, MEPERIDINE, MORPHINE and SOLU-MEDROL. FAMILY HISTORY: Her mother is still alive. Her father is . She has 3 younger brother who is seemingly healthy. SOCIAL HISTORY: She is , has 1 son and 1 daughter. She does not smoke, drink alcohol or use any recreational drugs. She was in [employer] for about 40 years. MEDICATIONS: She is on following medications: She was on furosemide 40 mg per feeding tube once a day, aripiprazole 20 mg per feeding tube, potassium chloride 20 mEq per feeding tube 3 times a day, and nystatin suspension swish and spit 4 times a day. She is on valproic acid 500 mg per feeding tube twice a day, methylphenidate 10 mg twice a day, olanzapine 2.5 mg every 2 hours, vitamin D 2000 International Units once a day, cetirizine 10 mg per feeding tube once a day, amlodipine besylate 5 mg once a day, venlafaxine 50 mg twice a day, levothyroxine sodium 125 mcg once a day, trazodone 50 mg at bedtime, Requip 1 mg at bedtime, Lantus 6 units at bedtime, promethazine 20 mg b.i.d., gabapentin 500 mg twice a day, atorvastatin calcium 20 mg at bedtime, acetaminophen 650 mg every 6 hours, melatonin 3 mg at bedtime, metformin 500 mg twice a day, NovoLog insulin 5-6 units before meals, metoclopramide 5 mg 3 times a day before meals, tramadol 50 mg 3 times a day, polyethylene glycol 17 grams daily as needed for hypoglycemia, magnesium hydroxide for milk of magnesia 30 mL p.o. daily p.r.n. for constipation, Mylanta 15 mL after meals and at bedtime. PHYSICAL EXAMINATION: GENERAL: On arrival to the ICU, the patient was slightly tachypneic, but there was no pallor, jaundice, cyanosis or thyromegaly. No jugular venous distention. No lower limb edema. VITAL SIGNS: Her heart rate was 90, blood pressure was 156/87, temperature was 97.8, respiratory rate was 18 and oxygen saturation was 99% on 2 liters of oxygen. HEAD, EYES, EARS, NOSE AND THROAT: Showed normocephalic, atraumatic. NECK: Supple. HEART: Showed normal first and second heart sounds. No gallop, rub or murmur. CHEST: Shows central trachea, equal bilateral expansion, air entry with fascicular breath sounds with crepitation mostly in the left side posteriorly. I could not appreciate any rhonchi. ABDOMEN: Distended, soft with gastrostomy tube in place. NEUROLOGIC: She was awake, alert, responding appropriately. All her cranial nerves intact. EXTREMITIES: She moves extremities without difficulty. LABORATORY DATA: Her lab work on arrival to the ICU showed a white cell count of 5800, hemoglobin 12.7, hematocrit 38, MCV 94 and platelet count of 151,000. Her chemistry showed a serum sodium of 145, potassium 3.9, chloride 105, bicarbonate 34, anion gap of 6, BUN 19, creatinine 1, estimated GFR was 56 mL per minute. Her glucose was 89. Her lactic acid was 1. Calcium was 8.5. Total bilirubin 1.4. AST, ALT, alkaline phosphatase were normal. Her total protein was 6.5, albumin was 3. Her D-dimer was 0.95. Her troponin was less than 0.017. Her chest x-ray done yesterday showed that the patient has small left side pleural effusion, left lung base infiltrate versus compressive atelectasis and mild cardiomegaly. PLAN: To obviously send blood for culture and sensitivity. I have started her also on vancomycin and meropenem given the elevated D-dimer. I will hold obviously metformin and we will arrange for her to have a chest angio to rule out pulmonary embolism as I saw a reason for her hypoxemia. LIZZIE NIEVES MD DR: MIGUEL/dimitri JOB#: [id number] / [id number]
[2019-06-21] MEDS: traZODone 50 MG TABLET. PEG SCH (20:20)
[2019-06-21] MEDS: rOPINIRole 1 MG TABLET. PEG SCH (20:20)
[2019-06-21] MEDS: ATORVASTATIN CALCIUM 20 MG TABLET PEG SCH (20:20)
[2019-06-21] MEDS: INSULIN GLARGINE SYRINGE. SQ SCH (21:00)
[2019-06-22] VITALS (8 sets, daily range): BP systolic 111–142; BP diastolic 62–83
[2019-06-22] MEDS: VANCOMYCIN 2 GM in IV NORMAL SALINE 500ML 500 ML IV SCH ×2 (00:51→20:11)
[2019-06-22] MEDS: IPRATRPIUM/ALBUTEROL 0.5/2.5MG 3 ML NEBU. NEB SCH ×4 (05:36→21:37)
[2019-06-22] MEDS: MEROPENEM 1 GM in IV NORMAL SALINE 100ML 100 ML IV SCH ×3 (05:50→22:17)
[2019-06-22 06:27] LABS: HEMATOCRIT 36.3 % (36.0-47.0); HEMOGLOBIN 11.9 g/dL (12.0-15.5); RED BLOOD COUNT 3.84 x10^6/uL (3.50-5.40); RED CELL DISTRIBUTION WIDTH 17.3 % (11.5-14.5); WHITE BLOOD COUNT 4.3 x10^3/uL (4.0-11.0)
[2019-06-22 06:46] LABS: ALBUMIN 2.7 g/dL (3.4-5.0); ALBUMIN/GLOBULIN RATIO 0.7 (1.0-1.7); CALCIUM 8.4 mg/dL (8.5-10.1); GFR 56.4; POTASSIUM 3.7 mmol/L (3.5-5.1); TOTAL BILIRUBIN 1.2 mg/dL (0.2-1.0); TOTAL PROTEIN 6.4 g/dL (6.4-8.2)
[2019-06-22] MEDS ORDERED: IOHEXOL 350 MG/ML 100 ML VIAL. IV ONE (08:15)
[2019-06-22] MEDS ORDERED: CONTRAST GIVEN MC PRN (08:30)
[2019-06-22] MEDS: LEVOTHYROXINE 125 MCG TABLET PEG SCH (09:18)
[2019-06-22] MEDS: METOCLOPRAMIDE HCL 10 MG/10 ML SOLUTION. PEG SCH ×3 (09:19→17:00)
[2019-06-22] MEDS: METHYLPHENIDATE HCL 5 MG TABLET PEG SCH ×2 (09:19→12:52)
[2019-06-22] MEDS: POTASSIUM BICARB 20 MEQ EFFERVESCENT TABLET. PEG SCH ×3 (09:19→17:00)
[2019-06-22] MEDS: FUROSEMIDE 20 MG/2 ML VIAL IVP SCH (09:20)
[2019-06-22] MEDS: VALPROATE ACID 250 MG/5 ML ORAL SOLUTION PEG SCH ×2 (09:20→21:11)
[2019-06-22] MEDS: VENLAFAXINE 50 MG TABLET. PEG SCH ×2 (09:20→21:11)
[2019-06-22] MEDS: CHOLECALCIFEROL (VITAMIN D3) 1,000 UNIT TABLET PEG SCH (09:21)
[2019-06-22] MEDS: GABAPENTIN 250 MG/5 ML ORAL SOLUTION. PEG SCH ×2 (09:21→21:11)
[2019-06-22] MEDS: FAMOTIDINE 20 MG TABLET PEG SCH ×2 (09:21→21:11)
[2019-06-22] MEDS: guaiFENesin 300 MG/15 ML LIQUID PEG SCH ×3 (09:22→21:11)
[2019-06-22] MEDS: CETIRIZINE 5 MG/5 ML ORAL SOLUTION. PEG SCH (09:22)
[2019-06-22] MEDS: NYSTATIN 100,000 UNITS/ML ORAL SUSPENSION 60ML BOTTLE. SWSP SCH ×4 (09:22→21:12)
[2019-06-22] MEDS: ARIPiprazole 10 MG TABLET PEG SCH (09:24)
[2019-06-22] MEDS: amLODIPine BESYLATE 5 MG TABLET PEG SCH (09:25)
[2019-06-22] MEDS: INSULIN LISPRO 300 UNITS/3 ML VIAL. SQ SCH ×3 (09:27→17:36)
--- NOTE | 2019-06-22 10:15 | RAD ---
Chest CTA History: Hypoxia, elevated d-dimer Technique: After bolus of intravenous contrast, CT imaging was performed of the chest. Multiplanar reconstruction images to include MIP reconstruction images are submitted. Exposure: One or more of the following individualized dose reduction techniques were utilized for this examination: 1. Automated exposure control 2. Adjustment of the mA and/or kV according to patient size 3. Use of iterative reconstruction technique. Comparison: None Findings: Exam is degraded by motion and also suboptimal contrast opacification of the more distal branches of the pulmonary arteries. Despite limitations of exam, there is linear appearing, filling defect in the distal right main pulmonary artery extending to the right interlobar artery. There are also some likely smaller emboli of the more distal right lower lobe branches and questionably of the left lower lobe although poorly characterized. There is mild left lower lobe infiltrate near the base with air bronchograms, mild right lower lobe atelectasis near base. There is no significant dependent pleural fluid or pneumothorax. There is some patchy mild groundglass density of the right upper lobe. There is no pericardial effusion. Thoracic aortic caliber is within normal limits. No significantly enlarged nodes are identified of the chest. There is right upper extremity PICC coursing into the superior vena cava, tip in the inferior aspect of the superior vena cava. There has been cholecystectomy. There is deviation of the heart to the left. There is multilevel thoracic spondylosis. There is gastrostomy. Impression: 1. Exam is limited. However there is pulmonary embolic disease most notable embolism in the distal right main pulmonary artery extending into the right interlobar artery. There are likely some smaller more peripheral emboli in the lower lobes greater on the right although poorly characterized on this motion degraded exam. 2. There is mild left lower lobe infiltrate near the base, also mild right lower lobe atelectasis. Critical results were discussed with patient's nurse Viola at 06/22/2019 10:10 AM, to inform doctor of findings. Electronically signed by: Vance Pitts MD (06/22/2019 10:13 AM) [id number]
[2019-06-22] MEDS: APIXABAN 5 MG TABLET. PO SCH ×2 (12:52→21:12)
[2019-06-22] MEDS: VANCOMYCIN PER PHARMACY MC PRN (13:27)
[2019-06-22] MEDS ORDERED: ANTI-COAG MONITOR BY PHARMACY. MC PRN (13:30)
--- NOTE | 2019-06-22 14:34 | PN ---
DATE: 06/22/2019 SUBJECTIVE: The patient is resting, slightly propped up in bed, in no apparent respiratory distress. She has no further episodes of cough or phlegm. Denied any chest pain. Her CT angio of the chest showed that she does have pulmonary embolic disease, most notable embolism in the distal right main pulmonary artery extending into the right interlobar artery. There are likely some smaller more peripheral emboli in the lower lobes, greater on the right, although poorly characterized. There is mild left lower lobe infiltrate near the face and also mild right lower lobe atelectasis. PHYSICAL EXAMINATION: GENERAL: When I examined her this morning, she was resting, slightly propped up in bed, in no apparent respiratory distress. No pallor, jaundice, cyanosis or thyromegaly. No jugular venous distention. No limb edema. VITAL SIGNS: Her heart rate was 104, blood pressure was 127/68, temperature was 97.8, respiratory rate was 15 and oxygen saturation was 98% on 2 liters of oxygen. HEAD, EYES, EARS, NOSE AND THROAT: Showed normocephalic, atraumatic. NECK: Supple. HEART: Showed normal first and second heart sounds. No gallop or murmur. CHEST: Shows central trachea, equal bilateral expansion, air entry, vesicular sounds and crepitation mostly in the left side posteriorly. ABDOMEN: Distended, soft with gastrostomy tube in place. NEUROLOGIC: She is awake, alert, responding appropriately. All cranial nerves are intact. She moves extremities without difficulty. She ambulates with a walker. Her intake over the last 24 hours was 1300, no output was recorded. LABORATORY DATA: Her lab work this morning showed a serum sodium of 145, potassium 3.7, chloride 105, bicarbonate 36, anion gap of 4, BUN 15, creatinine 1, estimated GFR was 56 mL per minute. Her glucose was 96, calcium was 8.4. Total bilirubin was 1.2, AST was 13; ALT, alkaline phosphatase were normal. Total protein 6.4, albumin was 2.7. Her D-dimer was high at 0.95. ASSESSMENT: This is a 63-year-old female patient who was admitted with acute hypoxic respiratory failure at [facility]. Her oxygen saturation was only 83% on room air that improved to 94% on 2 liters of oxygen. She was found to have healthcare-associated pneumonia with left lower lobe infiltrate. She has also pulmonary emboli, mostly in the right side. OTHER MEDICAL PROBLEMS: Include: A. Hypertension. B. Type 2 diabetes mellitus. C. Hypothyroidism. D. Bronchial asthma. E. Chronic kidney disease. F. Traumatic brain injury. G. Corkscrew esophagus, dysphagia. PLAN: To continue with meropenem and vancomycin. We did start her on Eliquis 10 mg twice a day. We will continue with all other medication. We will follow her closely. We held her metformin as she was exposed to the IV contrast dye and we will decide on further management accordingly. LIZZIE NIEVES MD DR: MIGUEL/dimitri JOB#: [id number] / [id number]
[2019-06-22 20:00] LABS: VANC TR 12.3 mcg/mL (10.0-20.0)
[2019-06-22] MEDS: INSULIN GLARGINE SYRINGE. SQ SCH (21:00)
[2019-06-22] MEDS: rOPINIRole 1 MG TABLET. PEG SCH (21:11)
[2019-06-22] MEDS: traZODone 50 MG TABLET. PEG SCH (21:11)
[2019-06-22] MEDS: MELATONIN 3 MG TABLET PEG PRN (21:11)
[2019-06-22] MEDS: ATORVASTATIN CALCIUM 20 MG TABLET PEG SCH (21:11)
--- NOTE | 2019-06-22 22:43 | PDOC ---
Exam Note: Bradford Note: Please also refer to the separate dictated note~for this date of service dictated separately.~Patient seen individually. Discussed the patient with Nursing staff reviewed the chart.~Reviewed interim history and current functioning. Reviewed vital signs,~Labs/ Radiology~and current medications noted below. Continue current treatment with the changes noted in the dictated addendum note Assessment: Vital Signs/I&O: Vital Signs Date Time Temp Pulse Resp B/P (MAP) Pulse Ox O2 Delivery O2 Flow Rate FiO2 06/22/19 21:38 97 Nasal Cannula 2.0 06/22/19 19:13 98.8 101 18 129/76 (93) I & O 06/21/19 06/21/19 06/22/19 15:00 23:00 07:00 Intake Total 600 ml 100 ml 700 ml Balance 600 ml 100 ml 700 ml Labs: Laboratory Tests Test 06/22/19 05:52 06/22/19 07:35 06/22/19 11:39 06/22/19 17:13 White Blood Count 4.3 x10^3/uL (4.0-11.0) Red Blood Count 3.84 x10^6/uL (3.50-5.40) Hemoglobin 11.9 g/dL (12.0-15.5) L Hematocrit 36.3 % (36.0-47.0) Mean Corpuscular Volume 94 fL (79-100) Mean Corpuscular Hemoglobin 31 pg (25-35) Mean Corpuscular Hemoglobin Concent 33 g/dL (31-37) Red Cell Distribution Width 17.3 % (11.5-14.5) H Platelet Count 152 x10^3/uL (140-400) Sodium Level 145 mmol/L (136-145) Potassium Level 3.7 mmol/L (3.5-5.1) Chloride Level 105 mmol/L (98-107) Carbon Dioxide Level 36 mmol/L (21-32) H Anion Gap 4 (6-14) L Blood Urea Nitrogen 15 mg/dL (7-20) Creatinine 1.0 mg/dL (0.6-1.0) Estimated GFR (Cockcroft-Gault) 56.4 BUN/Creatinine Ratio 15 (6-20) Glucose Level 96 mg/dL (70-99) Calcium Level 8.4 mg/dL (8.5-10.1) L Total Bilirubin 1.2 mg/dL (0.2-1.0) H Aspartate Amino Transferase (AST) 13 U/L (15-37) L Alanine Aminotransferase (ALT) 14 U/L (14-59) Alkaline Phosphatase 58 U/L (46-116) Total Protein 6.4 g/dL (6.4-8.2) Albumin 2.7 g/dL (3.4-5.0) L Albumin/Globulin Ratio 0.7 (1.0-1.7) L Glucose (Fingerstick) 92 mg/dL (70-99) 96 mg/dL (70-99) 97 mg/dL (70-99) Test 06/22/19 19:16 06/22/19 19:30 Glucose (Fingerstick) 112 mg/dL (70-99) H Vancomycin Level Trough 12.3 mcg/mL (10.0-20.0) Vancomycin Last Dose Date 06-22-2019 Vancomycin Last Dose Time 0100 Current Medications: Meds: Current Medications Medications (Trade) Dose Ordered Sig/Earnest Route PRN Reason Start Time Stop Time Status Last Admin Dose Admin Vancomycin HCl 2 gm/Sodium Chloride 500 ml @ 250 mls/hr Q18H IV 06/22/19 01:00 06/22/19 20:11 Vancomycin HCl (Vancomycin Trough Level) 1 each 1X ONCE MC 06/22/19 18:30 06/22/19 18:31 DC 06/22/19 18:30 Iohexol (Omnipaque 350 Mg/ml) 100 ml 1X ONCE IV 06/22/19 08:15 06/22/19 08:23 DC 06/22/19 08:55 Apixaban (Eliquis) 10 mg BID PO 06/22/19 12:00 06/28/19 21:01 06/22/19 21:12 I have reviewed the current psychotropics carefully including drug interactions. Risk benefit ratio favors no change other than as noted in my dictated progress note. Diagnosis: Problems: (1) Attention deficit disorder with hyperactivity (2) Anxiety disorder (3) Major depressive disorder, recurrent episode (4) Impulse control disorder (5) Personality disorder in adult (6) Psychosis, atypical KADEN ROSSI MD Jun 22, 2019 22:43
[2019-06-23] MEDS: IPRATRPIUM/ALBUTEROL 0.5/2.5MG 3 ML NEBU. NEB SCH ×4 (04:29→20:49)
[2019-06-23] MEDS: MEROPENEM 1 GM in IV NORMAL SALINE 100ML 100 ML IV SCH ×3 (05:06→21:55)
[2019-06-23 05:26] LABS: HEMATOCRIT 36.6 % (36.0-47.0); HEMOGLOBIN 11.7 g/dL (12.0-15.5); RED BLOOD COUNT 3.88 x10^6/uL (3.50-5.40); RED CELL DISTRIBUTION WIDTH 17.7 % (11.5-14.5); WHITE BLOOD COUNT 4.1 x10^3/uL (4.0-11.0)
[2019-06-23 05:32] LABS: CALCIUM 8.5 mg/dL (8.5-10.1); CREATININE 0.9 mg/dL (0.6-1.0); GFR 63.7; POTASSIUM 3.9 mmol/L (3.5-5.1)
[2019-06-23 05:42] VITALS: BP 139/79
[2019-06-23] MEDS: METOCLOPRAMIDE HCL 10 MG/10 ML SOLUTION. PEG SCH ×3 (07:40→17:20)
[2019-06-23] MEDS: LEVOTHYROXINE 125 MCG TABLET PEG SCH (07:40)
[2019-06-23] MEDS: METHYLPHENIDATE HCL 5 MG TABLET PEG SCH ×2 (07:41→11:35)
[2019-06-23] MEDS: FAMOTIDINE 20 MG TABLET PEG SCH ×2 (07:45→21:08)
[2019-06-23] MEDS: CHOLECALCIFEROL (VITAMIN D3) 1,000 UNIT TABLET PEG SCH (07:46)
[2019-06-23] MEDS: APIXABAN 5 MG TABLET. PO SCH ×2 (07:46→21:08)
[2019-06-23] MEDS: FUROSEMIDE 20 MG/2 ML VIAL IVP SCH (07:46)
[2019-06-23] MEDS: ARIPiprazole 10 MG TABLET PEG SCH (07:46)
[2019-06-23] MEDS: POTASSIUM BICARB 20 MEQ EFFERVESCENT TABLET. PEG SCH ×3 (07:47→17:20)
[2019-06-23] MEDS: amLODIPine BESYLATE 5 MG TABLET PEG SCH (07:47)
[2019-06-23] MEDS: VENLAFAXINE 50 MG TABLET. PEG SCH ×2 (07:50→21:07)
[2019-06-23] MEDS: guaiFENesin 300 MG/15 ML LIQUID PEG SCH ×3 (07:50→21:08)
[2019-06-23] MEDS: VALPROATE ACID 250 MG/5 ML ORAL SOLUTION PEG SCH ×2 (07:50→21:07)
[2019-06-23] MEDS: NYSTATIN 100,000 UNITS/ML ORAL SUSPENSION 60ML BOTTLE. SWSP SCH ×4 (07:53→21:50)
[2019-06-23] MEDS: GABAPENTIN 250 MG/5 ML ORAL SOLUTION. PEG SCH ×2 (08:03→21:08)
[2019-06-23] MEDS: CETIRIZINE 5 MG/5 ML ORAL SOLUTION. PEG SCH (08:03)
[2019-06-23] MEDS: INSULIN LISPRO 300 UNITS/3 ML VIAL. SQ SCH ×3 (08:31→17:00)
[2019-06-23 10:50] VITALS: BP 141/67
[2019-06-23 14:39] VITALS: BP 150/83
[2019-06-23 19:51] VITALS: BP 150/74
[2019-06-23] MEDS: INSULIN GLARGINE SYRINGE. SQ SCH (21:00)
[2019-06-23] MEDS: traZODone 50 MG TABLET. PEG SCH (21:07)
[2019-06-23] MEDS: ATORVASTATIN CALCIUM 20 MG TABLET PEG SCH (21:07)
[2019-06-23] MEDS: rOPINIRole 1 MG TABLET. PEG SCH (21:08)
--- NOTE | 2019-06-23 21:16 | PDOC ---
Exam Note: Bradford Note: Please also refer to the separate dictated note~for this date of service dictated separately.~Patient seen individually. Discussed the patient with Nursing staff reviewed the chart.~Reviewed interim history and current functioning. Reviewed vital signs,~Labs/ Radiology~and current medications noted below. Continue current treatment with the changes noted in the dictated addendum note Assessment: Vital Signs/I&O: Vital Signs Date Time Temp Pulse Resp B/P (MAP) Pulse Ox O2 Delivery O2 Flow Rate FiO2 06/23/19 20:50 96 Nasal Cannula 2.0 06/23/19 19:51 97.7 105 16 150/74 (99) I & O 06/22/19 06/22/19 06/23/19 15:00 23:00 07:00 Intake Total 1000 ml 1200 ml 100 ml Output Total 1200 ml 400 ml Balance -200 ml 800 ml 100 ml Labs: Laboratory Tests Test 06/23/19 05:15 06/23/19 07:47 06/23/19 11:33 06/23/19 17:06 White Blood Count 4.1 x10^3/uL (4.0-11.0) Red Blood Count 3.88 x10^6/uL (3.50-5.40) Hemoglobin 11.7 g/dL (12.0-15.5) L Hematocrit 36.6 % (36.0-47.0) Mean Corpuscular Volume 94 fL (79-100) Mean Corpuscular Hemoglobin 30 pg (25-35) Mean Corpuscular Hemoglobin Concent 32 g/dL (31-37) Red Cell Distribution Width 17.7 % (11.5-14.5) H Platelet Count 158 x10^3/uL (140-400) Sodium Level 144 mmol/L (136-145) Potassium Level 3.9 mmol/L (3.5-5.1) Chloride Level 104 mmol/L (98-107) Carbon Dioxide Level 36 mmol/L (21-32) H Anion Gap 4 (6-14) L Blood Urea Nitrogen 14 mg/dL (7-20) Creatinine 0.9 mg/dL (0.6-1.0) Estimated GFR (Cockcroft-Gault) 63.7 Glucose Level 104 mg/dL (70-99) H Calcium Level 8.5 mg/dL (8.5-10.1) Glucose (Fingerstick) 112 mg/dL (70-99) H 112 mg/dL (70-99) H 62 mg/dL (70-99) L Test 06/23/19 17:30 Glucose (Fingerstick) 103 mg/dL (70-99) H Current Medications: Meds: Current Medications Medications (Trade) Dose Ordered Sig/Earnest Route PRN Reason Start Time Stop Time Status Last Admin Dose Admin Apixaban (Eliquis) 5 mg BID PO 06/23/19 21:00 06/23/19 21:08 I have reviewed the current psychotropics carefully including drug interactions. Risk benefit ratio favors no change other than as noted in my dictated progress note. Diagnosis: Problems: (1) Anxiety disorder (2) Major depressive disorder, recurrent episode (3) Impulse control disorder (4) Personality disorder in adult (5) Psychosis, atypical (6) Attention deficit disorder with hyperactivity (7) Attention deficit disorder (ADD) (8) Bipolar affective disorder, mixed KADEN ROSSI MD Jun 23, 2019 21:16
[2019-06-23] MEDS: MELATONIN 3 MG TABLET PEG PRN (21:54)
[2019-06-23 23:23] VITALS: BP 144/76
[2019-06-24] MEDS: IPRATRPIUM/ALBUTEROL 0.5/2.5MG 3 ML NEBU. NEB SCH ×4 (05:36→21:22)
[2019-06-24] MEDS: MEROPENEM 1 GM in IV NORMAL SALINE 100ML 100 ML IV SCH ×3 (05:52→21:41)
[2019-06-24 05:58] VITALS: BP 126/68
[2019-06-24] MEDS: NYSTATIN 100,000 UNITS/ML ORAL SUSPENSION 60ML BOTTLE. SWSP SCH ×4 (07:58→21:02)
[2019-06-24] MEDS: INSULIN LISPRO 300 UNITS/3 ML VIAL. SQ SCH ×3 (08:00→17:00)
[2019-06-24] MEDS: POTASSIUM BICARB 20 MEQ EFFERVESCENT TABLET. PEG SCH ×3 (08:26→17:13)
[2019-06-24] MEDS: GABAPENTIN 250 MG/5 ML ORAL SOLUTION. PEG SCH ×2 (08:27→21:01)
[2019-06-24] MEDS: CETIRIZINE 5 MG/5 ML ORAL SOLUTION. PEG SCH (08:27)
[2019-06-24] MEDS: METOCLOPRAMIDE HCL 10 MG/10 ML SOLUTION. PEG SCH ×3 (08:27→17:14)
[2019-06-24] MEDS: VENLAFAXINE 50 MG TABLET. PEG SCH ×2 (08:28→21:02)
[2019-06-24] MEDS: guaiFENesin 300 MG/15 ML LIQUID PEG SCH ×3 (08:28→21:01)
[2019-06-24] MEDS: VALPROATE ACID 250 MG/5 ML ORAL SOLUTION PEG SCH ×2 (08:28→21:02)
[2019-06-24] MEDS: METHYLPHENIDATE HCL 5 MG TABLET PEG SCH ×2 (08:29→12:06)
[2019-06-24] MEDS: APIXABAN 5 MG TABLET. PO SCH ×2 (08:29→21:02)
[2019-06-24] MEDS: FAMOTIDINE 20 MG TABLET PEG SCH ×2 (08:29→21:02)
[2019-06-24] MEDS: CHOLECALCIFEROL (VITAMIN D3) 1,000 UNIT TABLET PEG SCH (08:29)
[2019-06-24] MEDS: amLODIPine BESYLATE 5 MG TABLET PEG SCH (08:30)
[2019-06-24] MEDS: LEVOTHYROXINE 125 MCG TABLET PEG SCH (08:30)
[2019-06-24] MEDS: ARIPiprazole 10 MG TABLET PEG SCH (08:30)
[2019-06-24 11:00] VITALS: BP 130/75
--- NOTE | 2019-06-24 15:00 | PN ---
DATE: 06/22/2019 PSYCHIATRIC PROGRESS NOTE This late entry 06/22/2019 covers elements not covered in my initial note. SUBJECTIVE: I met with the patient evening of 06/22/2019. The patient is a 63-year-old female transferred from [facility] to the ICU on 06/21/2019, consequent to pneumonia/pleural effusion and respiratory distress. She was being stabilized on the [facility] for her bipolar disorder, personality disorder, status post suicide attempt. She has remained one-on-one status in the ICU bed 2 and I have been asked to consult for psychiatric recommendations and followup as she has been medically stabilized for the above. The patient was seen individually, discussed with nursing staff, reviewed the chart. Per nursing report, the patient has been more appropriate. Denies active suicidal ideation, remains on line of sight, but not one-on-one directly. She is showing some medical improvement. REVIEW OF SYSTEMS: Positive for impaired ambulation, difficulty with respiration. No CV, , GI system symptoms on review. She clearly recognized me. MENTAL STATUS EXAM: Reasonably oriented. Speech has some latency, coherent. Abstraction fair, computation impaired, language function intact, attention span short. Mood and affect somewhat withdrawn, but no suicidal ideation. LABORATORY DATA: Reviewed. IMPRESSION: Bipolar disorder, mixed with psychotic features; major depressive disorder; personality disorder; anxiety disorder, unspecified. Rest as above. PLAN: From a psychiatric standpoint, I would continue all her current psychotropics including the Depakote, which was being adjusted on the [facility] to reach therapeutic level. Continue rest unchanged. KADEN ROSSI MD DR: LAWSON/dimitri JOB#: [id number] / [id number]
[2019-06-24 15:01] VITALS: BP 130/75
--- NOTE | 2019-06-24 15:04 | PN ---
DATE: 06/23/2019 This late entry 06/23/2019 covers elements not covered in my initial note. SUBJECTIVE: I met with the patient evening of 06/23/2019. Per nursing report, the patient is psychiatrically doing better. She remains on one-on-one site, no longer on one-on-one status. Adjust on site distance from the nursing staff. She is showing some medical improvement for the pneumonia. REVIEW OF SYSTEMS: Positive for some tiredness, impaired ambulation. No CV, GI, system symptoms on review. MENTAL STATUS EXAMINATION: The patient is reasonably oriented. Speech coherent, quite verbal, forthcoming, asking if she could return home after she is medically stabilized in the ICU. We will have to reassess this once she is medically stable. Given the severity of her symptoms prompting admission [facility] including the suicide attempt, despite intensive outpatient treatment. Speech coherent, has some latency. Abstraction fair, computation impaired, language function intact. Mood and affect is improved. No active suicidal ideation. LABORATORY DATA: Reviewed. IMPRESSION: Bipolar disorder, depressed with psychotic features in partial remission, personality disorder, unspecified. Rest as above. PLAN: Continue psychotropics from initial note including Depakote. Rest unchanged for now. KADEN ROSSI MD DR: LAWSON/dimitri JOB#: [id number] / [id number]
[2019-06-24] MEDS: metFORMIN 500 MG TABLET PO SCH (17:13)
[2019-06-24 20:00] VITALS: BP 132/73
[2019-06-24] MEDS: METOPROLOL TART IMMED RELEASE 50 MG TABLET PO SCH (21:02)
[2019-06-24] MEDS: ATORVASTATIN CALCIUM 20 MG TABLET PEG SCH (21:02)
[2019-06-24] MEDS: MELATONIN 3 MG TABLET PEG PRN (21:02)
[2019-06-24] MEDS: traZODone 50 MG TABLET. PEG SCH (21:02)
[2019-06-24] MEDS: rOPINIRole 1 MG TABLET. PEG SCH (21:02)
--- NOTE | 2019-06-24 21:24 | PDOC ---
Exam Note: Bradford Note: Please also refer to the separate dictated note~for this date of service dictated separately.~Patient seen individually. Discussed the patient with Nursing staff reviewed the chart.~Reviewed interim history and current functioning. Reviewed vital signs,~Labs/ Radiology~and current medications noted below. Continue current treatment with the changes noted in the dictated addendum note Assessment: Vital Signs/I&O: Vital Signs Date Time Temp Pulse Resp B/P (MAP) Pulse Ox O2 Delivery O2 Flow Rate FiO2 06/24/19 21:22 98 Nasal Cannula 2.0 06/24/19 21:02 80 132/73 06/24/19 20:00 97.6 16 I & O 0 06/23/19 06/23/19 06/24/19 15:00 23:00 07:00 Intake Total 1310 ml 500 ml 100 ml Output Total 1800 ml Balance 1310 ml -1300 ml 100 ml Labs: Laboratory Tests Test 06/24/19 08:08 06/24/19 12:23 06/24/19 17:12 Glucose (Fingerstick) 131 mg/dL (70-99) H 112 mg/dL (70-99) H 76 mg/dL (70-99) Current Medications: Meds: Current Medications Medications (Trade) Dose Ordered Sig/Earnest Route PRN Reason Start Time Stop Time Status Last Admin Dose Admin Metformin HCl (Glucophage) 500 mg BIDWMEALS PO 06/24/19 17:00 06/24/19 17:13 Metoprolol Tartrate (Lopressor) 50 mg BID PO 06/24/19 21:00 06/24/19 21:02 I have reviewed the current psychotropics carefully including drug interactions. Risk benefit ratio favors no change other than as noted in my dictated progress note. Diagnosis: Problems: (1) Anxiety disorder (2) Major depressive disorder, recurrent episode (3) Impulse control disorder (4) Personality disorder in adult (5) Psychosis, atypical (6) Attention deficit disorder with hyperactivity (7) Attention deficit disorder (ADD) (8) Bipolar affective disorder, mixed KADEN ROSSI MD Jun 24, 2019 21:24
[2019-06-24] MEDS: INSULIN GLARGINE SYRINGE. SQ SCH (21:34)
--- NOTE | 2019-06-24 23:16 | PN ---
DATE: 06/24/2019 ATTENDING PHYSICIAN: Dr. Up. SUBJECTIVE: Less dyspneic with minimal cough. No new complaints. Objective finding, her resting heart rate is still 103 per minute. It appears to be a sinus tachycardia. PHYSICAL EXAMINATION: VITAL SIGNS: Blood pressure is 126/68. She is afebrile. Her oxygen saturation 96% on 2 liters of supplemental oxygen by nasal cannula. HEENT: Pupils are reactive. Sclerae nonicteric. Oropharynx clear. NECK: Supple. No bruits. LUNGS: Good breath sounds with minimal rhonchi. CARDIOVASCULAR: Showed distant heart tones. No gallops. Peripheral pulses are palpable and full. ABDOMEN: Obese, protuberant. No organomegaly. Bowel sounds are hypoactive. EXTREMITIES: Show trace edema. NEUROLOGIC: Focally intact. No deficits. ASSESSMENT: 1. A 63-year-old female with intermediate acquired pneumonia. 2. Incidental finding of pulmonary emboli. 3. Hypoxemia requiring supplemental oxygen. 4. Tube feedings due to her esophageal dysfunction. 5. Placement of a PEG. 6. Obesity. 7. Traumatic brain injury. 8. Underlying psychiatric issues. PLAN: 1. Keep in ICU. 2. I reviewed her meds. I would recommend substituting Lopressor 50 mg b.i.d. for the amlodipine to help with blood pressure and lower her heart rate. 3. Continue Eliquis as ordered. 4. Continue antibiotics. 5. Continue psychiatric meds. 6. Keep in unit today. Decision to transfer back to Behavioral Unit next week. MICHAEL NAPIER MD DR: FLOR/dimitri JOB#: [id number] / [id number] LIZZIE Ramos MD
[2019-06-25 00:01] VITALS: BP 118/71
[2019-06-25 04:00] VITALS: BP 113/69
[2019-06-25] MEDS: IPRATRPIUM/ALBUTEROL 0.5/2.5MG 3 ML NEBU. NEB SCH ×4 (05:15→20:12)
[2019-06-25] MEDS: MEROPENEM 1 GM in IV NORMAL SALINE 100ML 100 ML IV SCH ×3 (05:23→21:44)
[2019-06-25 07:00] VITALS: BP 117/82
[2019-06-25 08:48] LABS: BASO % 1 % (0-3); EOS # 0.2 x10^3/uL (0.0-0.7); EOS % 6 % (0-3); HEMATOCRIT 38.3 % (36.0-47.0); HEMOGLOBIN 12.4 g/dL (12.0-15.5); LYMPH # 0.8 x10^3/uL (1.0-4.8); LYMPH % 22 % (24-48); MEAN CORPUSCULAR HEMOGLOBIN 31 pg (25-35); MEAN CORPUSCULAR HGB CONC 33 g/dL (31-37); MEAN CORPUSCULAR VOLUME 95 fL (79-100); MONO # 0.4 x10^3/uL (0.0-1.1); MONO % 11 % (0-9); NEUT # 2.4 x10^3uL (1.8-7.7); NEUT % 61 % (31-73); PLATELET COUNT 167 x10^3/uL (140-400); RED BLOOD COUNT 4.05 x10^6/uL (3.50-5.40); RED CELL DISTRIBUTION WIDTH 17.3 % (11.5-14.5); WHITE BLOOD COUNT 3.9 x10^3/uL (4.0-11.0)
[2019-06-25 08:58] LABS: ALBUMIN 2.7 g/dL (3.4-5.0); ALBUMIN/GLOBULIN RATIO 0.7 (1.0-1.7); CALCIUM 8.8 mg/dL (8.5-10.1); CREATININE 0.9 mg/dL (0.6-1.0); GFR 63.7; POTASSIUM 4.2 mmol/L (3.5-5.1); TOTAL BILIRUBIN 0.7 mg/dL (0.2-1.0); TOTAL PROTEIN 6.7 g/dL (6.4-8.2)
[2019-06-25] MEDS: METHYLPHENIDATE HCL 5 MG TABLET PEG SCH ×2 (09:21→12:29)
[2019-06-25] MEDS: metFORMIN 500 MG TABLET PO SCH ×2 (09:24→17:04)
[2019-06-25] MEDS: METOCLOPRAMIDE HCL 10 MG/10 ML SOLUTION. PEG SCH ×3 (09:24→17:04)
[2019-06-25] MEDS: POTASSIUM BICARB 20 MEQ EFFERVESCENT TABLET. PEG SCH ×3 (09:24→17:04)
[2019-06-25] MEDS: LEVOTHYROXINE 125 MCG TABLET PEG SCH (09:24)
[2019-06-25] MEDS: ARIPiprazole 10 MG TABLET PEG SCH (09:27)
[2019-06-25] MEDS: VENLAFAXINE 50 MG TABLET. PEG SCH ×2 (09:28→21:25)
[2019-06-25] MEDS: VALPROATE ACID 250 MG/5 ML ORAL SOLUTION PEG SCH ×2 (09:28→21:22)
[2019-06-25] MEDS: guaiFENesin 300 MG/15 ML LIQUID PEG SCH ×3 (09:29→21:22)
[2019-06-25] MEDS: FAMOTIDINE 20 MG TABLET PEG SCH ×2 (09:29→21:23)
[2019-06-25] MEDS: APIXABAN 5 MG TABLET. PO SCH ×2 (09:29→21:26)
[2019-06-25] MEDS: GABAPENTIN 250 MG/5 ML ORAL SOLUTION. PEG SCH ×2 (09:29→21:23)
[2019-06-25] MEDS: CETIRIZINE 5 MG/5 ML ORAL SOLUTION. PEG SCH (09:29)
[2019-06-25] MEDS: METOPROLOL TART IMMED RELEASE 50 MG TABLET PO SCH ×2 (09:30→21:25)
[2019-06-25] MEDS: NYSTATIN 100,000 UNITS/ML ORAL SUSPENSION 60ML BOTTLE. SWSP SCH ×4 (09:30→21:00)
[2019-06-25] MEDS: CHOLECALCIFEROL (VITAMIN D3) 1,000 UNIT TABLET PEG SCH (09:31)
[2019-06-25] MEDS: INSULIN LISPRO 300 UNITS/3 ML VIAL. SQ SCH ×3 (09:35→17:00)
--- NOTE | 2019-06-25 09:35 | PN ---
DATE: 06/23/2019 ATTENDING PHYSICIAN: Dr. Up. CHIEF COMPLAINT: Shortness of breath. SUBJECTIVE: The patient is on the potty. She is complaining about having to go frequently because of Lasix. She appears euvolemic. She denied any further dyspnea. She denied any chest pain or pleuritic-type pain. OBJECTIVE FINDINGS: VITAL SIGNS: Her blood pressure today is 138/79, pulse is 82 and regular. She is afebrile. Oxygen saturation 97% on 2 liters. HEENT: Head is without trauma. Pupils are reactive. Sclerae are nonicteric. Oropharynx clear. NECK: Supple, no bruits. LUNGS: Good breath sounds at the bases. CARDIOVASCULAR: Showed distant heart tones. No evidence of gallop. Peripheral pulses are palpable. ABDOMEN: Obese, protuberant. No organomegaly. EXTREMITIES: Show trace edema. NEUROLOGIC: Focally intact. DIAGNOSTIC DATA: Chest x-ray as noted. CT of the chest showed telltale pulmonary emboli, mainly involving the right side. There is also infiltrate at the base consistent with pneumonia. LABORATORY STUDIES: Hemoglobin maintained at 11.7 g/dL with a white count of 4100. ASSESSMENT: 1. A 63-year-old female with hypoxemia. 2. Community-acquired pneumonia. 3. Pulmonary emboli, right lung. 4. Major depression. 5. Morbid obesity. 6. Hypoxemia. PLAN: 1. Continue meropenem as ordered. 2. We can discontinue the vancomycin as I do not think this is necessary. 3. Continue Eliquis at 5 mg b.i.d. She has good doses. 4. Keep in ICU. 5. Hold Lasix. 6. Simplification of meds. 7. Diet as tolerated. MICHAEL NAPIER MD DR: FLOR/dimitri JOB#: [id number] / [id number] LIZZIE Ramos MD
[2019-06-25 12:00] VITALS: BP 122/69
[2019-06-25 16:44] VITALS: BP 142/71
[2019-06-25] MEDS: traZODone 50 MG TABLET. PEG SCH (21:25)
[2019-06-25] MEDS: rOPINIRole 1 MG TABLET. PEG SCH (21:25)
[2019-06-25] MEDS: ATORVASTATIN CALCIUM 20 MG TABLET PEG SCH (21:26)
[2019-06-25] MEDS: INSULIN GLARGINE SYRINGE. SQ SCH (21:27)
[2019-06-25 21:29] VITALS: BP 117/66
--- NOTE | 2019-06-25 21:45 | PDOC ---
Exam Note: Bradford Note: Please also refer to the separate dictated note~for this date of service dictated separately.~Patient seen individually. Discussed the patient with Nursing staff reviewed the chart.~Reviewed interim history and current functioning. Reviewed vital signs,~Labs/ Radiology~and current medications noted below. Continue current treatment with the changes noted in the dictated addendum note Assessment: Vital Signs/I&O: Vital Signs Date Time Temp Pulse Resp B/P (MAP) Pulse Ox O2 Delivery O2 Flow Rate FiO2 06/25/19 21:29 97.9 74 16 117/66 (83) 91 Room Air 06/25/19 20:12 2.0 I & O 06/24/19 06/24/19 06/25/19 15:00 23:00 07:00 Intake Total 480 ml 790 ml 100 ml Balance 480 ml 790 ml 100 ml Labs: Laboratory Tests Test 06/25/19 08:15 06/25/19 12:33 06/25/19 17:02 06/25/19 20:24 White Blood Count 3.9 x10^3/uL (4.0-11.0) L Red Blood Count 4.05 x10^6/uL (3.50-5.40) Hemoglobin 12.4 g/dL (12.0-15.5) Hematocrit 38.3 % (36.0-47.0) Mean Corpuscular Volume 95 fL (79-100) Mean Corpuscular Hemoglobin 31 pg (25-35) Mean Corpuscular Hemoglobin Concent 33 g/dL (31-37) Red Cell Distribution Width 17.3 % (11.5-14.5) H Platelet Count 167 x10^3/uL (140-400) Neutrophils (%) (Auto) 61 % (31-73) Lymphocytes (%) (Auto) 22 % (24-48) L Monocytes (%) (Auto) 11 % (0-9) H Eosinophils (%) (Auto) 6 % (0-3) H Basophils (%) (Auto) 1 % (0-3) Neutrophils # (Auto) 2.4 x10^3uL (1.8-7.7) Lymphocytes # (Auto) 0.8 x10^3/uL (1.0-4.8) L Monocytes # (Auto) 0.4 x10^3/uL (0.0-1.1) Eosinophils # (Auto) 0.2 x10^3/uL (0.0-0.7) Basophils # (Auto) 0.0 x10^3/uL (0.0-0.2) Sodium Level 144 mmol/L (136-145) Potassium Level 4.2 mmol/L (3.5-5.1) Chloride Level 104 mmol/L (98-107) Carbon Dioxide Level 35 mmol/L (21-32) H Anion Gap 5 (6-14) L Blood Urea Nitrogen 15 mg/dL (7-20) Creatinine 0.9 mg/dL (0.6-1.0) Estimated GFR (Cockcroft-Gault) 63.7 BUN/Creatinine Ratio 17 (6-20) Glucose Level 114 mg/dL (70-99) H Calcium Level 8.8 mg/dL (8.5-10.1) Total Bilirubin 0.7 mg/dL (0.2-1.0) Aspartate Amino Transferase (AST) 33 U/L (15-37) Alanine Aminotransferase (ALT) 26 U/L (14-59) Alkaline Phosphatase 56 U/L (46-116) Total Protein 6.7 g/dL (6.4-8.2) Albumin 2.7 g/dL (3.4-5.0) L Albumin/Globulin Ratio 0.7 (1.0-1.7) L Glucose (Fingerstick) 129 mg/dL (70-99) H 85 mg/dL (70-99) 97 mg/dL (70-99) Current Medications: Meds: Current Medications Medications (Trade) Dose Ordered Sig/Earnest Route PRN Reason Start Time Stop Time Status Last Admin Dose Admin Apixaban (Eliquis) 10 mg BID PO 06/25/19 09:00 07/01/19 23:00 06/25/19 21:26 I have reviewed the current psychotropics carefully including drug interactions. Risk benefit ratio favors no change other than as noted in my dictated progress note. Diagnosis: Problems: (1) Anxiety disorder (2) Major depressive disorder, recurrent episode (3) Impulse control disorder (4) Personality disorder in adult (5) Psychosis, atypical (6) Attention deficit disorder with hyperactivity (7) Attention deficit disorder (ADD) (8) Bipolar affective disorder, mixed KADEN ROSSI MD Jun 25, 2019 21:45
--- NOTE | 2019-06-25 22:37 | PN ---
DATE: 06/25/2019 SUBJECTIVE: The patient is resting, slightly propped up in bed, in no apparent respiratory distress. She is awake and alert. On questioning her, she said she is generally feeling much better. She continued to have pleuritic chest pain in the left side and tramadol apparently helps with that. She has been up and about to the bedside commode; however, she continued to require 2 liters of oxygen, although when I saw her this afternoon, her oxygen saturation was 98% and she could probably be weaned off slowly from the oxygen. PHYSICAL EXAMINATION: GENERAL: When I examined her, she was pale, but no jaundice, cyanosis, or thyromegaly. No jugular venous distention. No limb edema. VITAL SIGNS: Her heart rate was 69, blood pressure was 117/82, temperature was 98, respiratory rate was 17, and oxygen saturation was 99% on 2 liters of oxygen. HEAD, EYES, EARS, NOSE AND THROAT: Showed normocephalic, atraumatic. NECK: Supple. HEART: Showed normal first and second heart sounds. No gallop or murmur. CHEST: Showed central trachea, equal bilateral expansion, air entry, expansion with crepitation mostly on the left side posteriorly. I could not appreciate any rhonchi. ABDOMEN: Distended, soft, nontender. NEUROLOGIC: She is awake, alert, responding appropriately. All cranial nerves are intact. She moves extremities without difficulty. She ambulates without assistance or assistive devices. Her intake was 1900, output was 1800. LABORATORY DATA: As of this morning, her white cell count was 3900, hemoglobin 12, hematocrit 38, MCV 95, and platelet count of 167,000. Her chemistry showed a serum sodium 144, potassium 4.2, chloride 104, bicarbonate 35, anion gap of 5, BUN 15, creatinine 0.9, estimated GFR was 64 mL per minute. Her glucose 114, calcium was 8.8. Total bilirubin, AST, ALT, alkaline phosphatase were normal. Her blood sugar seems to be well controlled. ASSESSMENT: 1. Acute hypoxic respiratory failure. 2. Healthcare-associated pneumonia. 3. Acute pulmonary emboli, mostly in the right side. 4. The patient has multiple other medical problems including: A. Hypertension. B. Type 2 diabetes mellitus. C. Hypothyroidism. D. Bronchial asthma. E. Chronic kidney disease. F. Traumatic brain injury. G. 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 PLAN: To continue with meropenem. Her vancomycin was discontinued. Continue with Eliquis. Continue with all other medications. Her metformin was resumed and await the evaluation by Dr. Jasmine to see whether she needs to go [facility] or can be discharged home. LIZZIE NIEVES MD DR: MIGUEL/dimitri JOB#: [id number] / [id number]
[2019-06-26] VITALS: BP 124/66
--- NOTE | 2019-06-26 00:33 | PN ---
DATE: 06/24/2019 PSYCHIATRIC PROGRESS NOTE This late entry 06/24/2019 covers the elements not covered in my initial note. SUBJECTIVE: I met with the patient in the evening of 06/24/2019 in ICU bed 2. Per nursing report, the patient is from a psychiatric standpoint, he is doing reasonably well. She has not voiced any suicidal ideation. Pneumonia seems to be resolving. REVIEW OF SYSTEMS: Some shortness of breath, impaired ambulation. No CV, , GI, eye system symptoms on review. MENTAL STATUS EXAM: Oriented to herself and situation. Speech is coherent, has some latency. Abstraction fair, computation impaired, language function intact. Mood and affect, somewhat anxious, but no suicidal ideation. No clear psychotic symptoms. LABORATORY DATA: Reviewed. IMPRESSION: Unchanged from initial note. PLAN: No change from initial note. MAN Lennox ROSSI MD DR: LAWSON/dimitri JOB#: [id number] / [id number]
[2019-06-26] MEDS: IPRATRPIUM/ALBUTEROL 0.5/2.5MG 3 ML NEBU. NEB SCH ×4 (05:18→21:05)
[2019-06-26] MEDS: MEROPENEM 1 GM in IV NORMAL SALINE 100ML 100 ML IV SCH ×2 (05:24→14:00)
[2019-06-26 05:39] VITALS: BP 133/70
[2019-06-26 06:24] LABS: CALCIUM 8.9 mg/dL (8.5-10.1); CREATININE 0.9 mg/dL (0.6-1.0); GFR 63.7; POTASSIUM 4.2 mmol/L (3.5-5.1)
[2019-06-26 07:00] VITALS: BP 143/73
[2019-06-26] MEDS: INSULIN LISPRO 300 UNITS/3 ML VIAL. SQ SCH ×3 (08:00→18:23)
[2019-06-26] MEDS: METHYLPHENIDATE HCL 5 MG TABLET PEG SCH ×2 (09:19→12:30)
[2019-06-26] MEDS: GABAPENTIN 250 MG/5 ML ORAL SOLUTION. PEG SCH ×2 (09:19→21:25)
[2019-06-26] MEDS: CETIRIZINE 5 MG/5 ML ORAL SOLUTION. PEG SCH (09:19)
[2019-06-26] MEDS: METOCLOPRAMIDE HCL 10 MG/10 ML SOLUTION. PEG SCH ×3 (09:20→17:50)
[2019-06-26] MEDS: VENLAFAXINE 50 MG TABLET. PEG SCH ×2 (09:20→21:25)
[2019-06-26] MEDS: VALPROATE ACID 250 MG/5 ML ORAL SOLUTION PEG SCH ×2 (09:20→21:25)
[2019-06-26] MEDS: ARIPiprazole 10 MG TABLET PEG SCH (09:20)
[2019-06-26] MEDS: CHOLECALCIFEROL (VITAMIN D3) 1,000 UNIT TABLET PEG SCH (09:20)
[2019-06-26] MEDS: guaiFENesin 300 MG/15 ML LIQUID PEG SCH ×3 (09:20→21:25)
[2019-06-26] MEDS: NYSTATIN 100,000 UNITS/ML ORAL SUSPENSION 60ML BOTTLE. SWSP SCH ×5 (09:21→21:45)
[2019-06-26] MEDS: APIXABAN 5 MG TABLET. PO SCH ×2 (09:21→21:26)
[2019-06-26] MEDS: metFORMIN 500 MG TABLET PO SCH ×2 (09:21→17:51)
[2019-06-26] MEDS: FAMOTIDINE 20 MG TABLET PEG SCH ×2 (09:21→21:25)
[2019-06-26] MEDS: POTASSIUM BICARB 20 MEQ EFFERVESCENT TABLET. PEG SCH ×3 (09:21→17:50)
[2019-06-26] MEDS: LEVOTHYROXINE 125 MCG TABLET PEG SCH (09:21)
[2019-06-26] MEDS: METOPROLOL TART IMMED RELEASE 50 MG TABLET PO SCH ×2 (09:22→21:26)
[2019-06-26 16:00] VITALS: BP 130/70
[2019-06-26 20:03] VITALS: BP 148/67
--- NOTE | 2019-06-26 21:15 | PDOC ---
Exam Note: [place] Note: Please also refer to the separate dictated note~for this date of service dictated separately.~Patient seen individually. Discussed the patient with Nursing staff reviewed the chart.~Reviewed interim history and current functioning. Reviewed vital signs,~Labs/ Radiology~and current medications noted below. Continue current treatment with the changes noted in the dictated addendum note Assessment: Vital Signs/I&O: Vital Signs Date Time Temp Pulse Resp B/P (MAP) Pulse Ox O2 Delivery O2 Flow Rate FiO2 06/26/19 21:07 97 Nasal Cannula 1.0 06/26/19 20:03 97.7 85 15 148/67 (94) I & O 06/25/19 06/25/19 06/26/19 15:00 23:00 07:00 Intake Total 540 ml 200 ml 100 ml Balance 540 ml 200 ml 100 ml Labs: Laboratory Tests Test 06/26/19 05:30 06/26/19 08:16 06/26/19 12:26 Sodium Level 143 mmol/L (136-145) Potassium Level 4.2 mmol/L (3.5-5.1) Chloride Level 104 mmol/L (98-107) Carbon Dioxide Level 36 mmol/L (21-32) H Anion Gap 3 (6-14) L Blood Urea Nitrogen 18 mg/dL (7-20) Creatinine 0.9 mg/dL (0.6-1.0) Estimated GFR (Cockcroft-Gault) 63.7 Glucose Level 85 mg/dL (70-99) Calcium Level 8.9 mg/dL (8.5-10.1) Glucose (Fingerstick) 84 mg/dL (70-99) 134 mg/dL (70-99) H Current Medications: I have reviewed the current psychotropics carefully including drug interactions. Risk benefit ratio favors no change other than as noted in my dictated progress note. Diagnosis: Problems: (1) Anxiety disorder (2) Major depressive disorder, recurrent episode (3) Impulse control disorder (4) Personality disorder in adult (5) Psychosis, atypical (6) Attention deficit disorder with hyperactivity (7) Bipolar affective disorder, mixed KADEN ROSSI MD Jun 26, 2019 21:15
[2019-06-26] MEDS: rOPINIRole 1 MG TABLET. PEG SCH (21:25)
[2019-06-26] MEDS: traZODone 50 MG TABLET. PEG SCH (21:25)
[2019-06-26] MEDS: ATORVASTATIN CALCIUM 20 MG TABLET PEG SCH (21:26)
[2019-06-26] MEDS: INSULIN GLARGINE SYRINGE. SQ SCH (21:26)
[2019-06-26 23:28] VITALS: BP 127/68
--- NOTE | 2019-06-27 01:20 | PN ---
DATE: 06/26/2019 SUBJECTIVE: The patient is resting slightly propped up in bed, in no apparent distress. On questioning her, she denied any complaints except occasional dizziness when she turns her head to the left. Apparently, she was seen for that by a neurologist before. Other than that, she denied any chest pain, shortness of breath, cough, phlegm or hemoptysis. She has been up and about. A decision was made to discharge her to a rehab center in [place] once she is accepted. PHYSICAL EXAMINATION: GENERAL: When I examined her this afternoon, she looked well and was clearly in no apparent respiratory distress. No pallor, jaundice, cyanosis, or thyromegaly. No jugular venous distension. No lower limb edema. VITAL SIGNS: Her heart rate was 80, blood pressure 143/73, temperature was 97.5, respiratory rate was 14 and oxygen saturation was 97% on 2 liters of oxygen. HEAD, EYES, EARS, NOSE AND THROAT: Showed normocephalic, atraumatic. NECK: Supple. HEART: Showed normal first and second heart sounds. No gallop, rub or murmur. CHEST: Clear to auscultation. No crepitation or rhonchi. ABDOMEN: Distended, soft with a gastrostomy tube in place. There is no guarding or rigidity. No organomegaly. All hernial orifice intact. Bowel sounds normal. NEUROLOGIC: She is awake, alert, responding appropriately. All cranial nerves are intact. She moves extremities without difficulty. She ambulates with a walker. Her intake over the last 24 hours was 1370, no output was recorded. LABORATORY DATA: Her serum sodium was 143, potassium 4.2, chloride 104, bicarbonate 36, anion gap of 3, BUN 18, creatinine 0.9, estimated GFR was 64 mL per minute. Her glucose was 85, calcium was 8.9. Her blood sugar has been well controlled. Her white cell count was 3900, hemoglobin 12, hematocrit 38, MCV 95, and platelet count 267,000. Her blood cultures are so far negative after 5 days. ASSESSMENT: 1. Acute hypoxic respiratory failure. The patient continued to require desaturates on exertion and she is now on 2 liters of oxygen by nasal cannula. 2. Healthcare-associated pneumonia. 3. Acute pulmonary emboli, mostly in the right side. 4. She has multiple other medical problems including: A. Hypertension that seems to be well controlled. B. Type 2 diabetes mellitus, also excellently controlled. C. Hypothyroidism. She is both clinically and biochemically euthyroid. D. Bronchial asthma, clinically quiescent. E. Chronic kidney disease, stable. F. Traumatic brain injury. G. 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 PLAN: To discontinue meropenem. I switched her to levofloxacin to be given through the feeding tube and hopefully, she can be discharged to a snf facility tomorrow. LIZZIE NIEVES MD DR: MIGUEL/dimitri JOB#: [id number] / [id number]
--- NOTE | 2019-06-27 02:29 | PN ---
DATE: 06/25/2019 PSYCHIATRIC PROGRESS NOTE This late entry 06/25/2019 covers elements not covered in my initial note. SUBJECTIVE: I met with the patient evening of 06/25/2019. Overall, per nursing report, the patient is doing better. She is slowly recovering from her pneumonia and is ambulating better with a walker, but still quite weak. She denies any clear psychotic symptoms or suicidal ideation. REVIEW OF SYSTEMS: Positive for the weakness, tiredness. No CV, , GI system symptoms on review. MENTAL STATUS EXAM: Reasonably oriented. Speech has some latency, often responses monosyllabic, coherent. Abstraction fair, computation impaired, language function intact. Mood and affect is improved. LABORATORY DATA: Reviewed. IMPRESSION: Unchanged from initial note. PLAN: No change from initial note. Once she is medically stable, we will screen her to determine whether she needs to come back to the [facility] or return home. She may also need [facility] care. We will make all these decisions post her medical stabilization. KADEN ROSSI MD DR: LAWSON/dimitri JOB#: [id number] / [id number]
[2019-06-27] MEDS: IPRATRPIUM/ALBUTEROL 0.5/2.5MG 3 ML NEBU. NEB SCH ×4 (04:53→20:48)
[2019-06-27 05:09] VITALS: BP 139/71
[2019-06-27] MEDS: levoFLOXacin 750 MG TABLET PEG SCH (06:24)
[2019-06-27] MEDS: METHYLPHENIDATE HCL 5 MG TABLET PEG SCH ×2 (07:30→12:20)
[2019-06-27] MEDS: INSULIN LISPRO 300 UNITS/3 ML VIAL. SQ SCH ×3 (08:00→16:54)
[2019-06-27] MEDS: METOCLOPRAMIDE HCL 10 MG/10 ML SOLUTION. PEG SCH ×3 (08:07→16:44)
[2019-06-27] MEDS: metFORMIN 500 MG TABLET PO SCH ×2 (08:07→16:46)
[2019-06-27] MEDS: LEVOTHYROXINE 125 MCG TABLET PEG SCH (08:07)
[2019-06-27] MEDS: POTASSIUM BICARB 20 MEQ EFFERVESCENT TABLET. PEG SCH ×3 (08:07→16:45)
[2019-06-27 09:05] VITALS: BP 137/76
[2019-06-27] MEDS: guaiFENesin 300 MG/15 ML LIQUID PEG SCH ×3 (09:50→20:49)
[2019-06-27] MEDS: GABAPENTIN 250 MG/5 ML ORAL SOLUTION. PEG SCH ×2 (09:51→20:49)
[2019-06-27] MEDS: VALPROATE ACID 250 MG/5 ML ORAL SOLUTION PEG SCH ×2 (09:51→20:48)
[2019-06-27] MEDS: CETIRIZINE 5 MG/5 ML ORAL SOLUTION. PEG SCH (09:51)
[2019-06-27] MEDS: ARIPiprazole 10 MG TABLET PEG SCH (09:52)
[2019-06-27] MEDS: APIXABAN 5 MG TABLET. PO SCH ×2 (09:52→20:49)
[2019-06-27] MEDS: VENLAFAXINE 50 MG TABLET. PEG SCH ×2 (09:52→20:49)
[2019-06-27] MEDS: FAMOTIDINE 20 MG TABLET PEG SCH ×2 (09:52→20:49)
[2019-06-27] MEDS: CHOLECALCIFEROL (VITAMIN D3) 1,000 UNIT TABLET PEG SCH (09:54)
[2019-06-27] MEDS: METOPROLOL TART IMMED RELEASE 50 MG TABLET PO SCH ×2 (09:54→20:49)
[2019-06-27] MEDS: NYSTATIN 100,000 UNITS/ML ORAL SUSPENSION 60ML BOTTLE. SWSP SCH ×4 (09:55→20:49)
[2019-06-27 15:30] VITALS: BP 165/80
[2019-06-27 19:04] VITALS: BP 156/78
[2019-06-27] MEDS: INSULIN GLARGINE SYRINGE. SQ SCH (20:34)
[2019-06-27] MEDS: rOPINIRole 1 MG TABLET. PEG SCH (20:50)
[2019-06-27] MEDS: traZODone 50 MG TABLET. PEG SCH (20:50)
[2019-06-27] MEDS: ATORVASTATIN CALCIUM 20 MG TABLET PEG SCH (20:50)
--- NOTE | 2019-06-27 21:40 | PDOC ---
Exam Note: [place] Note: Please also refer to the separate dictated note~for this date of service dictated separately.~Patient seen individually. Discussed the patient with Nursing staff reviewed the chart.~Reviewed interim history and current functioning. Reviewed vital signs,~Labs/ Radiology~and current medications noted below. Continue current treatment with the changes noted in the dictated addendum note Assessment: Vital Signs/I&O: Vital Signs Date Time Temp Pulse Resp B/P (MAP) Pulse Ox O2 Delivery O2 Flow Rate FiO2 06/27/19 20:49 79 156/78 06/27/19 20:48 94 Room Air 06/27/19 19:04 97.8 14 06/27/19 08:57 2.0 I & O 06/26/19 06/26/19 06/27/19 15:00 23:00 07:00 Intake Total 980 ml 590 ml 0 ml Balance 980 ml 590 ml 0 ml Current Medications: Meds: Current Medications Medications (Trade) Dose Ordered Sig/Earnest Route PRN Reason Start Time Stop Time Status Last Admin Dose Admin Levofloxacin (Levaquin) 750 mg DAILY07 PEG 06/27/19 07:00 06/27/19 06:24 I have reviewed the current psychotropics carefully including drug interactions. Risk benefit ratio favors no change other than as noted in my dictated progress note. Diagnosis: Problems: (1) Anxiety disorder (2) Major depressive disorder, recurrent episode (3) Impulse control disorder (4) Personality disorder in adult (5) Psychosis, atypical (6) Attention deficit disorder with hyperactivity (7) Attention deficit disorder (ADD) (8) Bipolar affective disorder, mixed KADEN ROSSI MD Jun 27, 2019 21:40
--- NOTE | 2019-06-27 22:36 | PN ---
DATE: 06/26/2019 PSYCHIATRIC PROGRESS NOTE This late entry, 06/26, covers the elements not covered in my initial note. SUBJECTIVE: I met with the patient on the evening of 06/26 in ICU bed 2. Per nursing report, the patient has been a little more depressed today. Her son apparently drove in from [place] to visit her because he thought she was terminally ill and had brought her as well. She refused to see them and then after they left, she was feeling very guilty and conflicted about this. Apparently, there have been significant amount of conflicts in these relationships. The patient was unable to get herself to accept them coming into the ICU to visit her and they sat outside for a while before they left and she is ruminating about this as I met with her, but accepting of her own feelings. REVIEW OF SYSTEMS: Ambulation still impaired, but improving with assistance and walker. No CV, , pulmonary, eye systems symptoms on review, does complain of tiredness. MENTAL STATUS EXAM: Reasonably oriented. Speech has some latency, low in volume, coherent, abstraction fair, computation somewhat impaired, language function intact. Mood and affect somewhat dysphoric, but no suicidal ideation on close questioning. LABORATORY DATA: Reviewed. IMPRESSION: Unchanged from initial note. PLAN: No change from initial note. When she is medically stable, we will have to reassess the patient whether she needs to be back on the [facility] or can transition to [facility] care and thereafter back to [facility] with [facility]. KADEN ROSSI MD DR: LAWSON/dimitri JOB#: [id number] / [id number]
[2019-06-27 23:05] VITALS: BP 122/58
[2019-06-28] MEDS: IPRATRPIUM/ALBUTEROL 0.5/2.5MG 3 ML NEBU. NEB SCH ×2 (05:02→10:35)
[2019-06-28 05:04] VITALS: BP 131/56
[2019-06-28] MEDS: levoFLOXacin 750 MG TABLET PEG SCH (06:07)
[2019-06-28] MEDS: INSULIN LISPRO 300 UNITS/3 ML VIAL. SQ SCH ×2 (08:00→11:56)
[2019-06-28] MEDS: METOCLOPRAMIDE HCL 10 MG/10 ML SOLUTION. PEG SCH ×2 (08:02→11:55)
[2019-06-28] MEDS: NYSTATIN 100,000 UNITS/ML ORAL SUSPENSION 60ML BOTTLE. SWSP SCH ×2 (08:02→13:21)
[2019-06-28] MEDS: VALPROATE ACID 250 MG/5 ML ORAL SOLUTION PEG SCH (08:05)
[2019-06-28] MEDS: guaiFENesin 300 MG/15 ML LIQUID PEG SCH (08:05)
[2019-06-28] MEDS: ARIPiprazole 10 MG TABLET PEG SCH (08:06)
[2019-06-28] MEDS: metFORMIN 500 MG TABLET PO SCH (08:06)
[2019-06-28] MEDS: LEVOTHYROXINE 125 MCG TABLET PEG SCH (08:06)
[2019-06-28] MEDS: POTASSIUM BICARB 20 MEQ EFFERVESCENT TABLET. PEG SCH ×2 (08:06→11:55)
[2019-06-28] MEDS: VENLAFAXINE 50 MG TABLET. PEG SCH (08:06)
[2019-06-28] MEDS: CETIRIZINE 5 MG/5 ML ORAL SOLUTION. PEG SCH (08:06)
[2019-06-28] MEDS: FAMOTIDINE 20 MG TABLET PEG SCH (08:07)
[2019-06-28] MEDS: METOPROLOL TART IMMED RELEASE 50 MG TABLET PO SCH (08:07)
[2019-06-28] MEDS: CHOLECALCIFEROL (VITAMIN D3) 1,000 UNIT TABLET PEG SCH (08:07)
[2019-06-28] MEDS: METHYLPHENIDATE HCL 5 MG TABLET PEG SCH ×2 (08:07→11:55)
[2019-06-28] MEDS: APIXABAN 5 MG TABLET. PO SCH (08:07)
[2019-06-28] MEDS: GABAPENTIN 250 MG/5 ML ORAL SOLUTION. PEG SCH (08:09)
[2019-06-28 11:00] VITALS: BP 136/67
[2019-06-28] MEDS ORDERED: LEVO750T31 PO (12:10)
--- NOTE | 2019-06-28 12:13 | DISCH ---
HOME HEALTH DISCHARGE/MEDS DISCHARGE INFORMATION: Discharge Date: Jun 28, 2019 Final Diagnosis: hcap acute hypoxic resp. failure acute pulmonary embolism Condition on Discharge: Stable CODE STATUS: Code Status: Full HOME HEALTH: Face to Face: I certify this patient is under my care and that I, or a nurse practitioner or physician's housekeeper and laundry assistant working with me, had a face to face encounter that meets the physician face to face encounter requirements with this patient on 06/28/19 Medical Condition(s): Pneumonia, Other [facility] For: Admin/Educate Injections Physical Therapy For: Evalulation/Treatment Occupational Therapy For: Evaluation/Treatment Homebound Status Met By: Extreme weakness w/ amb. POST DISCHARGE ORDERS: DIET AFTER DISCHARGE: Regular CERTIFICATION STATEMENT: Certification Statement: Based on the above finding, I certify that this patient is confined to the home and needs intermittent prison care, physical therapy and/or speech therapy, or continues to need occupational therapy.~ This patient is under my care, and I have initiated the establishment of the plan of care.~ This patient will be followed by myself or a community physician who will periodically review the plan of care. DISCHARGE MEDICATIONS: Home Meds Active Scripts Levofloxacin (LEVAQUIN) 750 Mg Tablet, 1 TAB PO DAILY for HCAP for 4 Days, #4 TAB 0 Refills Prov:LIZZIE NIEVES MD 06/28/19 Reported Medications Amlodipine Besylate (AMLODIPINE BESYLATE) 5 Mg Tablet, 5 MG PEG DAILY for Hypertension LAST DOSE GIVEN: DATE: TIME: NEXT DOSE DUE: DATE: TIME: 06/21/19 Valproate Sodium (VALPROIC ACID) 500 Mg/10 Ml Solution, 500 MG PEG BID for mood stabilizer LAST DOSE GIVEN: DATE: TIME: NEXT DOSE DUE: DATE: TIME: 06/21/19 Olanzapine (OLANZAPINE) 5 Mg Tablet, 2.5 MG PEG PRN Q2HR PRN for PSYCHOSIS LAST DOSE GIVEN: DATE: TIME: NEXT DOSE DUE: DATE: TIME: 06/21/19 Nystatin (NYSTATIN) 100,000 Unit/1 Ml Oral.susp, 5 ML SWSP QID for Thrush LAST DOSE GIVEN: DATE: TIME: NEXT DOSE DUE: DATE: TIME: 06/21/19 Methylphenidate Hcl (METHYLPHENIDATE HCL) 10 Mg Tablet, 10 MG PEG BIDACBL for mood stabilzer LAST DOSE GIVEN: DATE: TIME: NEXT DOSE DUE: DATE: TIME: 06/21/19 Methyl Salicylate/Menthol (Analgesic Nocona) 28 Gm Oint...g., 1 CHARISSE TP PRN QID PRN for MUSCLE PAIN LAST DOSE GIVEN: DATE: TIME: NEXT DOSE DUE: DATE: TIME: 06/21/19 Magnesium Hydroxide (MILK OF MAGNESIA) 2,400 Mg/10 Ml Oral.susp, 2400 MG PEG PRN QHS PRN for CONSTIPATION LAST DOSE GIVEN: DATE: TIME: NEXT DOSE DUE: DATE: TIME: 06/21/19 Mag Hydrox/Al Hydrox/Simeth (MAG-AL PLUS XS SUSPENSION) 30 Ml Oral.susp, 15 ML PEG PRN AFTMEALHC PRN for DYSPEPSIA LAST DOSE GIVEN: DATE: TIME: NEXT DOSE DUE: DATE: TIME: 06/21/19 Furosemide (FUROSEMIDE) 40 Mg Tablet, 40 MG PEG DAILY for Fluid retention LAST DOSE GIVEN: DATE: TIME: NEXT DOSE DUE: DATE: TIME: 06/21/19 Famotidine (FAMOTIDINE) 20 Mg Tablet, 20 MG PEG BID for GERD LAST DOSE GIVEN: DATE: TIME: NEXT DOSE DUE: DATE: TIME: 06/21/19 Acetaminophen (ACETAMINOPHEN) 160 Mg/5 Ml Solution, 650 MG PEG PRN Q6HRS PRN for PAIN / TEMP LAST DOSE GIVEN: DATE: TIME: NEXT DOSE DUE: DATE: TIME: 06/14/19 Aripiprazole (ABILIFY) 15 Mg Tablet, 20 MG PEG DAILY for Mood LAST DOSE GIVEN: DATE: TIME: NEXT DOSE DUE: DATE: TIME: 06/14/19 Tramadol Hcl (TRAMADOL HCL) 50 Mg Tablet, 50 MG PEG PRN TID PRN for PAIN LAST DOSE GIVEN: DATE: TIME: NEXT DOSE DUE: DATE: TIME: 06/14/19 Venlafaxine Hcl (VENLAFAXINE HCL) 100 Mg Tablet, 50 MG PEG BIDWMEALS for MDD LAST DOSE GIVEN: DATE: TIME: NEXT DOSE DUE: DATE: TIME: 06/14/19 Potassium Chloride (KLOR-CON M20) 20 Meq Tab.er.prt, 20 MEQ PEG TID for Suppleme nt LAST DOSE GIVEN: DATE: TIME: NEXT DOSE DUE: DATE: TIME: 06/14/19 Metformin Hcl (METFORMIN HCL) 500 Mg Tablet, 500 MG PEG BIDWMEALS for ANTI- DIABETIC, 0 Refills LAST DOSE GIVEN: DATE: TIME: NEXT DOSE DUE: DATE: TIME: 06/14/19 Trazodone Hcl (TRAZODONE HCL) 50 Mg Tablet, 50 MG PEG QHS for insomnia LAST DOSE GIVEN: DATE: TIME: NEXT DOSE DUE: DATE: TIME: 04/11/19 Cetirizine Hcl (CETIRIZINE HCL) 1 Mg/1 Ml Solution, 10 MG PEG DAILY for Allergies LAST DOSE GIVEN: DATE: TIME: NEXT DOSE DUE: DATE: TIME: 04/10/19 Insulin Aspart (NOVOLOG) 100 Unit/1 Ml Vial, 6 UNIT SQ TIDAC for Diabetes LAST DOSE GIVEN: DATE: TIME: NEXT DOSE DUE: DATE: TIME: 03/14/19 Gabapentin (GABAPENTIN ORAL SOLUTION) 250 Mg/5 Ml Solution, 500 MG PEG BID for Neuropathy LAST DOSE GIVEN: DATE: TIME: NEXT DOSE DUE: DATE: TIME: 03/14/19 Atorvastatin Calcium (ATORVASTATIN CALCIUM) 20 Mg Tablet, 20 MG PEG QHS for FOR CHOLESTEROL LAST DOSE GIVEN: DATE: TIME: NEXT DOSE DUE: DATE: TIME: 03/14/19 Polyethylene Glycol 3350 (MIRALAX) 17 Gm Powd.pack, 1 PACKET PEG PRN DAILY PRN for CONSTIPATION Dissolve in water LAST DOSE GIVEN: DATE: TIME: NEXT DOSE DUE: DATE: TIME: 03/14/19 Ropinirole Hcl (ROPINIROLE HCL) 1 Mg Tablet, 1 MG PEG QHS for restless legs LAST DOSE GIVEN: DATE: TIME: NEXT DOSE DUE: DATE: TIME: 03/14/19 Metoclopramide Hcl (REGLAN) 10 Mg Tablet, 5 MG PEG TIDAC for stomach LAST DOSE GIVEN: DATE: TIME: NEXT DOSE DUE: DATE: TIME: 03/14/19 Melatonin (MELATONIN) 3 Mg Tablet, 3 MG PEG PRN QHS PRN for INSOMNIA, MAY REPEAT X1 LAST DOSE GIVEN: DATE: TIME: NEXT DOSE DUE: DATE: TIME: 03/14/19 Levothyroxine Sodium (LEVOTHYROXINE SODIUM) 125 Mcg Tablet, 125 MCG PEG DAILYAC for THYROID SUPPLEMENT LAST DOSE GIVEN: DATE: TIME: NEXT DOSE DUE: DATE: TIME: 03/14/19 Insulin Glargine,Hum.rec.anlog (LANTUS SOLOSTAR) 100 Unit/1 Ml Insuln.pen, 6 UNIT SQ QHS for Diabetes LAST DOSE GIVEN: DATE: TIME: NEXT DOSE DUE: DATE: TIME: 03/14/19 Cholecalciferol (Vitamin D3) (VITAMIN D3) 1,000 Unit Tablet, 2000 UNIT PEG DAILY for supplement LAST DOSE GIVEN: DATE: TIME: NEXT DOSE DUE: DATE: TIME: 03/14/19 Discontinued Reported Medications Dextroamphetamine/Amphetamine (ADDERALL 5 MG TABLET) 5 Mg Tablet, 1 TAB PEG BID for MDD MDD 2 Tablet(s) 06/14/19 Ranitidine Hcl (RANITIDINE HCL) 15 Mg/1 Ml Syrup, 150 MG PEG BIDBFRMEAL for GERD , MISC 03/14/19 LIZZIE NIEVES MD Jun 28, 2019 12:13
--- NOTE | 2019-06-28 12:35 | DS ---
DATE OF DISCHARGE: HOSPITAL COURSE: The patient is a 63-year-old female patient who was transferred from [facility] on account of shortness of breath and hypoxia. Her oxygen saturation dropped down to 83%, was extremely wheezy, complaining of pain on inspiration and when coughing with moist nonproductive cough. She was transferred to the ICU, was found to have her D-dimer was high and a CT angio of the chest showed that she has pneumonia as well as pulmonary emboli and therefore, the patient was treated with apixaban as well as IV antibiotic. She did extremely well. She has had no fever, no shortness of breath. She is maintaining her oxygen saturation at 95% on room air and a decision was made to discharge her home with home health to continue the oral antibiotic, continue obviously with apixaban and all other medication. PHYSICAL EXAMINATION: GENERAL: When I saw her this morning, she was resting slightly propped up in bed, in no apparent respiratory distress. No pallor, jaundice, cyanosis or thyromegaly. No jugular venous distention. No limb edema. VITAL SIGNS: Her heart rate was 80, blood pressure was 131/56, temperature was 97.5, respiratory rate was 17 and oxygen saturation was 91%. HEAD, EYES, EARS, NOSE AND THROAT: Showed she is normocephalic, atraumatic. NECK: Supple. CARDIAC: Normal first and second heart sounds. No gallop, rub or murmur. CHEST: Clear to auscultation. No crepitation or rhonchi. ABDOMEN: Distended, soft with gastrostomy tube in place. NEUROLOGIC: She is awake, alert, responding appropriately. All cranial nerves intact. EXTREMITIES: She moves extremities without difficulty. She ambulates without assistance or assistive devices. LABORATORY DATA: This morning showed a white cell count of 3900, hemoglobin 12, hematocrit 38, MCV 95, and platelet count of 167,000. Her chemistry showed a serum sodium 143, potassium 4.2, chloride 104, bicarbonate 36, anion gap of 3, BUN 18, creatinine 0.9, estimated GFR was 64 mL per minute and glucose was 85, calcium was 8.9. D-dimer was high at 0.95. Toxic screen showed her vancomycin was within therapeutic range. Her blood cultures were negative. Her CT angio of the chest showed that there is pulmonary embolic disease, most notably embolism in the distal right main pulmonary artery extending into the right interlobar artery. There are likely some small peripheral emboli in the lower lobes, greater on the right though poorly characterized on this motion degraded exam. There is mild left lower lobe infiltrate near the base and mild right lower lobe atelectasis. DISCHARGE MEDICATIONS: The patient was discharged home to continue on apixaban 5 mg twice a day, levofloxacin 750 mg per feeding tube daily for 4 more days, metoprolol tartrate 50 mg per feeding tube twice a day, metformin 500 mg per feeding tube twice a day. She is on Lantus insulin 60 units subcutaneously at bedtime and trazodone 50 mg at bedtime, ropinirole or Requip 1 mg per feeding tube at bedtime, atorvastatin calcium 20 mg per feeding tube at bedtime, lorazepam 1 mg, guaifenesin 300 mg 3 times a day, valproic acid 500 mg per feeding tube twice a day, venlafaxine 50 mg per feeding tube twice a day, nystatin suspension 5 mL swish and spit 4 times a day, gabapentin 500 mg per feeding tube twice a day, famotidine 20 mg per feeding tube twice a day, vitamin D 2000 international unit per feeding tube daily, cetirizine 10 mg oral solution per feeding tube daily, aripiprazole 20 mg per feeding tube once a day. She is on DuoNeb 3 mL by nebulizer 4 times a day. She is on Humalog insulin 6 units before meals, potassium bicarbonate 20 mEq 3 times a day, methylphenidate 10 mg per feeding tube twice a day and metoclopramide 5 mg per feeding tube 3 times a day before meals, levothyroxine sodium 125 mcg per feeding tube daily, tramadol 50 mg by feeding tube 3 times a day, polyethylene glycol 17 grams per feeding tube daily, olanzapine 2.5 mg every 2 hours as needed, melatonin 3 mg per feeding tube at bedtime. FINAL DISCHARGE DIAGNOSES: 1. Acute hypoxic respiratory failure that has resolved. She is now maintaining her oxygen saturation at 95% on room air. 2. Healthcare-associated pneumonia, for which she will continue treatment with oral levofloxacin. 3. Acute pulmonary emboli, mostly in the right side, for which she is on apixaban. 4. She has multiple other medical problems including: A. Hypertension, seems to be well controlled. B. Type 2 diabetes mellitus, also excellently controlled. C. Hypothyroidism. She is both clinically and biochemically euthyroid. D. Bronchial asthma, clinically quiescent. E. Chronic kidney disease, stable. F. Traumatic brain injury. G. 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 LIZZIE NIEVES MD DR: MIGUEL/dimitri JOB#: [id number] / [id number]
[2019-06-29] MEDS ORDERED: APIXABAN 5 MG TABLET. PO SCH (09:00)
[2019-07-02] MEDS ORDERED: APIXABAN 5 MG TABLET. PO SCH (09:00)
== END 2019-06-28 14:24 | disposition home health service (06) | DRG 177 ==
LOC: ICU 02:00
PROVIDERS: ADMIT Internal Medicine; ATTEND Internal Medicine
DX: J15.6 Pneumonia due to other Gram-negative bacteria (principal); I26.99 Other pulmonary embolism without acute cor pulmonale; J96.01 Acute respiratory failure with hypoxia; F31.64 Bipolar disorder, current episode mixed, severe, with psychotic features; J98.11 Atelectasis; J15.9 Unspecified bacterial pneumonia; E03.9 Hypothyroidism, unspecified; E11.22 Type 2 diabetes mellitus with diabetic chronic kidney disease; E66.01 Morbid (severe) obesity due to excess calories; F41.1 Generalized anxiety disorder; F43.10 Post-traumatic stress disorder, unspecified; F60.9 Personality disorder, unspecified; F63.9 Impulse disorder, unspecified; F90.9 Attention-deficit hyperactivity disorder, unspecified type; I12.9 Hypertensive chronic kidney disease with stage 1 through stage 4 chronic kidney disease, or unspecified chronic kidney disease; R13.10 Dysphagia, unspecified; J45.909 Unspecified asthma, uncomplicated; Y95 Nosocomial condition; Z88.0 Allergy status to penicillin; Z88.5 Allergy status to narcotic agent; Z88.8 Allergy status to other drugs, medicaments and biological substances; Z91.018 Allergy to other foods; Z87.820 Personal history of traumatic brain injury
CPT/HCPCS: 36415; 36569; 71275; 80048; 80053; 80202; 82947; 83605; 83880; 84145; 84484; 85025; 85027; 85379; 87040; 94618; 94640; J1650; J1815; J2060; J2185; J3370; J7040; J7620; J8597; Q9967; 97116; 97535